=== PATIENT | male | born 1950 | race Caucasian/White ===

== ENCOUNTER 2017-10-30 11:05 | Outpatient (RCR) | payer MEDICARE ==
[~2017-10-30 11:05] MED LIST: ASPIRIN81 MG PO; DILTIAZEM 24HR180 M1 PO; DOXAZOSIN MESYLA2 MG PO; GLUCOSAMINE1000 MG PO; GLYBURIDE-METF1 EAC1 PO; LIPITOR20 MG PO; MULTI-VITAMIN1 EACH PO; NABUMETONE500 MG PO; RAMIPRIL5 MG PO; SLOW RELEASE I143 MG PO; TRIAMTERENE-HCTZ1 EA PO; VITAMIN D5000 UNIT PO
== END 2017-11-29 ==
LOC: WCC 11:05
PROVIDERS: ATTEND Internal Medicine Infectious Disease
DX: E11.65 Type 2 diabetes mellitus with hyperglycemia (principal); I87.332 Chronic venous hypertension (idiopathic) with ulcer and inflammation of left lower extremity; I87.331 Chronic venous hypertension (idiopathic) with ulcer and inflammation of right lower extremity; L97.822 Non-pressure chronic ulcer of other part of left lower leg with fat layer exposed; L97.812 Non-pressure chronic ulcer of other part of right lower leg with fat layer exposed; L97.811 Non-pressure chronic ulcer of other part of right lower leg limited to breakdown of skin; L03.115 Cellulitis of right lower limb; I83.11 Varicose veins of right lower extremity with inflammation; I89.0 Lymphedema, not elsewhere classified; I87.2 Venous insufficiency (chronic) (peripheral); R60.0 Localized edema; R60.9 Edema, unspecified; I73.89 Other specified peripheral vascular diseases; B95.62 Methicillin resistant Staphylococcus aureus infection as the cause of diseases classified elsewhere; B96.5 Pseudomonas (aeruginosa) (mallei) (pseudomallei) as the cause of diseases classified elsewhere; B96.89 Other specified bacterial agents as the cause of diseases classified elsewhere; I10 Essential (primary) hypertension; D50.9 Iron deficiency anemia, unspecified; E66.01 Morbid (severe) obesity due to excess calories; G47.33 Obstructive sleep apnea (adult) (pediatric); I25.10 Atherosclerotic heart disease of native coronary artery without angina pectoris; I50.9 Heart failure, unspecified

== ENCOUNTER 2018-03-21 13:39 | Inpatient (IN) | payer MEDICARE ==
[~2018-03-21] VITALS: Ht 190.5 cm; Wt 210.3 kg
[2018-03-21] VITALS (22 sets, daily range): BP systolic 97–152; BP diastolic 52–79
--- OUTSIDE RECORDS SUMMARY | 2018-03-21 13:41 | XMS REPORT ---
[facility] Address Unknown Phone Unavailable Care Team Providers Care Enamel Sprayer Name Role Phone CORINA CORDOVA Unavailable Unavailable Problems This patient has no known problems. Allergies, Adverse Reactions, Alerts This patient has no known allergies or adverse reactions. Medications This patient has no known medications. Results Test Description Test Time Test Comments Text Results Atomic Results Result Comments CHEST 2 VIEWS [place] [address] Patient Name: VICKI SANTANA MR #: [id number] : 1950 Age/Sex: 66/M Req # : [id number] Adm Physician: Ordered by: CORINA CORDOVA MD Report #: [id number] Location: OR Room/Bed: Procedure: [id number] DX/CHEST 2 VIEWS Exam Date: 08/21/17 Exam Time: 1320 REPORT STATUS: Signed PROCEDURE: Frontal and lateral views of the chest. COMPARISON: [facility], DX, CHEST XRAY LINE PLACEMENT, 03/29/2013, 18:04. INDICATIONS: PREOPERATIVE CHEST XRAY FOR SKIN GRAFT FINDINGS: Exam limited by soft tissue attenuation. Lines/tubes: None. Lungs: The lungs are mildly hypoinflated, but grossly clear. There is no evidence of pneumonia or pulmonary edema. Pleura: There is no pleural effusion or pneumothorax. Heart and mediastinum: Borderline enlarged cardiac silhouette. Pulmonary vasculature is normal. Bones: No acute bony abnormality. IMPRESSION: 1. No acute cardiopulmonary abnormalities. Mary Lay M.D. Dictated by: Mary Lay M.D. on 08/21/2017 at 13:52 Electronically approved by: Mary Lay M.D. on 08/21/2017 at 13:52 Dictated By: MARY LAY MD 1352 Transcribed By: CHARBEL on 08/21/17 1352 COPY TO: CORINA CORDOVA MD
[2018-03-21 14:25] LABS: BASOPHILS % 0.1 % (0.0-1.0); EOSINOPHILS # (AUTO) 0.1 (0.0-0.4); EOSINOPHILS % 0.7 % (0.0-6.0); HEMATOCRIT 35.3 % (38.2-49.6); HEMOGLOBIN 11.9 g/dL (14.0-18.0); LYMPHOCYTES # (AUTO) 0.6 (1.0-3.2); LYMPHOCYTES % 7.3 % (18.0-39.1); MEAN CORPUSCULAR HEMOGLOBIN 32.2 pg (28-32); MEAN CORPUSCULAR HGB CONC 33.7 g/dL (31-35); MEAN CORPUSCULAR VOLUME 95.4 fL (81-99); MONOCYTES # (AUTO) 0.7 (0.2-0.8); NEUTROPHILS # (AUTO) 6.7 (2.1-6.9); NEUTROPHILS % 82.4 % (38.7-80.0); PLATELET COUNT 169 x10e3/uL (140-360); RED CELL DISTRIBUTION WIDTH 13.8 % (11.7-14.4)
[2018-03-21 14:49] LABS: ALBUMIN 2.8 g/dL (3.5-5.0); ALBUMIN/GLOBULIN RATIO 0.8 (0.8-2.0); ANION GAP 13.7 mmol/L (8-16); CREATININE, SERUM 1.48 mg/dL (0.72-1.25); POTASSIUM 3.7 mmol/L (3.5-5.1)
[2018-03-21] MEDS ORDERED: DEXTROSE 50% SYRINGE 50 ML IV STA (14:56)
[2018-03-21 14:58] LABS: CREATINE KINASE MB 3.4 ng/mL (0-5.0)
--- NOTE | 2018-03-21 15:01 | Diagnostic Imaging Report ---
Portable chest x-ray INDICATION: Hypoglycemia, shortness of breath COMPARISON: None FINDINGS: Frontal view of the chest obtained at 1443 hours. Image is compromised due to patient's generous body habitus and underpenetration of the image. The cardiac silhouette is enlarged. The lungs demonstrate low lung volumes. No confluent infiltrates. Central pulmonary vasculature is prominent. No large effusions. There is no pneumothorax. The osseous structures are intact and normal in morphology. IMPRESSION: 1. Cardiomegaly and central vascular congestion. 2. No confluent infiltrates given the limitations of this image. Signed by: Dr. Aditya Brown MD on 03/21/2018 2:58 PM
[2018-03-21] MEDS ORDERED: CIPRO500 MG PO (15:10)
[2018-03-21] MEDS ORDERED: CLINDAMYCIN HC300 MG PO (15:10)
[2018-03-21 15:42] LABS: CLARITY,URINE SL CLOUDY (CLEAR); COLOR,URINE YELLOW (YELLOW); LEUKOCYTE ESTERASE ,URINE TRACE (NEGATIVE); NITRITE,URINE NEGATIVE (NEGATIVE); PROTEIN,URINE DIPSTICK TRACE (NEGATIVE)
[2018-03-21 15:43] LABS: BILIRUBIN,URINE NEGATIVE (NEGATIVE); KETONES,URINE NEGATIVE (NEGATIVE); URINE UROBILINOGEN 0.2 mg/dL (0.2 - 1)
[2018-03-21] MEDS ORDERED: ASPIRIN 81 MG CHEW TAB PO ONE (15:45)
[2018-03-21] MEDS ORDERED: DEXTROSE 50% SYRINGE 50 ML IV ONE ×3 (15:52→19:50)
[2018-03-21 15:54] LABS: BACTERIA,URINE FEW /HPF; EPITHELIAL CELLS,URINE RARE /LPF
[2018-03-21] MEDS: DEXTROSE 5% 1,000 ML IV SCH (16:34)
[2018-03-21] MEDS: CIPROFLOXACIN 500 MG TAB PO SCH (20:37)
[2018-03-21] MEDS: MORPHINE SULFATE 2 MG/ML SYR IV PRN (20:38)
[2018-03-21] MEDS: ATORVASTATIN 20 MG TAB PO SCH (20:40)
[2018-03-21] MEDS: CLINDAMYCIN HCL 150 MG CAP PO SCH (20:40)
[2018-03-21 21:48] LABS: CLARITY,URINE SL CLOUDY (CLEAR); COLOR,URINE YELLOW (YELLOW); LEUKOCYTE ESTERASE ,URINE NEGATIVE (NEGATIVE); NITRITE,URINE NEGATIVE (NEGATIVE)
[2018-03-21 21:49] LABS: BILIRUBIN,URINE NEGATIVE (NEGATIVE); KETONES,URINE NEGATIVE (NEGATIVE); PROTEIN,URINE DIPSTICK TRACE (NEGATIVE); URINE UROBILINOGEN 0.2 mg/dL (0.2 - 1)
[2018-03-21 21:50] LABS: BACTERIA,URINE RARE /HPF; EPITHELIAL CELLS,URINE RARE /LPF
[2018-03-21 22:05] LABS: CREATINE KINASE MB 4.2 ng/mL (0-5.0)
[2018-03-22] VITALS (17 sets, daily range): BP systolic 86–145; BP diastolic 52–91
[2018-03-22] MEDS: MORPHINE SULFATE 2 MG/ML SYR IV PRN ×2 (01:03→04:14)
[2018-03-22 02:50] LABS: CREATINE KINASE MB 3.1 ng/mL (0-5.0)
[2018-03-22 06:13] LABS: BASOPHILS % 0.4 % (0.0-1.0); EOSINOPHILS # (AUTO) 0.1 (0.0-0.4); EOSINOPHILS % 1.5 % (0.0-6.0); HEMATOCRIT 34.8 % (38.2-49.6); HEMOGLOBIN 11.5 g/dL (14.0-18.0); LYMPHOCYTES # (AUTO) 0.6 (1.0-3.2); LYMPHOCYTES % 8.1 % (18.0-39.1); MEAN CORPUSCULAR HEMOGLOBIN 31.3 pg (28-32); MEAN CORPUSCULAR VOLUME 94.8 fL (81-99); MONOCYTES % 12.1 % (4.4-11.3); NEUTROPHILS # (AUTO) 6.2 (2.1-6.9); NEUTROPHILS % 77.4 % (38.7-80.0); PLATELET COUNT 181 x10e3/uL (140-360); RED BLOOD COUNT 3.67 x10e6/uL (4.3-5.7); RED CELL DISTRIBUTION WIDTH 13.7 % (11.7-14.4)
[2018-03-22 06:56] LABS: ALANINE AMINOTRANSFERASE 58 IU/L (0-55); ALBUMIN 2.6 g/dL (3.5-5.0); ALBUMIN/GLOBULIN RATIO 0.7 (0.8-2.0); ALKALINE PHOSPHATASE 81 IU/L (40-150); BLOOD UREA NITROGEN 30 mg/dL (7-26); BUN/CREATININE RATIO 26 (6-25); CALCIUM 9.1 mg/dL (8.4-10.2); CARBON DIOXIDE 27 mmol/L (22-29); CHLORIDE 102 mmol/L (98-107); CHOL/HDL RATIO 3.4 (3.9-4.7); CHOLESTEROL 115 MD/DL (0-199); CREATININE, SERUM 1.14 mg/dL (0.72-1.25); EST GLOMERULAR FILTRATION RATE > 60 ML/MIN (60-); GLUCOSE 99 mg/dL (74-118); HDL CHOLESTEROL 34 MG/DL (40-60); LDL CHOLESTEROL 65 MG/DL (60-130); MAGNESIUM 1.7 MG/DL (1.3-2.1); SODIUM 137 mmol/L (136-145); TRIGLYCERIDES 82 MG/DL (0-149)
[2018-03-22 07:36] LABS: CREATINE KINASE MB 2.8 ng/mL (0-5.0)
[2018-03-22] MEDS ORDERED: GLYBURIDE 5 MG TAB PO SCH (08:00)
[2018-03-22] MEDS ORDERED: METFORMIN HCL 500 MG TAB PO SCH (08:00)
[2018-03-22] MEDS: NABUMETONE 750 MG PO SCH ×2 (09:00→17:00)
[2018-03-22] MEDS ORDERED: DILTIAZEM HCL 180 MG CAP CD PO SCH (09:00)
[2018-03-22] MEDS ORDERED: TRIAMTERENE/HCTZ 37.5-25 MG TAB PO SCH (09:00)
[2018-03-22] MEDS ORDERED: ASPIRIN 325 MG TAB EC PO SCH (09:00)
[2018-03-22] MEDS: GLUCOSAMINE SULFATE 500 MG PO SCH (09:00)
[2018-03-22] MEDS: RAMIPRIL 5 MG CAP PO SCH ×2 (10:00→17:09)
[2018-03-22] MEDS: ASPIRIN 81 MG CHEW TAB PO SCH (10:00)
[2018-03-22] MEDS: CIPROFLOXACIN 500 MG TAB PO SCH ×3 (10:07→21:43)
[2018-03-22] MEDS: CHOLECALCIFEROL 1,000 UNIT TAB PO SCH (10:07)
[2018-03-22] MEDS: CLINDAMYCIN HCL 150 MG CAP PO SCH ×3 (10:07→21:43)
[2018-03-22] MEDS: DOXAZOSIN MESYLATE 2 MG TAB PO SCH ×2 (10:07→17:10)
[2018-03-22] MEDS: MULTIVITAMINS/MINERALS TAB PO SCH (10:07)
[2018-03-22] MEDS ORDERED: DEXTROSE 50% SYRINGE 50 ML IV PRN (11:45)
--- NOTE | 2018-03-22 12:28 | History and Physical ---
Mr. Cerrato is a pleasant but unfortunate 67-year-old man with morbid obesity, sleep apnea and diabetes. He was brought to the emergency room by ambulance after being found to be hypoglycemic. HISTORY OF PRESENT ILLNESS: Patient and his family report that he has recurring problems with cellulitis of the legs and that when is having active cellulitis that he loses his appetite, becomes nauseated and stops eating. He reports he continued to take his oral hypoglycemics and developed very low blood sugars in the night of Thursday night, the 20 of March, and then during the day of March 21. He denies any other active problems. He has never had chest pain or palpitations. PAST MEDICAL HISTORY: Significant primarily for morbid obesity. He reports he is about 6 feet tall, weighing about 500 pounds. He has had sleep apnea for some time, using CPAP, and he has recurring cellulitis of the legs for which he visits the wound care center, he tells me on [address]. He reports that he had skin grafting to his lower legs by Dr. Yañez in October 2017 and previous skin grafts in the past. He had remote appendectomy in his 20s and cholecystectomy in his 50s. MEDICATIONS: His previous home medications include: 1. Aspirin 81 mg daily. 2. Atorvastatin 20 mg daily. 3. Vitamin D. 4. Ciprofloxacin 500 mg t.i.d. 5. Clindamycin 300 mg t.i.d. 6. Diltiazem ER 300 mg daily. 7. Doxazosin 2 mg, total 4 mg b.i.d. 8. Iron sulfate. 9. Glucosamine. 10. Glyburide/metformin 5 and 500 mg b.i.d. 11. Multivitamin. 12. Nabumetone 750 mg b.i.d. 13. Ramipril 5 mg daily. 14. Triamterene and hydrochlorothiazide 37.5 and 25 daily. PERSONAL AND SOCIAL HISTORY: Does not smoke or drink, and he lives at home with his . REVIEW OF SYSTEMS: Cardiac: He denies ever knowing of any cardiac problem. He never had any chest pain or palpitations. He cannot recall visiting with a operations coordinator in the past. PHYSICAL EXAMINATION GENERAL: Exam at this time shows a large, obese man who awakes and is alert and oriented. Weighing about 500 pounds and being about 6 feet tall. VITAL SIGNS: Blood pressure now 127/76. Pulse 80 and regular. HEENT: Otherwise unremarkable. NECK: Very thick. THORAX: Heart sounds S1, S2 are equal. No murmurs. LUNGS: Relatively clear. ABDOMEN: Markedly protuberant. Small purpura. Normal bowel sounds. Nontender. EXTREMITIES: No cyanosis, clubbing or edema, but both anterior tibial regions are reddish. LABS: Pertinent laboratory studies show white count 7.9, hemoglobin 11.5, platelets 181,000. Admitting chemistries showed glucose 49, sodium 137, potassium 3.7, BUN 36, creatinine 1.48. Initial troponin I 1.48, but CK-MB completely normal at 3.40. Albumin is low. Repeat glucoses are 66, 82 and 93. Repeat troponin also abnormal at 1.49, but repeat CK-MB is also completely normal at 4.2. His BNP is 44. Urinalysis showed 6-10 red cells, 11-20 white cells with a few bacteria and 2-5 hyaline casts. ASSESSMENT 1. Hypoglycemia secondary to oral hypoglycemics and stopping eating. 2. Morbid obesity. 3. Cellulitis of the legs, recurring issue. 4. Sleep apnea treated with CPAP. PLAN: Will stop his oral hypoglycemics and ask for endocrine consultation to help manage his diabetic status. Will ask for continuing care from the investigation specialist. Will transfer him to the floor. Job#: [id number] cc:DEUCE REED DO
--- NOTE | 2018-03-22 14:41 | Consultation ---
DATE OF CONSULTATION: March 22, 2018 ENDOCRINE CONSULTATION Thank you very much for referring this patient. HISTORY OF PRESENT ILLNESS: This is a 67-year-old white gentleman who is referred to me for evaluation of hypoglycemia and uncontrolled diabetes mellitus. According to the family, the patient is a known diabetic for almost 10 years and takes a combination of the glyburide and metformin. He had 2 episodes of low blood sugar in the ranges of 29 to 30. He was brought to the emergency room. He was given D50. Patient also has history of obstructive pulmonary disease, morbid obesity. He is on CPAP. He also has cellulitis of both lower extremities. During the hospital stay, patient was also found to have high troponin levels. Patient is on multiple medications at home including the medications for diabetes. No history of coronary artery disease in the past. He has history of hypertension. PHYSICAL EXAMINATION: GENERAL: Today the patient is alert, awake, a little bit apprehensive. He is morbidly obese. VITAL SIGNS: His heart rate is around 78. Blood pressure 140/80 mmHg. HEENT: Examination essentially unremarkable. Thyroid is palpable. Clinically he is near euthyroid. CHEST: Bilateral vesicular breathing. He has got bilateral bronchospasm. CARDIAC: Both 1st and 2nd heart sounds. There is no 3rd or 4th heart sound. Ejection sound grade 2/6. ABDOMEN: He has an obese abdomen. EXTREMITIES: He has cellulitis of both lower extremities. CLINICAL IMPRESSION: 1. Diabetes mellitus type 2, uncontrolled, with complications. 2. Recurrent hypoglycemic episode related to oral hypoglycemics. 3. Hypertension. 4. Obstructive pulmonary disease. 5. Morbid obesity. 6. Cellulitis of the lower extremities. 7. Rule out coronary artery disease. The plan at this time is to do a hemoglobin A1c, thyroid function test. Monitor his blood sugars closely. Hold oral hypoglycemics for now and give him the sliding-scale insulin only for now. Thanks again for referring this patient. I will be following this patient with you. Job#: [id number] EV MTDEvelyn
[2018-03-22 14:48] LABS: FREE T4 (FREE THYROXINE) 1.26 ng/dL (0.9-1.8); THYROID STIMULATING HORMONE 0.216 uIU/mL (0.350-4.940)
[2018-03-22] MEDS: DEXTROSE 5% 1,000 ML IV SCH (16:15)
[2018-03-22] MEDS ORDERED: INSULIN LISPRO 100 UNIT/1 ML 3ML VIAL SQ SCH (16:30)
[2018-03-22] MEDS: INSULIN LISPRO 100 UNIT/1 ML 3ML VIAL SQ SCH ×2 (17:18→21:00)
[2018-03-22] MEDS: ATORVASTATIN 20 MG TAB PO SCH (21:43)
[2018-03-23] VITALS (85 sets, daily range): BP systolic 63–140; BP diastolic 37–106
[2018-03-23] MEDS ORDERED: ACETAMINOPHEN 650 MG SUPP PR PRN (00:45)
[2018-03-23] MEDS: ACETAMINOPHEN 325 MG TAB PO PRN (01:15)
[2018-03-23 03:58] LABS: BASOPHILS # (AUTO) 0.1 (0.0-0.1); BASOPHILS % 0.7 % (0.0-1.0); EOSINOPHILS # (AUTO) 0.1 (0.0-0.4); EOSINOPHILS % 0.5 % (0.0-6.0); HEMATOCRIT 38.2 % (38.2-49.6); HEMOGLOBIN 12.4 g/dL (14.0-18.0); LYMPHOCYTES % 18.5 % (18.0-39.1); MEAN CORPUSCULAR HEMOGLOBIN 31.4 pg (28-32); MEAN CORPUSCULAR HGB CONC 32.5 g/dL (31-35); MEAN CORPUSCULAR VOLUME 96.7 fL (81-99); MONOCYTES % 12.2 % (4.4-11.3); NEUTROPHILS # (AUTO) 10.7 (2.1-6.9); NEUTROPHILS % 65.4 % (38.7-80.0); PLATELET COUNT 208 x10e3/uL (140-360); RED BLOOD COUNT 3.95 x10e6/uL (4.3-5.7); RED CELL DISTRIBUTION WIDTH 13.6 % (11.7-14.4)
[2018-03-23] MEDS ORDERED: PROPOFOL IV EMULSION 10MG/ML 100 ML ONE (04:02)
[2018-03-23 04:09] LABS: INR 1.32; PROTHROMBIN TIME 15.4 seconds (11.9-14.5)
[2018-03-23 04:17] LABS: ALBUMIN 2.6 g/dL (3.5-5.0); ALBUMIN/GLOBULIN RATIO 0.6 (0.8-2.0); ANION GAP 15.5 mmol/L (8-16); CALCIUM 9.4 mg/dL (8.4-10.2); CREATININE, SERUM 1.49 mg/dL (0.72-1.25); MAGNESIUM 1.7 MG/DL (1.3-2.1); POTASSIUM 4.5 mmol/L (3.5-5.1)
[2018-03-23 04:23] LABS: CREATINE KINASE MB 1.1 ng/mL (0-5.0)
--- NOTE | 2018-03-23 04:57 | Diagnostic Imaging Report ---
EXAMINATION: CHEST SINGLE (PORTABLE) INDICATION: Respiratory distress COMPARISON: 03/21/2018 FINDINGS: TUBES and LINES: Endotracheal tube is visualized with tip at the level of the mid trachea 6.7 cm above the osmar LUNGS: Lungs are not well inflated. Multifocal airspace opacities predominantly involving the left lung with air bronchogram. PLEURA: No pleural effusion or pneumothorax. HEART AND MEDIASTINUM: Cardiac size is moderately enlarged. There are atherosclerotic calcifications within the aorta. BONES AND SOFT TISSUES: No acute osseous lesion. Soft tissues are unremarkable. UPPER ABDOMEN: No free air under the diaphragm. IMPRESSION: Findings are compatible with pneumonia versus aspiration Signed by: Dr. Trace Panchal M.D. on 03/23/2018 4:53 AM
[2018-03-23] MEDS ORDERED: NOREPINEPHRINE 8 MG/D5W 250 ML 250 ML ONE (05:13)
[2018-03-23] MEDS: NOREPINEPHRINE INJ 4MG/4ML 8 MG in DEXTROSE 5% 250ML 250 ML IV PRN ×2 (06:16→20:16)
[2018-03-23] MEDS ORDERED: PROPOFOL IV EMULSION 10MG/ML 100 ML IV SCH (06:45)
[2018-03-23 06:47] LABS: LYMPHOCYTES % (MANUAL) 19 % (19-48); METAMYELOCYTES % (MANUAL) 1 % (0-0); MONOCYTES % (MANUAL) 11 % (3.4-9.0); MYELOCYTES % (MANUAL) 2 % (0-0); NEUTROPHILS % (MANUAL) 67 % (40-74)
[2018-03-23 07:18] LABS: ABG HCO3 27 mmol/L (23-28); ABG PCO2 62 mmHg (41-51); ABG PH 7.26 (7.31-7.41); ABG PO2 59 mmHg (80-105)
[2018-03-23 07:27] LABS: ANISOCYTOSIS SLIGHT; PLATELET ESTIMATE ADEQUATE; PLATELET MORPHOLOGY COMMENT NORMAL; RBC MORPHOLOGY COMMENT NORMAL
[2018-03-23] MEDS: INSULIN LISPRO 100 UNIT/1 ML 3ML VIAL SQ SCH ×4 (07:30→22:31)
[2018-03-23 08:05] LABS: BASOPHILS # (AUTO) 0.1 (0.0-0.1); BASOPHILS % 0.3 % (0.0-1.0); EOSINOPHILS % 0.1 % (0.0-6.0); HEMATOCRIT 37.8 % (38.2-49.6); HEMOGLOBIN 12.3 g/dL (14.0-18.0); LYMPHOCYTES # (AUTO) 1.1 (1.0-3.2); MEAN CORPUSCULAR HEMOGLOBIN 31.6 pg (28-32); MEAN CORPUSCULAR HGB CONC 32.5 g/dL (31-35); MEAN CORPUSCULAR VOLUME 97.2 fL (81-99); MONOCYTES # (AUTO) 2.3 (0.2-0.8); NEUTROPHILS # (AUTO) 13.9 (2.1-6.9); PLATELET COUNT 211 x10e3/uL (140-360); RED BLOOD COUNT 3.89 x10e6/uL (4.3-5.7)
[2018-03-23] MEDS ORDERED: PHENYLEPHRINE 10MG/ML VIAL 40 MG in DEXTROSE 5% 250ML 250 ML IV PRN (08:15)
[2018-03-23] MEDS: MIDAZOLAM HCL 25 MG in SODIUM CHLORIDE 0.9% 50ML 45 ML IV PRN ×4 (08:45→21:17)
[2018-03-23] MEDS: HEPARIN 25,000U/0.45% NS 250ML 1,500 UNIT in SODIUM CHLORIDE 0.9% 250ML 0 ML IV SCH (08:52)
--- NOTE | 2018-03-23 08:53 | Diagnostic Imaging Report ---
PROCEDURE: A single AP view of the chest. COMPARISON: None. INDICATIONS: ETT REPOSITIONED FINDINGS: Lines/tubes: Endotracheal tube with its tip above the osmar. Lungs: Diffuse pulmonary opacities compatible with edema. Pleura: Likely small left pleural effusion. Heart and mediastinum: The heart is enlarged. Bones: No acute bony abnormality. IMPRESSION: 1. Endotracheal tube in appropriate location. 2. Cardiomegaly with diffuse pulmonary edema. Amrit Matos D.O. Dictated by: Amrit Matos D.O. on 03/23/2018 at 8:54 Electronically approved by: Amrit Matos D.O. on 03/23/2018 at 8:54
[2018-03-23] MEDS ORDERED: HEPARIN SOD (PORCINE) 1000 UNIT/ML SDV IV ONE (09:00)
[2018-03-23] MEDS: GLUCOSAMINE SULFATE 500 MG PO SCH (09:00)
[2018-03-23] MEDS: CHOLECALCIFEROL 1,000 UNIT TAB PO SCH (09:00)
[2018-03-23] MEDS ORDERED: DILTIAZEM HCL 120 MG CAP CD PO SCH (09:00)
[2018-03-23] MEDS: NABUMETONE 750 MG PO SCH ×2 (09:00→17:00)
[2018-03-23] MEDS ORDERED: DILTIAZEM HCL 180 MG CAP CD PO SCH (09:00)
[2018-03-23] MEDS: MULTIVITAMINS/MINERALS TAB PO SCH (09:00)
[2018-03-23] MEDS: ASPIRIN 81 MG CHEW TAB PO SCH (09:00)
[2018-03-23 09:26] LABS: ABG HCO3 26 mmol/L (23-28); ABG PCO2 52 mmHg (41-51); ABG PH 7.31 (7.31-7.41); ABG PO2 76 mmHg (80-105)
--- NOTE | 2018-03-23 09:45 | Consultation ---
DATE OF CONSULTATION: PULMONARY CONSULTATION This is a patient of Dr. Hoskins and Dr. Clark. 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 Last night, he had a witnessed arrest at approximately 3:30 in the morning of PEA. He is currently intubated on mechanical ventilator support and pressors. PAST HISTORY: Diabetes, obstructive sleep apnea, cellulitis and hypertension. ALLERGIES: NO KNOWN ALLERGIES. MEDICATIONS: Include iron, aspirin, Lipitor, vitamin D, Cipro, Cleocin, diltiazem, doxazosin, glyburide, metformin, Relafen, Altace and Dyazide. SURGICAL HISTORY: Appendectomy in the past and skin grafts. PHYSICAL EXAMINATION VITALS: Temperature 101.1, pulse 109, blood pressure 80/31. HEENT: Head is normocephalic and atraumatic. NECK: Trachea is midline. LUNGS: Diminished breath sounds bilaterally. HEART: Regular rhythm. ABDOMEN: Obese. EXTREMITIES: Wrapped. IMPRESSION: Cardiac arrest, possible pulmonary embolus. Too large and too unstable for CT angiogram. If clot can be seen on echocardiogram or Doppler of lower extremities, would proceed with intravenous tPA. These are pending. Plan for central line and IV heparin pending those results. Pros and cons of transfer were discussed with the patient's family and with Dr. Clark. Patient remains critically ill. ET tube was a bit high and will be repositioned. Thank you for this kind referral. Job#: [id number]
--- NOTE | 2018-03-23 10:46 | Diagnostic Imaging Report ---
PROCEDURE: A single AP view of the chest. COMPARISON: None. INDICATIONS: PICC LINE PLACEMENT FINDINGS: Lines/tubes: Right-sided PICC has been placed. Tip of this cannot be localized due to the patient's body habitus. Lungs: Diffuse pulmonary opacities persist. Pleura: Left pleural effusion. Heart and mediastinum: The heart remains enlarged. Bones: No acute bony abnormality. IMPRESSION: 1. Diffuse pulmonary edema. 2. Right-sided PICC tip can not be optimally visualized. Amrit Matos D.O. Dictated by: Amrit Matos D.O. on 03/23/2018 at 10:47 Electronically approved by: Amrit Matos D.O. on 03/23/2018 at 10:47
[2018-03-23 12:03] LABS: INR 1.3; PROTHROMBIN TIME 15.2 seconds (11.9-14.5)
[2018-03-23 12:04] LABS: PARTIAL THROMBOPLASTIN TIME 41.8 seconds (23.8-35.5)
[2018-03-23 12:06] LABS: LYMPHOCYTES % (MANUAL) 4 % (19-48); MONOCYTES % (MANUAL) 17 % (3.4-9.0); NEUTROPHILS % (MANUAL) 79 % (40-74)
[2018-03-23 12:07] LABS: PLATELET ESTIMATE ADEQUATE; RBC MORPHOLOGY COMMENT NORMAL
--- NOTE | 2018-03-23 12:45 | Diagnostic Imaging Report ---
PROCEDURE: A single AP view of the chest. COMPARISON: None. INDICATIONS: PICC LINE PLACEMENT FINDINGS: Lines/tubes: Right-sided PICC appears to terminate overlying the SVC. Endotracheal tube above the osmar. Lungs: Diffuse pulmonary edema. Pleura: Left pleural effusion. Heart and mediastinum: The heart is enlarged. Bones: No acute bony abnormality. IMPRESSION: Right-sided PICC as described above. Amrit Matos D.O. Dictated by: Amrit Matos D.O. on 03/23/2018 at 12:46 Electronically approved by: Amrit Matos D.O. on 03/23/2018 at 12:46
[2018-03-23] MEDS: PIPER-TAZ 3.375 GM 100 ML IV SCH ×2 (13:00→18:57)
[2018-03-23] MEDS ORDERED: SODIUM CHLORIDE 0.9% 250ML 250 ML ONE (13:14)
[2018-03-23] MEDS: PANTOPRAZOLE 40 MG 10ML VIAL IV SCH (13:53)
[2018-03-23] MEDS ORDERED: HEPARIN SOD (PORCINE) 5,000 UNIT/ML VIAL ONE (14:00)
[2018-03-23 15:11] LABS: ABG HCO3 27 mmol/L (23-28); ABG PCO2 56 mmHg (41-51); ABG PH 7.29 (7.31-7.41); ABG PO2 79 mmHg (80-105)
[2018-03-23] MEDS: DEXTROSE 5% 1,000 ML IV SCH (16:15)
--- NOTE | 2018-03-23 16:18 | Diagnostic Imaging Report ---
PROCEDURE:ABDOMEN-1VIEW (KUB) INDICATION:NG tube placement COMPARISON:None. FINDINGS:NG tube extends below the diaphragm. Limited study due to the patient's body habitus. CONCLUSION:NG tube below the diaphragm. Amrit Matos D.O. Dictated by: Amrit Matos D.O. on 03/23/2018 at 16:19 Electronically approved by: Amrit Matos D.O. on 03/23/2018 at 16:19
[2018-03-23] MEDS: ALBUTEROL SULF 0.083% NEB SOLN 3 ML NEB NEB SCH (19:10)
[2018-03-23] MEDS ORDERED: SUCCINYLCHOLINE CHLORIDE 20 MG/ML 10ML VIAL ONE (19:32)
[2018-03-23] MEDS ORDERED: EPINEPHRINE HCL SYRINGE ONE (19:32)
[2018-03-23] MEDS ORDERED: ETOMIDATE 40 MG/ 20ML VIAL IV ONE (19:32)
[2018-03-23] MEDS ORDERED: WATER STERILE 10 ML VIAL ONE (19:32)
[2018-03-23] MEDS ORDERED: INSULIN DETEMIR 100 UNIT/ML PEN SQ SCH (21:00)
[2018-03-23] MEDS: SODIUM CHLORIDE 0.9% 1000ML 1,000 ML IV SCH ×2 (21:58→22:57)
[2018-03-23] MEDS: VASOPRESSIN 100 UNIT in DEXTROSE 5% 100ML 100 ML IV PRN (22:12)
[2018-03-23] MEDS: ATORVASTATIN 20 MG TAB PO SCH (22:30)
[2018-03-24] VITALS (94 sets, daily range): BP systolic 86–143; BP diastolic 61–97
[2018-03-24] MEDS: MORPHINE SULFATE 2 MG/ML SYR IV PRN ×3 (00:12→12:30)
[2018-03-24] MEDS: ALBUTEROL SULF 0.083% NEB SOLN 3 ML NEB NEB SCH ×4 (01:00→20:05)
[2018-03-24] MEDS: MIDAZOLAM HCL 25 MG in SODIUM CHLORIDE 0.9% 50ML 45 ML IV PRN ×4 (02:43→22:20)
[2018-03-24] MEDS: HEPARIN 25,000U/0.45% NS 250ML 1,500 UNIT in SODIUM CHLORIDE 0.9% 250ML 0 ML IV SCH (02:43)
[2018-03-24] MEDS: SODIUM CHLORIDE 0.9% 1000ML 1,000 ML IV SCH ×3 (05:15→17:15)
[2018-03-24] MEDS: ACETAMINOPHEN 325 MG TAB PO PRN (05:15)
[2018-03-24] MEDS: PIPER-TAZ 3.375 GM 100 ML IV SCH ×5 (06:09→23:03)
[2018-03-24 06:16] LABS: BASOPHILS # (AUTO) 0.1 (0.0-0.1); BASOPHILS % 0.4 % (0.0-1.0); EOSINOPHILS # (AUTO) 0.1 (0.0-0.4); EOSINOPHILS % 1.1 % (0.0-6.0); HEMATOCRIT 31.7 % (38.2-49.6); HEMOGLOBIN 10.6 g/dL (14.0-18.0); LYMPHOCYTES # (AUTO) 1.2 (1.0-3.2); MEAN CORPUSCULAR HEMOGLOBIN 31.5 pg (28-32); MEAN CORPUSCULAR HGB CONC 33.4 g/dL (31-35); MEAN CORPUSCULAR VOLUME 94.3 fL (81-99); MONOCYTES # (AUTO) 1.2 (0.2-0.8); MONOCYTES % 10.5 % (4.4-11.3); NEUTROPHILS # (AUTO) 8.9 (2.1-6.9); NEUTROPHILS % 76.6 % (38.7-80.0); PLATELET COUNT 198 x10e3/uL (140-360); RED BLOOD COUNT 3.36 x10e6/uL (4.3-5.7)
[2018-03-24 06:51] LABS: CALCIUM 8.5 mg/dL (8.4-10.2); CREATININE, SERUM 2.62 mg/dL (0.72-1.25)
[2018-03-24] MEDS: ASPIRIN 81 MG CHEW TAB PO SCH (08:27)
[2018-03-24] MEDS: PANTOPRAZOLE 40 MG 10ML VIAL IV SCH (08:27)
[2018-03-24] MEDS: GLUCOSAMINE SULFATE 500 MG PO SCH (08:27)
[2018-03-24] MEDS: MULTIVITAMINS/MINERALS TAB PO SCH (09:00)
[2018-03-24] MEDS: CHOLECALCIFEROL 1,000 UNIT TAB PO SCH (09:00)
[2018-03-24] MEDS: NABUMETONE 750 MG PO SCH ×2 (09:00→17:00)
--- NOTE | 2018-03-24 11:48 | Diagnostic Imaging Report ---
PROCEDURE:CHEST SINGLE (PORTABLE) TECHNIQUE:Portable AP chest INDICATION:Intubation COMPARISON:[facility], DX, CHEST XRAY LINE PLACEMENT, 03/23/2018, 11:52. FINDINGS: See conclusion. CONCLUSION: Study is significantly limited by body habitus, underpenetration and motion. Within the limitation, the endotracheal tube tip is approximately 3.5 cm from the osmar. Grossly stable bilateral (left greater than right) airspace opacities consistent with multifocal pneumonia. Grossly stable cardiomegaly. Questionable left pleural effusion. Dictated by: Amadeo Maciel M.D. on 03/24/2018 at 11:49 Electronically approved by: Amadeo Maciel M.D. on 03/24/2018 at 11:49
[2018-03-24] MEDS: INSULIN LISPRO 100 UNIT/1 ML 3ML VIAL SQ SCH ×3 (12:23→23:12)
[2018-03-24] MEDS ORDERED: FUROSEMIDE INJ 10 MG/ML 2 ML VIAL IV ONE (12:30)
--- NOTE | 2018-03-24 13:35 | Consultation ---
DATE OF CONSULTATION: March 24, 2018 NEPHROLOGY CONSULT REASON FOR THE CONSULT: Acute kidney injury. HISTORY OF PRESENT ILLNESS: This is a 67-year-old male who is known to have hypertension, diabetes, and obstructive sleep apnea. He was recently diagnosed with right lower extremity cellulitis for which he was started on clindamycin and ciprofloxacin 500 mg p.o. t.i.d. for a few days, and then he felt worse and he was getting some shortness of breath. He came for admission as his blood sugar was dropping at home and he was having hypoglycemia with alteration in his mental status. So, he came to the ER. He was given D50, and then his sugar has been improving. He was on the floor, and on the 22 of March he coded for almost 5 minutes with a PEA, and he was resuscitated, transferred to ICU. He was hypotensive on vasopressin and Levophed. It was noted that his creatinine is going up, and thus we are consulted. So far his urine output is between 30 to 40 mL an hour. He is intubated now. He is on sedation. However, he is able to follow simple commands. PAST MEDICAL HISTORY: As mentioned above. PAST SURGICAL HISTORY: Status post cholecystectomy and appendectomy. ALLERGIES: NEGATIVE PER RECORDS. FAMILY HISTORY: Positive for hypertension and diabetes. SOCIAL HISTORY: No smoking, alcohol or drug abuse. VITAL SIGNS: For today blood pressure 110/64 off pressors. Heart rate is 82. Temperature 98.8. PHYSICAL EXAMINATION GENERAL APPEARANCE: No acute distress. Sedated. Intubated. Follows simple commands. HEAD, EARS, EYES, NECK: No lymphadenopathy. HEART: Regular rate and rhythm. LUNGS: Bilateral rales. ABDOMEN: Soft, nontender. Morbidly obese. EXTREMITIES: +1 edema. His labs for today include sodium 137, potassium is 5, his CO2 is 25, BUN is 44, creatinine up from 1.48 to 2.62. His A1c was 6. LFTs are going up. Lactic acid is 18.2. Magnesium 1.7. BNP is 55.7. Albumin is 2.6. Chest x-ray reviewed with multifocal pneumonia. Venous Doppler negative for PE. ASSESSMENT AND PLAN 1. Acute kidney injury on top of chronic kidney disease stage 3. I am suspecting his GFR 47 mL per minute on admission, he might have underlying diabetic nephrosclerosis. Will try to get the records from his PCP to compare and get a baseline. In the meantime, suspect acute worsening in the setting of status post cardiac arrest with ATN, nonoliguric, secondary to arterial underfilling and renal hypoperfusion. I am going to check his ultrasound and urine studies. Also, the patient was started on ciprofloxacin as an outpatient on 500 mg t.i.d. There might be element of interstitial nephritis on admission to begin with. So, at this time avoid nephrotoxins. Holding ramipril and triamterene/hydrochlorothiazide, and the patient was bolused with IV fluids normal saline. Blood pressure is better supported. I hope his creatinine will go up and plateau and then start coming down. Avoid any further nephrotoxins and nonsteroidal anti-inflammatory drugs. 2. Electrolytes. Potassium is high. Change to be feeding to Nepro. 3. Volume status. He is edematous on physical exam and his urine output around 30 to 40 mL an hour. I am going to challenge with albumin and Lasix. 4. Status post cardiac arrest, pulseless electrical activity. Suspect could be a PE. The patient also on heparin drip. Cardiology is following. Echo was ordered. Venous Doppler is negative for DVT. 5. Aspiration pneumonia. He is on antibiotics. Pulmonary is following. 6. Respiratory failure. He is intubated, on low-dose sedation, and he follows simple commands. He has morbid obesity with obstructive sleep apnea; so, I guess extubation is going to be challenging. Dr. Brown is following. Will follow his recommendation. 7. Hypoglycemia on admission. Now his blood sugar is better. A1c is 6. 8. Hypotension. With low blood pressure, holding ALTAGRACIA inhibitors and triamterene/hydrochlorothiazide. In the meantime, I am going to give him serial albumin, and he is off Levophed and vasopressin. Monitor closely. Thank you for the consult. We will update the primary team for further recommendations. Job#: [id number] CHOCO
[2018-03-24] MEDS: ALBUMIN 5% 250 ML IV SCH ×2 (13:56→23:03)
[2018-03-24 14:26] LABS: ABG HCO3 26 mmol/L (23-28); ABG PCO2 48 mmHg (41-51); ABG PH 7.34 (7.31-7.41); ABG PO2 77 mmHg (80-105)
--- NOTE | 2018-03-24 15:50 | Diagnostic Imaging Report ---
PROCEDURE:US RETROPERITONEAL ( KIDNEY ). COMPARISON:None. INDICATIONS:ASIM TECHNIQUE: Pelayo-scale and color sonographic images of the bilateral kidneys and bladder where obtained in transverse and longitudinal planes. Examination limited due to increased body habitus. FINDINGS: RIGHT KIDNEY: 14.8 cm, cortex 2.3 cm Cysts: Right renal simple cysts. Solid masses: None. Stones: None. Hydronephrosis: None. Echogenicity: Normal. LEFT KIDNEY: 15.8 cm, cortex 2.7 cm Cysts: None. Solid masses: None. Stones: None. Hydronephrosis: None. Echogenicity: Normal. Bladder: Mo catheter is present in the decompressed urinary bladder. Prostate: Not visualized. CONCLUSION: No acute sonographic abnormality. Right renal simple cysts. Dictated by: Dev Rashid M.D. on 03/24/2018 at 15:51 Electronically approved by: Dev Rashid M.D. on 03/24/2018 at 15:51
--- NOTE | 2018-03-24 17:52 | Consultation ---
DATE OF CONSULTATION: March 24, 2018 CARDIOLOGY CONSULTATION REQUESTING PHYSICIAN: Dr. Brown REASON FOR CONSULTATION: Cardiac arrest. HISTORY OF PRESENT ILLNESS: This is a 67-year-old man with history of hypertension, diabetes mellitus, obstructive sleep apnea, and morbid obesity who was brought into the emergency room due to altered mental status secondary to hypoglycemia. The patient has had recurrent episodes of lower extremity cellulitis. He developed cellulitis Thursday and was seen by wound care. He was started on clindamycin and ciprofloxacin. However, the family noted he developed hypoglycemia with blood sugar as low as 29 on Thursday night. EMS was called, and his hypoglycemia was treated. However, the patient refused to present to the hospital. The following day, the family noted he had altered mental status again. EMS was called, and they found the patient disoriented and brought the patient to the [facility] ER. In the ER, he was noted to have troponin elevation of 0.485 with glucose of 49 and acute kidney injury. He was admitted to the ICU for close monitoring. He was subsequently transferred to the floor. That morning, while he was receiving a bath, he became unresponsive and lost a pulse. Sarah parrish was called. Initial rhythm was PEA, and he received 1 round of epinephrine prior to return of spontaneous circulation. He was subsequently intubated and transferred to the ICU on pressor support. Per family request, we are consulted to take over his cardiac care. Prior to this event, the patient denied any chest pain, shortness of breath, or palpitations. All history is obtained via family at bedside, as the patient is currently intubated and sedated. REVIEW OF SYSTEMS: Unable to obtain secondary to intubation and sedation. PAST MEDICAL HISTORY: Hypertension, diabetes mellitus, obstructive sleep apnea, morbid obesity. PAST SURGICAL HISTORY: Cholecystectomy, appendectomy, skin graft. ALLERGIES: NO KNOWN DRUG ALLERGIES. MEDICATIONS: Please see medication list. SOCIAL HISTORY: No tobacco or drugs. Occasional alcohol. FAMILY HISTORY: Noncontributory. PHYSICAL EXAMINATION VITALS: Temperature 98.5, pulse 83, respiratory rate 24, blood pressure 101/68, oxygen saturation 95% on mechanical ventilation. GENERAL: Morbidly obese man, intubated and sedated. HEENT: Normocephalic and atraumatic. NECK: Supple. No thyromegaly or cervical lymphadenopathy. No carotid bruit. LUNGS: Clear to auscultation on the right with decreased breath sounds on the left. CARDIOVASCULAR: Normal rate, regular rhythm. No murmur. Normal S1 and S2. ABDOMEN: Soft. Obese. Nontender. EXTREMITIES: There is 1+ pitting edema with compression wrappings noted bilaterally. NEURO: Unable to assess secondary to intubation and sedation. LABS: WBC 11.64, hemoglobin 10.6, hematocrit 31.7, platelets 198. Sodium 137, potassium 5, chloride 102, CO2 25, BUN 44, creatinine 2.62. EKG: Normal sinus rhythm with right bundle-branch block. CHEST X-RAY: Limited by body habitus but bilateral left greater than right air space opacities consistent with multifocal pneumonia. Grossly stable cardiomegaly. Questionable left pleural effusion. IMPRESSION: 1. Status post PEA arrest 2. Suspected pulmonary embolus, unable to confirm secondary to inability to CT patient 3. Acute kidney injury 4. Multifocal pneumonia 5. Hypotension 6. Acute respiratory failure requiring ventilatory support 7. Diabetes mellitus 8. Right lower extremity cellulitis RECOMMENDATIONS: Patient's cardiac arrest suspected to be secondary to pulmonary embolism. However, as patient exceeds weight limit for CT scan, this can not be confirmed. Empiric treatment with heparin drip. SAIM likely secondary to cardiac arrest. Monitor creatinine. Antibiotics per medicine. Ventilator management per pulmonary. Keep on telemetry. Continue supportive care. Job#: [id number] AMY REYNOLDS
[2018-03-24] MEDS ORDERED: ALBUMIN 5% 250ML IV SCH (18:00)
[2018-03-24 18:38] LABS: CALCIUM 8.9 mg/dL (8.4-10.2); CREATININE, SERUM 2.43 mg/dL (0.72-1.25)
[2018-03-24] MEDS: ATORVASTATIN 20 MG TAB PO SCH (20:22)
[2018-03-24] MEDS: INSULIN DETEMIR 100 UNIT/ML PEN SQ SCH (20:38)
[2018-03-25] VITALS (29 sets, daily range): BP systolic 107–165; BP diastolic 65–133
[2018-03-25] MEDS: MIDAZOLAM HCL 25 MG in SODIUM CHLORIDE 0.9% 50ML 45 ML IV PRN ×3 (00:30→21:25)
[2018-03-25] MEDS: ALBUTEROL SULF 0.083% NEB SOLN 3 ML NEB NEB SCH ×4 (02:40→20:25)
[2018-03-25] MEDS: ALBUMIN 5% 250 ML IV SCH ×2 (05:19→12:00)
[2018-03-25] MEDS: PIPER-TAZ 3.375 GM 100 ML IV SCH ×4 (05:19→23:15)
[2018-03-25] MEDS: INSULIN LISPRO 100 UNIT/1 ML 3ML VIAL SQ SCH ×4 (05:20→23:15)
[2018-03-25 06:11] LABS: BASOPHILS # (AUTO) 0.1 (0.0-0.1); BASOPHILS % 0.7 % (0.0-1.0); EOSINOPHILS # (AUTO) 0.3 (0.0-0.4); EOSINOPHILS % 2.3 % (0.0-6.0); HEMATOCRIT 33.1 % (38.2-49.6); HEMOGLOBIN 10.9 g/dL (14.0-18.0); LYMPHOCYTES % 8.1 % (18.0-39.1); MEAN CORPUSCULAR HEMOGLOBIN 31.5 pg (28-32); MEAN CORPUSCULAR HGB CONC 32.9 g/dL (31-35); MEAN CORPUSCULAR VOLUME 95.7 fL (81-99); MONOCYTES # (AUTO) 1.3 (0.2-0.8); MONOCYTES % 10.5 % (4.4-11.3); NEUTROPHILS % 75.7 % (38.7-80.0); PLATELET COUNT 224 x10e3/uL (140-360); RED BLOOD COUNT 3.46 x10e6/uL (4.3-5.7); RED CELL DISTRIBUTION WIDTH 14.1 % (11.7-14.4)
[2018-03-25 06:21] LABS: ANION GAP 15.9 mmol/L (8-16); CALCIUM 8.9 mg/dL (8.4-10.2); CREATININE, SERUM 2.05 mg/dL (0.72-1.25); MAGNESIUM 1.9 MG/DL (1.3-2.1); PHOSPHORUS 4.5 MG/DL (2.3-4.7); POTASSIUM 4.9 mmol/L (3.5-5.1)
--- NOTE | 2018-03-25 07:13 | Diagnostic Imaging Report ---
EXAMINATION: CHEST SINGLE (PORTABLE) INDICATION: ARDS. COMPARISON: 03/24/2018 FINDINGS: TUBES and LINES: Endotracheal tube is visualized with tip at the level of the mid trachea 3.7 cm above the osmar LUNGS: Lungs are not well inflated. Multifocal airspace opacities predominantly involving the left lung There is perihilar interstitial opacities. PLEURA: No pleural effusion or pneumothorax. HEART AND MEDIASTINUM: Cardiac size is moderately enlarged. There are atherosclerotic calcifications within the aorta. BONES AND SOFT TISSUES: No acute osseous lesion. Soft tissues are unremarkable. UPPER ABDOMEN: No free air under the diaphragm. IMPRESSION: 1. Limited evaluation due to patient's body habitus 2. Findings are compatible with pneumonia versus aspiration 3. Superimposed edema cannot be excluded. Signed by: Dr. Trace Panchal M.D. on 03/25/2018 7:10 AM
[2018-03-25] MEDS: ASPIRIN 81 MG CHEW TAB PO SCH (07:46)
[2018-03-25 08:37] LABS: ANISOCYTOSIS SLIGHT; HYPOCHROMASIA SLIGHT; LYMPHOCYTES % (MANUAL) 11 % (19-48); MONOCYTES % (MANUAL) 8 % (3.4-9.0); NEUTROPHILS % (MANUAL) 81 % (40-74); RBC MORPHOLOGY COMMENT NORMAL
[2018-03-25 08:38] LABS: PLATELET ESTIMATE ADEQUATE; PLATELET MORPHOLOGY COMMENT NORMAL
[2018-03-25] MEDS: GLUCOSAMINE SULFATE 500 MG PO SCH (09:00)
[2018-03-25] MEDS: NABUMETONE 750 MG PO SCH ×2 (09:00→16:04)
[2018-03-25] MEDS ORDERED: HYDROMORPHONE 1MG/1ML INJ ONE (09:38)
[2018-03-25] MEDS: PANTOPRAZOLE 40 MG 10ML VIAL IV SCH (09:40)
[2018-03-25] MEDS: HEPARIN 25,000U/0.45% NS 250ML 1,500 UNIT in SODIUM CHLORIDE 0.9% 250ML 0 ML IV SCH ×2 (09:42→23:08)
[2018-03-25] MEDS: CHOLECALCIFEROL 1,000 UNIT TAB PO SCH (09:43)
[2018-03-25] MEDS: HYDROMORPHONE 1MG/1ML INJ IV PRN (09:43)
[2018-03-25] MEDS: MULTIVITAMINS/MINERALS TAB PO SCH (09:43)
[2018-03-25] MEDS ORDERED: METRONIDAZOLE 500MG/NS 100ML 100 ML IV ONE (09:57)
[2018-03-25] MEDS: METRONIDAZOLE 500MG/NS 100ML 100 ML IV SCH ×3 (10:12→21:01)
[2018-03-25 11:59] LABS: ABG HCO3 27 mmol/L (23-28); ABG PCO2 52 mmHg (41-51); ABG PH 7.33 (7.31-7.41); ABG PO2 64 mmHg (80-105)
--- NOTE | 2018-03-25 12:08 | Progress Note ---
DATE: March 25, 2018 CARDIOLOGY PROGRESS NOTE SUBJECTIVE: The patient remains intubated and sedated. He was weaned off pressors yesterday however he continues to have significant ventilatory requirements and was unable to tolerate tube feeding. OBJECTIVE VITAL SIGNS: Temperature 100 degrees, pulse 97, respiratory rate 24, blood pressure 144/117, oxygen saturation 99% on mechanical ventilation. GENERAL: Morbidly obese man, intubated and sedated. LUNGS: Clear to auscultation on the right with decreased breath sounds on the left. CARDIOVASCULAR: Normal rate, regular rhythm. No murmur. Normal S1, S2. ABDOMEN: Soft, nontender. EXTREMITIES: 1+ pitting edema is present with compression wrappings noted bilaterally. CARDIAC MEDICATIONS: Atorvastatin 20 mg p.o. nightly, aspirin 81 mg p.o. daily. LABS: WBC 11.91, hemoglobin 10.9, hematocrit 33.1, platelets 224, sodium 139, potassium 4.9, chloride 103, CO2 25, BUN 48, creatinine 2.05. TELEMETRY: Sinus tachycardia. IMPRESSION 1. Status post cardiac arrest, pulseless electrical activity. 2. Suspected pulmonary embolus. Unable to be confirmed secondary to inability to CT patient. 3. Acute kidney injury, improving. 4. Multifocal pneumonia. 5. Msbbe-co-upiansp diastolic heart failure. 6. Acute respiratory failure requiring ventilatory support. 7. Suspect aspiration pneumonia. 8. Hypertension. 9. Diabetes mellitus. 10. Right lower extremity cellulitis. RECOMMENDATIONS: Patient's cardiac arrest was suspected to be secondary to pulmonary embolism however patient exceeds the weight limit for the CT scanner. Will clarify but he likely exceeds the weight limit for VQ scan as well. Empiric treatment with heparin drip, we will continue. ASIM was likely secondary to patient's cardiac arrest. Creatinine is improving. Agree with diuresis. Antibiotics per Medicine given patient's suspected aspiration pneumonia. Ventilator measurement per Pulmonary. Cultures, no growth thus far. Job#: [id number] MARTINA
[2018-03-25] MEDS: METOCLOPRAMIDE HCL 10 MG/2ML VIAL IV SCH ×2 (16:04→20:30)
[2018-03-25] MEDS: FUROSEMIDE INJ 10 MG/ML 4 ML VIAL IV SCH (20:30)
[2018-03-25] MEDS: ATORVASTATIN 20 MG TAB PO SCH (20:30)
[2018-03-25] MEDS: INSULIN DETEMIR 100 UNIT/ML PEN SQ SCH (21:00)
[2018-03-26] MEDS: MIDAZOLAM HCL 25 MG in SODIUM CHLORIDE 0.9% 50ML 45 ML IV PRN ×9 (00:02→23:10)
[2018-03-26] MEDS: ALBUTEROL SULF 0.083% NEB SOLN 3 ML NEB NEB SCH ×4 (01:15→18:52)
[2018-03-26] MEDS: ACETYLCYSTEINE 20% INHAL SOLN 30 ML VIAL INH SCH ×4 (01:15→18:52)
[2018-03-26 02:42] LABS: ABG HCO3 30 mmol/L (23-28); ABG PCO2 53 mmHg (41-51); ABG PH 7.35 (7.31-7.41); ABG PO2 54 mmHg (80-105)
[2018-03-26] MEDS: HYDROMORPHONE 1MG/1ML INJ IV PRN (02:45)
[2018-03-26] MEDS ORDERED: FENTANYL CITRATE INJ 2,000 MCG in SODIUM CHLORIDE 0.9% 250ML 210 ML IV PRN (03:15)
[2018-03-26] MEDS: PIPER-TAZ 3.375 GM 100 ML IV SCH ×4 (05:19→23:10)
[2018-03-26] MEDS: INSULIN LISPRO 100 UNIT/1 ML 3ML VIAL SQ SCH ×4 (05:20→23:15)
[2018-03-26] MEDS: METRONIDAZOLE 500MG/NS 100ML 100 ML IV SCH ×3 (06:00→21:18)
[2018-03-26 06:21] LABS: BASOPHILS # (AUTO) 0.1 (0.0-0.1); BASOPHILS % 0.9 % (0.0-1.0); EOSINOPHILS # (AUTO) 0.3 (0.0-0.4); EOSINOPHILS % 2.8 % (0.0-6.0); HEMATOCRIT 34.8 % (38.2-49.6); HEMOGLOBIN 11.3 g/dL (14.0-18.0); LYMPHOCYTES # (AUTO) 1.2 (1.0-3.2); LYMPHOCYTES % 10.2 % (18.0-39.1); MEAN CORPUSCULAR HEMOGLOBIN 31.3 pg (28-32); MEAN CORPUSCULAR HGB CONC 32.5 g/dL (31-35); MEAN CORPUSCULAR VOLUME 96.4 fL (81-99); MONOCYTES # (AUTO) 1.5 (0.2-0.8); MONOCYTES % 13.3 % (4.4-11.3); NEUTROPHILS # (AUTO) 7.6 (2.1-6.9); NEUTROPHILS % 65.5 % (38.7-80.0); PLATELET COUNT 229 x10e3/uL (140-360); RED BLOOD COUNT 3.61 x10e6/uL (4.3-5.7)
[2018-03-26 06:45] LABS: ANION GAP 14.9 mmol/L (8-16); CALCIUM 9.6 mg/dL (8.4-10.2); CREATININE, SERUM 1.71 mg/dL (0.72-1.25); POTASSIUM 4.9 mmol/L (3.5-5.1)
[2018-03-26 07:08] LABS: MAGNESIUM 1.8 MG/DL (1.3-2.1); PHOSPHORUS 4.4 MG/DL (2.3-4.7)
[2018-03-26 07:52] VITALS: BP 158/77
--- NOTE | 2018-03-26 08:03 | Diagnostic Imaging Report ---
PROCEDURE: A single AP view of the chest. COMPARISON: Patients [facility], , CHEST SINGLE (PORTABLE), 03/25/2018, 6:31. INDICATIONS: INTUBATED FINDINGS: Lines/tubes: ET tube appropriate position. There is an NG tube extending below the diaphragm. Right-sided PICC difficult to localize the tip. Lungs: Unchanged diffuse pulmonary edema. Pleura: There is no pleural effusion or pneumothorax. Heart and mediastinum: The heart remains enlarged.. Bones: No acute bony abnormality. IMPRESSION: No significant interval change. Amrit Matos D.O. Dictated by: Amrit Matos D.O. on 03/26/2018 at 8:04 Electronically approved by: Amrit Matos D.O. on 03/26/2018 at 8:04
[2018-03-26] MEDS: GLUCOSAMINE SULFATE 500 MG PO SCH (08:06)
[2018-03-26] MEDS: NABUMETONE 750 MG PO SCH ×2 (08:06→17:00)
[2018-03-26] MEDS: FUROSEMIDE INJ 10 MG/ML 4 ML VIAL IV SCH ×2 (08:39→20:10)
[2018-03-26] MEDS: ACETAMINOPHEN 325 MG TAB PO PRN (08:39)
[2018-03-26] MEDS: CHOLECALCIFEROL 1,000 UNIT TAB PO SCH (08:39)
[2018-03-26] MEDS: MULTIVITAMINS/MINERALS TAB PO SCH (08:39)
[2018-03-26] MEDS: METOCLOPRAMIDE HCL 10 MG/2ML VIAL IV SCH ×3 (08:39→20:10)
[2018-03-26] MEDS: PANTOPRAZOLE 40 MG 10ML VIAL IV SCH (08:39)
[2018-03-26] MEDS: ASPIRIN 81 MG CHEW TAB PO SCH (08:39)
[2018-03-26 08:45] LABS: EOSINOPHILS % (MANUAL) 1 % (0-7); HYPOCHROMASIA SLIGHT; LYMPHOCYTES % (MANUAL) 8 % (19-48); MONOCYTES % (MANUAL) 15 % (3.4-9.0); MYELOCYTES % (MANUAL) 1 % (0-0); NEUTROPHILS % (MANUAL) 74 % (40-74)
[2018-03-26 08:46] LABS: ANISOCYTOSIS SLIGHT; PLATELET ESTIMATE ADEQUATE; PLATELET MORPHOLOGY COMMENT NORMAL; RBC MORPHOLOGY COMMENT NORMAL
[2018-03-26] MEDS ORDERED: HYDROMORPHONE 20MG/ NS 100ML IV PRN (09:00)
[2018-03-26] MEDS: VANCOMYCIN 750MG/NS 150ML IVPB 150 ML IV SCH ×2 (09:45→20:10)
[2018-03-26] MEDS: HYDROMORPHONE 100 ML IV PRN (09:45)
[2018-03-26 12:07] VITALS: BP 108/65
[2018-03-26 12:42] LABS: ABG HCO3 31 mmol/L (23-28); ABG PCO2 56 mmHg (41-51); ABG PH 7.36 (7.31-7.41); ABG PO2 68 mmHg (80-105)
[2018-03-26] MEDS: HEPARIN 25,000U/0.45% NS 250ML 1,500 UNIT in SODIUM CHLORIDE 0.9% 250ML 0 ML IV SCH (13:45)
[2018-03-26 16:20] VITALS: BP 122/69
--- NOTE | 2018-03-26 18:20 | Progress Note ---
DATE: March 26, 2018 SUBJECTIVE: The patient remains intubated and sedated. He has significant ventilator requirements still, and is spiking fever. OBJECTIVE VITAL SIGNS: Temperature 101.1 degrees, pulse 100, respiratory rate 19, blood pressure 108/65, oxygen saturation 91% on mechanical ventilation. GENERAL: Morbidly obese man, intubated and sedated. In no acute distress. LUNGS: Clear to auscultation on the right with decreased breath sounds on the left. CARDIOVASCULAR: Normal rate, regular rhythm. No murmur. Normal S1, S2. ABDOMEN: Soft, nontender. EXTREMITIES: 1+ pitting edema is present with compression wrappings noted bilaterally. CARDIAC MEDICATIONS: 1. Heparin drip. 2. Lasix 40 mg IV q.12 h. 3. Aspirin 81 mg p.o. daily. 4. Atorvastatin 20 mg p.o. nightly. LABS: WBC 11.62, hemoglobin 11.3, hematocrit 34.8, platelets 229,000, sodium 141, potassium 4.9, chloride 103, CO2 of 28, BUN 44, creatinine 1.71. Chest x-ray no significant interval change. TELEMETRY: Sinus tachycardia. IMPRESSION 1. Status post cardiac arrest, pulseless electrical activity. 2. Suspected pulmonary embolus, unable to be confirmed secondary to inability to CT patient. 3. Acute kidney injury, improving. 4. Multifocal pneumonia. 5. Yvnwq-jh-ffdknwv diastolic heart failure. 6. Acute respiratory failure requiring ventilatory support. 7. Suspect aspiration pneumonia. 8. Hypertension. 9. Diabetes mellitus. 10. Right lower extremity cellulitis. 11. Fever. RECOMMENDATIONS: The patient's cardiac arrest was suspected to be secondary to pulmonary embolism. However, the patient exceeds the weight limit for the CT scanner. Empiric treatment with heparin drip. The patient has not been able to achieve a therapeutic PTT. We will consult hematology. Acute kidney injury was likely secondary to the patient's cardiac arrest. Creatinine is improving. Agree with diuretics. The patient has had good urine output. Antibiotics per medicine given suspected aspiration pneumonia. Ventilator management per pulmonary. Cultures are without growth thus far. Job#: [id number]
[2018-03-26] MEDS: ACETAMINOPHEN 1000 MG/100 ML IV PRN (19:31)
[2018-03-26] MEDS: INSULIN DETEMIR 100 UNIT/ML PEN SQ SCH (20:14)
[2018-03-26] MEDS: ATORVASTATIN 20 MG TAB PO SCH (20:15)
[2018-03-27] MEDS: ACETYLCYSTEINE 20% INHAL SOLN 30 ML VIAL INH SCH ×5 (01:20→23:24)
[2018-03-27] MEDS: ALBUTEROL SULF 0.083% NEB SOLN 3 ML NEB NEB SCH ×5 (01:20→23:24)
[2018-03-27] MEDS: HEPARIN 25,000U/0.45% NS 250ML 1,500 UNIT in SODIUM CHLORIDE 0.9% 250ML 0 ML IV SCH (01:35)
[2018-03-27] MEDS: METRONIDAZOLE 500MG/NS 100ML 100 ML IV SCH ×4 (02:30→21:44)
[2018-03-27] MEDS: MIDAZOLAM HCL 25 MG in SODIUM CHLORIDE 0.9% 50ML 45 ML IV PRN ×7 (02:30→17:00)
[2018-03-27] MEDS: INSULIN LISPRO 100 UNIT/1 ML 3ML VIAL SQ SCH ×3 (05:02→18:00)
[2018-03-27] MEDS: PIPER-TAZ 3.375 GM 100 ML IV SCH ×2 (05:02→12:00)
[2018-03-27 06:35] LABS: BASOPHILS # (AUTO) 0.1 (0.0-0.1); BASOPHILS % 0.9 % (0.0-1.0); EOSINOPHILS # (AUTO) 0.4 (0.0-0.4); EOSINOPHILS % 3.4 % (0.0-6.0); HEMOGLOBIN 11.1 g/dL (14.0-18.0); LYMPHOCYTES # (AUTO) 1.2 (1.0-3.2); LYMPHOCYTES % 9.5 % (18.0-39.1); MEAN CORPUSCULAR HEMOGLOBIN 31.4 pg (28-32); MEAN CORPUSCULAR HGB CONC 31.7 g/dL (31-35); MEAN CORPUSCULAR VOLUME 99.2 fL (81-99); MONOCYTES # (AUTO) 1.3 (0.2-0.8); NEUTROPHILS # (AUTO) 8.7 (2.1-6.9); NEUTROPHILS % 66.7 % (38.7-80.0); PLATELET COUNT 238 x10e3/uL (140-360); RED BLOOD COUNT 3.53 x10e6/uL (4.3-5.7); RED CELL DISTRIBUTION WIDTH 14.3 % (11.7-14.4)
[2018-03-27 06:52] LABS: ANION GAP 16.9 mmol/L (8-16); CALCIUM 9.6 mg/dL (8.4-10.2); CREATININE, SERUM 2.03 mg/dL (0.72-1.25); POTASSIUM 4.9 mmol/L (3.5-5.1)
[2018-03-27 06:59] LABS: MAGNESIUM 1.8 MG/DL (1.3-2.1); PHOSPHORUS 5.9 MG/DL (2.3-4.7)
--- NOTE | 2018-03-27 07:32 | Diagnostic Imaging Report ---
EXAMINATION: Chest, CHEST SINGLE (PORTABLE) INDICATION: Chest pain COMPARISON: Portable chest 03/26/2018. FINDINGS: LINES: None * Endotracheal catheter with tip projecting over the expected region of the trachea, positioned 4 cm from the osmar. * Right peripherally inserted central venous catheter with tip projecting over the expected region of the right brachiocephalic vein. * Enteric feeding catheter with tip projecting over the expected region of the gastric fundus. Heart: Normal cardiac silhouette. Vascular: The pulmonary vasculature is within normal limits. Atherosclerotic calcifications of the aortic arch. Mediastinum: No mediastinal, hilar, or axillary mass or lymphadenopathy. Lungs: No parenchymal mass. Complete opacification of the left hemithorax. Pleura: Large left pleural effusion. No pneumothorax. Bones: No acute osseous abnormality. Degenerative changes of the thoracic spine. Soft tissues: Normal. Impression: Complete opacification of the left hemithorax. Signed by: Dr. Dev Rashid M.D. on 03/27/2018 7:28 AM
[2018-03-27] MEDS: NABUMETONE 750 MG PO SCH ×2 (09:00→17:00)
[2018-03-27] MEDS: GLUCOSAMINE SULFATE 500 MG PO SCH (09:00)
[2018-03-27] MEDS: PANTOPRAZOLE 40 MG 10ML VIAL IV SCH (09:30)
[2018-03-27] MEDS: CHOLECALCIFEROL 1,000 UNIT TAB PO SCH (09:30)
[2018-03-27] MEDS: METOCLOPRAMIDE HCL 10 MG/2ML VIAL IV SCH ×3 (09:30→21:00)
[2018-03-27] MEDS: FUROSEMIDE INJ 10 MG/ML 4 ML VIAL IV SCH ×2 (09:30→21:00)
[2018-03-27] MEDS: ASPIRIN 81 MG CHEW TAB PO SCH (09:30)
[2018-03-27] MEDS: MULTIVITAMINS/MINERALS TAB PO SCH (09:30)
[2018-03-27] MEDS: VANCOMYCIN 750MG/NS 150ML IVPB 150 ML IV SCH (10:30)
[2018-03-27 13:38] LABS: ABG HCO3 30 mmol/L (23-28); ABG PCO2 62 mmHg (41-51); ABG PO2 58 mmHg (80-105)
[2018-03-27] MEDS ORDERED: SODIUM CHLORIDE 0.9% 250ML 250 ML ONE (13:52)
[2018-03-27 13:57] LABS: CREATININE,URINE RANDOM 90.74 mg/dL (63-166); SODIUM,URINE 27 mmol/L; TOTAL PROTEIN, URINE 28.7 mg/dL (1-14)
--- NOTE | 2018-03-27 14:18 | Consultation ---
DATE OF CONSULTATION: March 27, 2018 REASON FOR CONSULTATION: Pneumonia and leukocytosis. Recommendations for antibiotics. HISTORY OF PRESENT ILLNESS: This patient is a 67-year-old white male who has history of being a morbidly obese patient with sleep apnea, diabetes mellitus and hypertension comes into the emergency room on March 21, 2018 here at [facility] for the patient not doing well. He was hypoglycemic. Apparently, the patient has history also of lymphedema and recurrent cellulitis. The patient has bilateral lower extremity edema, lymphedema and recurrent cellulitis. He has Unna boot. The patient comes in with nausea and not doing well. He apparently he stopped eating, but he continued his medications. He came to the emergency room. He was found to be hypoglycemic. Patient was admitted. This patient is a morbidly obese patient. His weight is more than 500 pounds. He is on CPAP. The patient comes in. He was intubated. He was diagnosed with pneumonia and started on IV antibiotics. His white count is elevated. So I was consulted today. When the patient first came here, his home medications were aspirin 81 mg daily. Atorvastatin 20 mg daily. Vitamin D. Ciprofloxacin 500 mg p.o. t.i.d. Clindamycin 300 mg p.o. t.i.d. Diltiazem 300 mg daily. Doxycin 2 mg p.o. b.i.d. Iron sulfate. Glucosamine. Glyburide/metformin 5 and 500 mg p.o. b.i.d. Multivitamin. . He was also on triamterene/hydrochlorothiazide 37.25 mg p.o. daily. PAST MEDICAL HISTORY: As above. Also obesity, sleep apnea on BiPAP. He had skin graft by Dr. Shah in 2017. Cholecystectomy. Appendectomy before. PAST SURGICAL HISTORY: As above. ALLERGIES: NKA. SOCIAL HISTORY: There is no smoking, drug abuse or alcohol abuse. The patient was admitted with hypoglycemic episode, , sleep apnea. The patient was seen by pulmonary critical care, Dr. Brown. The patient apparently had witnessed arrest with PEA. He was intubated. He had cardiac arrest, possible pulmonary embolism. The patient was admitted to ICU on March 23. He was seen by renal. He was seen by cardiology. I was asked to see him today. I have reviewed all of his records. PHYSICAL EXAMINATION: GENERAL: The patient currently is intubated, sedated. VITAL SIGNS: Stable. He is running fever. T max was 101, heart rate 100, respirations 19. HEENT: Normocephalic. NECK: Very hard to assess because of his obesity. He has oral intubation. CHEST: Distant breath sounds. COR: Distant S1, S2. ABDOMEN: Morbidly obese. IMPRESSION: 1. Status post cardiac arrest with pulseless electrical activity. 2. Possible pulmonary embolism, unable to confirm because he cannot fit the CAT scan. 3. Acute tubular necrosis over chronic kidney disease, probably. 4. Possibility of aspiration pneumonia. 5. Ymyqm-sf-ixwqqof diastolic congestive heart failure. 6. Respiratory failure. 7. Hypertension. 8. Diabetes mellitus. 9. Bilateral lower extremity venous stasis, dermatitis. 10. Bilateral lower extremity lymphedema. 11. Bilateral lower extremity recurrent cellulitis. 12. Obesity. 13. Sleep apnea. RECOMMENDATIONS: The patient is currently on vancomycin, Reglan, Lasix, Protonix, vitamin D, albuterol, metronidazole and Zosyn. Blood cultures are negative so far. Chest x-ray complete opacification in the left hemothorax, impression of pneumonia. Concerned about mucus plug. I would recommend to change antibiotic to cefepime and Flagyl and with the vancomycin to adjust for his kidney function. He may need a bronchoscopy. Will discuss with Dr. Brown. Will also follow vancomycin trough. Will follow with you. Job#: [id number]
[2018-03-27 14:24] LABS: BAND NEUTROPHILS % (MANUAL) 5 %; EOSINOPHILS % (MANUAL) 4 % (0-7); LYMPHOCYTES % (MANUAL) 11 % (19-48); MONOCYTES % (MANUAL) 10 % (3.4-9.0)
[2018-03-27 14:25] LABS: NEUTROPHILS % (MANUAL) 70 % (40-74); PLATELET ESTIMATE ADEQUATE; PLATELET MORPHOLOGY COMMENT NORMAL; RBC MORPHOLOGY COMMENT NORMAL
--- NOTE | 2018-03-27 15:09 | Progress Note ---
DATE: March 27, 2018 CARDIOLOGY PROGRESS NOTE SUBJECTIVE: Patient remains intubated and sedated. He continues to have significant ventilatory requirements with an FIO2 of 80% and a PEEP of 15 on mechanical ventilation. He became tachycardic this morning, but telemetry reveals sinus tachycardia with rates in the 120s. OBJECTIVE VITAL SIGNS: Temperature 97.2 degrees, pulse 121, respiratory rate 24, blood pressure 122/69, oxygen saturation 95% on mechanical ventilation. GENERAL: A morbidly obese man, intubated and sedated, in no acute distress. LUNGS: Clear to auscultation on the right with decreased breath sounds on the left. CARDIOVASCULAR: Tachycardic but regular. No murmur. Normal S1 and S2. ABDOMEN: Soft, nontender. EXTREMITIES: 1+ pitting edema present with compression wrappings noted bilaterally. CARDIAC MEDICATIONS 1. Furosemide 40 mg IV q.12 h. 2. Aspirin 81 mg p.o. daily. 3. Atorvastatin 20 mg p.o. nightly. 4. Heparin drip. LABS: WBC 13.05, hemoglobin 11.1, hematocrit 35, platelets 238. Sodium 144, potassium 4.9, chloride 103, CO2 29, BUN 56, creatinine 2.06. Chest x-ray: Complete opacification of the left hemithorax. Telemetry: Sinus tachycardia. IMPRESSION 1. Status post cardiac arrest pulseless electrical activity. 2. Suspected pulmonary embolus. Unable to be confirmed secondary to inability to CT patient. 3. Acute kidney injury. 4. Multifocal pneumonia. 5. Lkatn-ay-dcvmkmo diastolic heart failure. 6. Acute respiratory failure requiring ventilatory support. 7. Suspected aspiration pneumonia. 8. Sinus tachycardia. 9. Hypertension. 10. Diabetes mellitus. 11. Right lower extremity cellulitis. RECOMMENDATIONS: The patient's cardiac arrest was suspected to be secondary to pulmonary embolism. However, the patient exceeds the weight limit for the CT scanner. Empiric treatment with heparin drip. Obtain EKG. However, patient's sinus tachycardia is likely a physiologic response to his current illness. Would not start beta blockade unless heart rate increases further. Acute kidney injury was likely secondary to the patient's cardiac arrest. His creatinine is slightly worse today. Defer to Nephrology. Antibiotics per Infectious Disease. Ventilator management per Pulmonary. Thank you for this consult. We will continue to follow. Job#: [id number] EV
[2018-03-27 15:21] LABS: EOSINOPHIL SMEAR,URINE NONE SEEN (NONE SEEN)
[2018-03-27] MEDS: CEFEPIME HCL 1 GM VIAL IV SCH (16:00)
[2018-03-27] MEDS: ACETAMINOPHEN 1000 MG/100 ML IV PRN (17:29)
[2018-03-27 20:00] VITALS: BP 89/56
[2018-03-27] MEDS: ATORVASTATIN 20 MG TAB PO SCH (21:00)
[2018-03-27] MEDS: INSULIN DETEMIR 100 UNIT/ML PEN SQ SCH (21:30)
[2018-03-28] VITALS (25 sets, daily range): BP systolic 90–121; BP diastolic 46–67
[2018-03-28] MEDS: INSULIN LISPRO 100 UNIT/1 ML 3ML VIAL SQ SCH ×4 (01:22→18:00)
[2018-03-28] MEDS: METRONIDAZOLE 500MG/NS 100ML 100 ML IV SCH ×3 (06:00→21:43)
[2018-03-28 06:35] LABS: BASOPHILS # (AUTO) 0.1 (0.0-0.1); BASOPHILS % 0.8 % (0.0-1.0); EOSINOPHILS # (AUTO) 0.5 (0.0-0.4); EOSINOPHILS % 3.3 % (0.0-6.0); HEMATOCRIT 34.5 % (38.2-49.6); HEMOGLOBIN 10.6 g/dL (14.0-18.0); LYMPHOCYTES # (AUTO) 1.2 (1.0-3.2); LYMPHOCYTES % 7.5 % (18.0-39.1); MEAN CORPUSCULAR HGB CONC 30.7 g/dL (31-35); MEAN CORPUSCULAR VOLUME 100.9 fL (81-99); MONOCYTES # (AUTO) 1.5 (0.2-0.8); MONOCYTES % 8.8 % (4.4-11.3); NEUTROPHILS # (AUTO) 11.6 (2.1-6.9); NEUTROPHILS % 70.3 % (38.7-80.0); PLATELET COUNT 253 x10e3/uL (140-360); RED BLOOD COUNT 3.42 x10e6/uL (4.3-5.7); RED CELL DISTRIBUTION WIDTH 14.4 % (11.7-14.4)
[2018-03-28 06:52] LABS: ANION GAP 15.7 mmol/L (8-16); CALCIUM 9.6 mg/dL (8.4-10.2); CREATININE, SERUM 2.47 mg/dL (0.72-1.25); MAGNESIUM 1.9 MG/DL (1.3-2.1); POTASSIUM 4.7 mmol/L (3.5-5.1)
[2018-03-28] MEDS: ACETYLCYSTEINE 20% INHAL SOLN 30 ML VIAL INH SCH ×3 (08:01→19:20)
[2018-03-28] MEDS: ALBUTEROL SULF 0.083% NEB SOLN 3 ML NEB NEB SCH ×3 (08:02→19:20)
[2018-03-28] MEDS: MIDAZOLAM HCL 25 MG in SODIUM CHLORIDE 0.9% 50ML 45 ML IV PRN ×6 (09:00→22:29)
[2018-03-28] MEDS: GLUCOSAMINE SULFATE 500 MG PO SCH (09:00)
[2018-03-28] MEDS: NABUMETONE 750 MG PO SCH ×2 (09:00→17:00)
[2018-03-28] MEDS: FUROSEMIDE INJ 10 MG/ML 4 ML VIAL IV SCH (09:03)
[2018-03-28] MEDS: PANTOPRAZOLE 40 MG 10ML VIAL IV SCH (09:33)
[2018-03-28] MEDS: VANCOMYCIN 1GM/NS 250 ML 250 ML IV SCH (09:33)
[2018-03-28] MEDS: ASPIRIN 81 MG CHEW TAB PO SCH (09:33)
[2018-03-28] MEDS: FUROSEMIDE INJ 100 MG in SODIUM CHLORIDE 0.9% 100 ML 90 ML IV SCH ×2 (09:33→19:30)
[2018-03-28] MEDS: METOCLOPRAMIDE HCL 10 MG/2ML VIAL IV SCH ×3 (09:33→21:43)
[2018-03-28] MEDS: HEPARIN 25,000U/0.45% NS 250ML 1,500 UNIT in SODIUM CHLORIDE 0.9% 250ML 0 ML IV SCH (09:33)
[2018-03-28] MEDS: CEFEPIME HCL 1 GM VIAL IV SCH (09:33)
[2018-03-28] MEDS: CHOLECALCIFEROL 1,000 UNIT TAB PO SCH (09:34)
[2018-03-28] MEDS: MULTIVITAMINS/MINERALS TAB PO SCH (09:34)
--- NOTE | 2018-03-28 11:02 | Diagnostic Imaging Report ---
EXAMINATION: Chest, CHEST SINGLE (PORTABLE) INDICATION: Chest pain COMPARISON: Chest portable 03/27/2018 FINDINGS: Severely limited examination due to technique. LINES: Endotracheal catheter is present with the tip projecting over the expected region of the trachea, positioned 5 cm from the osmar. Enteric feeding catheter with the tip extending below the inferior margin of the examination, likely within the gastric body. Heart: Normal cardiac silhouette. Vascular: The pulmonary vasculature is within normal limits. Atherosclerotic calcifications of the aortic arch. Mediastinum: No mediastinal, hilar, or axillary mass or lymphadenopathy. Lungs: Diffuse bilateral airspace opacities. Pleura: No pleural effusion. No pneumothorax. Bones: No acute osseous abnormality. Degenerative changes of the thoracic spine. Soft tissues: Normal. Impression: Diffuse bilateral airspace opacities may represent edema, pneumonia, or hemorrhage. Severely limited evaluation. Signed by: Dr. Dev Rashid M.D. on 03/28/2018 10:58 AM
[2018-03-28] MEDS: HYDROMORPHONE 100 ML IV PRN ×2 (11:14→21:20)
[2018-03-28 12:05] LABS: BAND NEUTROPHILS % (MANUAL) 7 %; EOSINOPHILS % (MANUAL) 4 % (0-7); LYMPHOCYTES % (MANUAL) 6 % (19-48); MONOCYTES % (MANUAL) 9 % (3.4-9.0); NEUTROPHILS % (MANUAL) 74 % (40-74); PLATELET ESTIMATE ADEQUATE; PLATELET MORPHOLOGY COMMENT NORMAL; RBC MORPHOLOGY COMMENT NORMAL
--- NOTE | 2018-03-28 16:11 | Progress Note ---
DATE: March 28, 2018 CARDIOLOGY PROGRESS NOTE SUBJECTIVE: The patient remains intubated and sedated. He is still requiring significant ventilatory support with an FIO2 of 95% and a PEEP of 15. OBJECTIVE VITAL SIGNS: Temperature 99.3 degrees, pulse 106, respiratory rate 24, oxygen saturation 98% on mechanical ventilation. GENERAL: A morbidly obese man, intubated and sedated, in no acute distress. LUNGS: Clear to auscultation on the right with decreased breath sounds on the left. CARDIOVASCULAR: Tachycardic but regular. No murmur. Normal S1 and S2. ABDOMEN: Soft, nontender. EXTREMITIES: 1+ pitting edema present. Erythematous rash is present. CARDIAC MEDICATIONS 1. Furosemide 40 mg an hour. 2. Aspirin 81 mg p.o. daily. 3. Atorvastatin 20 mg p.o. nightly. LABS: WBC 16.49, hemoglobin 10.6, hematocrit 34.5, platelets 253,000, sodium 144, potassium 4.7, chloride 105, CO2 of 28, BUN 55, creatinine 2.47. TELEMETRY: Sinus tachycardia. Chest x-ray: Diffuse bilateral air space opacity may represent edema, pneumonia , or hemorrhage. IMPRESSION 1. Status post cardiac arrest, pulseless electrical activity. 2. Suspected pulmonary embolus. Unable to be confirmed secondary to inability to CT patient. 3. Acute kidney injury. 4. Multifocal pneumonia. 5. Aastq-be-dlrtmdr diastolic heart failure. 6. Acute respiratory failure requiring ventilatory support. 7. Suspected aspiration pneumonia. 8. Sinus tachycardia. 9. Hypertension. 10. Diabetes mellitus. 11. Right lower extremity cellulitis. RECOMMENDATIONS: The patient's cardiac arrest was suspected to be secondary to pulmonary embolism. However, the patient exceeds weight limit for CT scan. Empiric treatment with heparin drip. The patient's tachycardia is likely a physiologic response to his current illness. Continue monitoring on telemetry. Volume management per nephrology given acute kidney injury. Antibiotics per infectious disease. Ventilator management per pulmonary. Thank you for this consult. We will continue to follow. Job#: [id number] GH MTDEvelyn
--- NOTE | 2018-03-28 18:34 | Consultation ---
DATE OF CONSULTATION: NO DICTATION. 0 seconds. Job#: [id number] GH
[2018-03-28] MEDS ORDERED: HEPARIN 25,000U/0.45% NS 250ML 250 ML ONE (18:46)
[2018-03-28] MEDS: INSULIN DETEMIR 100 UNIT/ML PEN SQ SCH (21:43)
[2018-03-28] MEDS: ATORVASTATIN 20 MG TAB PO SCH (21:43)
[2018-03-29] VITALS (84 sets, daily range): BP systolic 74–109; BP diastolic 42–64
[2018-03-29] MEDS: ACETYLCYSTEINE 20% INHAL SOLN 30 ML VIAL INH SCH ×4 (01:10→19:25)
[2018-03-29] MEDS: ALBUTEROL SULF 0.083% NEB SOLN 3 ML NEB NEB SCH ×4 (01:10→19:25)
[2018-03-29] MEDS: MIDAZOLAM HCL 25 MG in SODIUM CHLORIDE 0.9% 50ML 45 ML IV PRN ×3 (02:33→21:30)
[2018-03-29] MEDS: HYDROMORPHONE 100 ML IV PRN ×2 (04:00→22:11)
[2018-03-29] MEDS: HEPARIN 25,000U/0.45% NS 250ML 1,500 UNIT in SODIUM CHLORIDE 0.9% 250ML 0 ML IV SCH (04:00)
[2018-03-29] MEDS: FUROSEMIDE INJ 100 MG in SODIUM CHLORIDE 0.9% 100 ML 90 ML IV SCH ×2 (05:25→18:00)
[2018-03-29] MEDS: METRONIDAZOLE 500MG/NS 100ML 100 ML IV SCH ×3 (05:25→21:00)
[2018-03-29] MEDS: INSULIN LISPRO 100 UNIT/1 ML 3ML VIAL SQ SCH ×4 (05:47→18:00)
--- NOTE | 2018-03-29 06:33 | Diagnostic Imaging Report ---
EXAMINATION: CHEST SINGLE (PORTABLE) INDICATION: Pneumonia. COMPARISON: 03/28/2018 FINDINGS: TUBES and LINES: Endotracheal and nasogastric tubes are in good position. LUNGS: Interval improvement in bilateral opacities with persistent left lower lobe opacity. There are bibasilar atelectasis. There is mild prominence of the central pulmonary vasculature, consistent with pulmonary venous congestion. Persistent interlobular septi thickening. PLEURA: Left pleural effusion is suspected. HEART AND MEDIASTINUM: Cardiac size is moderately enlarged. There are atherosclerotic calcifications within the aorta. BONES AND SOFT TISSUES: No acute osseous lesion. Soft tissues are unremarkable. UPPER ABDOMEN: No free air under the diaphragm. IMPRESSION: 1. Interval improvement in pulmonary edema and bilateral atelectasis. 2. Tubes and lines are in good position. 3. Left lower lobe airspace opacity compatible with atelectasis versus pneumonia Signed by: Dr. Trace Panchal M.D. on 03/29/2018 6:30 AM
[2018-03-29 06:38] LABS: BASOPHILS # (AUTO) 0.1 (0.0-0.1); BASOPHILS % 0.6 % (0.0-1.0); EOSINOPHILS # (AUTO) 0.4 (0.0-0.4); EOSINOPHILS % 2.9 % (0.0-6.0); HEMATOCRIT 32.9 % (38.2-49.6); HEMOGLOBIN 10.3 g/dL (14.0-18.0); LYMPHOCYTES # (AUTO) 1.2 (1.0-3.2); LYMPHOCYTES % 7.8 % (18.0-39.1); MEAN CORPUSCULAR HEMOGLOBIN 31.6 pg (28-32); MEAN CORPUSCULAR HGB CONC 31.3 g/dL (31-35); MEAN CORPUSCULAR VOLUME 100.9 fL (81-99); MONOCYTES # (AUTO) 1.2 (0.2-0.8); MONOCYTES % 7.8 % (4.4-11.3); NEUTROPHILS % 72.5 % (38.7-80.0); PLATELET COUNT 220 x10e3/uL (140-360); RED BLOOD COUNT 3.26 x10e6/uL (4.3-5.7); RED CELL DISTRIBUTION WIDTH 14.2 % (11.7-14.4)
[2018-03-29 07:06] LABS: ANION GAP 13.8 mmol/L (8-16); CALCIUM 9.2 mg/dL (8.4-10.2); CREATININE, SERUM 2.68 mg/dL (0.72-1.25); MAGNESIUM 1.8 MG/DL (1.3-2.1); POTASSIUM 4.8 mmol/L (3.5-5.1)
--- NOTE | 2018-03-29 08:43 | Consultation ---
DATE OF CONSULTATION: March 29, 2018 HOSPITAL CONSULTATION HISTORY OF PRESENT ILLNESS: I was kindly asked to see this 67-year-old man for evaluation of possible tracheostomy tube placement. The patient presented with hyperglycemia and subsequently experienced a cardiac event, which clinically was related to pulmonary embolus and was intubated on March 23, 2018. Since intubation, he has required ventilator support. He is currently at 100% oxygen and a PEEP of 12. His blood pressure requires intermittent Levophed drip for maintaining adequate blood pressure. He has been empirically started on anticoagulants. His history of present illness, past medical history and past surgical history were reviewed in detail in the chart. PHYSICAL EXAMINATION GENERAL: The patient is morbidly obese, sedated and on the ventilator. NECK: There is no abnormal neck anatomy noted. ASSESSMENT 1. Respiratory failure. 2. Currently requiring high levels of oxygen and intermittent blood pressure support, as well as anticoagulants. PLAN: Will continue to follow with you and consider tracheostomy based on clinical course. Job#: [id number] MD
[2018-03-29] MEDS: VANCOMYCIN 1GM/NS 250 ML 250 ML IV SCH (09:00)
[2018-03-29] MEDS: MULTIVITAMINS/MINERALS TAB PO SCH (09:00)
[2018-03-29] MEDS: ASPIRIN 81 MG CHEW TAB PO SCH (09:00)
[2018-03-29] MEDS: GLUCOSAMINE SULFATE 500 MG PO SCH (09:00)
[2018-03-29] MEDS: CHOLECALCIFEROL 1,000 UNIT TAB PO SCH (09:00)
[2018-03-29] MEDS: NABUMETONE 750 MG PO SCH ×2 (09:00→16:13)
[2018-03-29] MEDS: METOCLOPRAMIDE HCL 10 MG/2ML VIAL IV SCH ×3 (09:00→20:57)
[2018-03-29] MEDS: CEFEPIME HCL 1 GM VIAL IV SCH (09:00)
[2018-03-29] MEDS: PANTOPRAZOLE 40 MG 10ML VIAL IV SCH (09:00)
[2018-03-29 10:48] LABS: ANISOCYTOSIS SLIGHT; BAND NEUTROPHILS % (MANUAL) 7 %; EOSINOPHILS % (MANUAL) 4 % (0-7); HYPOCHROMASIA SLIGHT; LYMPHOCYTES % (MANUAL) 6 % (19-48); METAMYELOCYTES % (MANUAL) 2 % (0-0); MONOCYTES % (MANUAL) 8 % (3.4-9.0); NEUTROPHILS % (MANUAL) 73 % (40-74); PLATELET ESTIMATE ADEQUATE; POIKILOCYTOSIS SLIGHT
[2018-03-29 10:49] LABS: PLATELET MORPHOLOGY COMMENT FEW LARGE; RBC MORPHOLOGY COMMENT NORMAL
[2018-03-29] MEDS ORDERED: FUROSEMIDE INJ 100 MG in SODIUM CHLORIDE 0.9% 100 ML 90 ML IV SCH (11:00)
--- NOTE | 2018-03-29 11:03 | Progress Note ---
DATE: March 29, 2018 CARDIOLOGY PROGRESS NOTE SUBJECTIVE: The patient remains intubated and sedated. He is on Levophed 1 mcg per minute for blood pressure support. OBJECTIVE VITALS: Temperature 98.8 degrees, pulse 85, respiratory rate 22, blood pressure 100/57, oxygen saturation 92% on mechanical ventilation. GENERAL: Morbidly obese gentleman in no acute distress. Remains intubated and sedated. LUNGS: Clear to auscultation on the right with decreased breath sounds on the left. CARDIOVASCULAR: Normal rate. Regular rhythm. No murmur. Normal S1 and S2. ABDOMEN: Soft and nontender. EXTREMITIES: One plus pitting edema. CARDIAC MEDICATIONS 1. Atorvastatin 20 mg p.o. at bedtime. 2. Aspirin 81 mg p.o. daily. LABS: WBC 15.16, hemoglobin 10.3, hematocrit 32.9, and platelets 220,000. Sodium 140, potassium 4.8, chloride 104, CO2 27, BUN 90, creatinine 2.68. Telemetry is normal sinus rhythm with PVCs. Chest x-ray with interval improvement in pulmonary edema and bilateral atelectasis. Left lower lobe airspace opacity compatible with atelectasis versus pneumonia. IMPRESSION 1. Status post pulseless electrical activity arrest. 2. Suspected pulmonary embolus: Unable to be confirmed secondary to inability to computerized tomography the patient. 3. Acute kidney injury. 4. Multifocal pneumonia. 5. Cmjtx-nu-pekgtye diastolic heart failure. 6. Acute respiratory failure requiring ventilatory support. 7. Suspected aspiration pneumonia. 8. Sinus tachycardia, resolved. 9. Hypertension, currently hypotensive. 10. Diabetes mellitus. 11. Right lower extremity cellulitis. RECOMMENDATIONS: The patient's cardiac arrest was suspected to be secondary to pulmonary embolism. However, the patient exceeds weight limit for CT scan, and this cannot be confirmed. The patient was started on heparin drip empirically. Due to inability to reach target PTT, Hematology has switched the patient to Arixtra. Continue monitoring the patient on telemetry. Volume management per nephrology given acute kidney injury. May possibly need initiation of dialysis. Antibiotics per infectious disease. Ventilator management per pulmonary. He continues to require significant ventilatory support. ENT has been consulted for tracheostomy. Thank you for this consult. We will continue to follow. Job#: [id number] TATUM REYNOLDS
[2018-03-29] MEDS ORDERED: ALBUMIN 5% 250ML IV SCH (12:00)
[2018-03-29] MEDS ORDERED: METOLAZONE 5 MG TAB PO ONE (12:30)
[2018-03-29] MEDS: ALBUMIN 5% 250 ML IV SCH ×2 (13:35→18:00)
[2018-03-29] MEDS ORDERED: HEPARIN SOD (PORCINE) 5,000 UNIT/ML VIAL SC SCH (14:00)
[2018-03-29] MEDS ORDERED: HEPARIN 25,000 UNIT/D5W 250ML 250 ML IV SCH (18:45)
[2018-03-29] MEDS ORDERED: ROCURONIUM BROMIDE 1 ML ONE (18:53)
[2018-03-29] MEDS ORDERED: ROCURONIUM BROMIDE 10 MG/ML 5ML VIAL IV ONE (19:00)
[2018-03-29 19:05] LABS: ABG HCO3 27 mmol/L (23-28); ABG PCO2 57 mmHg (41-51); ABG PH 7.28 (7.31-7.41); ABG PO2 59 mmHg (80-105)
[2018-03-29] MEDS ORDERED: BISACODYL 10 MG SUPP PR ONE (19:30)
[2018-03-29] MEDS ORDERED: CISATRACURIUM BESYLATE 100 MG in SODIUM CHLORIDE 0.9% 100 ML 100 ML IV PRN (20:15)
[2018-03-29] MEDS: FONDAPARINUX SODIUM 10 MG/0.8 ML SYR SQ SCH (20:56)
[2018-03-29] MEDS: ATORVASTATIN 20 MG TAB PO SCH (20:58)
[2018-03-29] MEDS: INSULIN DETEMIR 100 UNIT/ML PEN SQ SCH (20:58)
[2018-03-30] VITALS (87 sets, daily range): BP systolic 49–150; BP diastolic 44–273
[2018-03-30] MEDS ORDERED: ACETAMINOPHEN 1000 MG/100 ML IV PRN (01:00)
[2018-03-30] MEDS: FUROSEMIDE INJ 100 MG in SODIUM CHLORIDE 0.9% 100 ML 90 ML IV SCH ×3 (01:01→12:00)
[2018-03-30] MEDS: ALBUMIN 5% 250 ML IV SCH ×4 (01:02→18:15)
[2018-03-30] MEDS: ACETYLCYSTEINE 20% INHAL SOLN 30 ML VIAL INH SCH ×4 (01:10→18:46)
[2018-03-30] MEDS: ALBUTEROL SULF 0.083% NEB SOLN 3 ML NEB NEB SCH ×4 (01:10→18:46)
[2018-03-30] MEDS ORDERED: NOREPINEPHRINE 8 MG/D5W 250 ML 250 ML ONE (04:15)
[2018-03-30] MEDS ORDERED: VASOPRESSIN INJ 20 UNIT/ML VIAL ONE (05:27)
--- NOTE | 2018-03-30 05:49 | Diagnostic Imaging Report ---
EXAM: CHEST SINGLE (PORTABLE), AP 1 view INDICATION: Intubated COMPARISON: AP view of the chest March 27, 2018 FINDINGS: LINES/TUBES: Endotracheal tube terminates 6 cm above the osmar. Nasal/orogastric tube tip is not well-visualized on this exam. Stable right approach PICC. LUNGS: Stable interstitial and alveolar opacities bilaterally and left retrocardiac opacification. PLEURA: No effusions or pneumothorax. HEART AND MEDIASTINUM: Stable enlargement. BONES AND SOFT TISSUES: No acute findings. IMPRESSION: No significant interval change. Signed by: Dr. Akosua Blunt M.D. on 03/30/2018 5:46 AM
[2018-03-30] MEDS: METRONIDAZOLE 500MG/NS 100ML 100 ML IV SCH ×3 (05:58→22:02)
[2018-03-30] MEDS: NOREPINEPHRINE INJ 4MG/4ML 8 MG in DEXTROSE 5% 250ML 250 ML IV PRN ×2 (06:00→22:57)
[2018-03-30] MEDS: VASOPRESSIN 100 UNIT in DEXTROSE 5% 100ML 100 ML IV PRN (06:20)
[2018-03-30] MEDS ORDERED: SODIUM BICARBONATE 8.4% INJ 50 ML SYR IV STA (06:31)
[2018-03-30] MEDS ORDERED: SODIUM BICARBONATE 8.4% SYRING 100 ML ONE (06:36)
[2018-03-30 06:47] LABS: ABG HCO3 21 mmol/L (23-28); ABG PCO2 68 mmHg (41-51); ABG PH 7.09 (7.31-7.41); ABG PO2 79 mmHg (80-105)
[2018-03-30] MEDS: INSULIN LISPRO 100 UNIT/1 ML 3ML VIAL SQ SCH ×4 (07:22→18:00)
[2018-03-30 07:54] LABS: BASOPHILS # (AUTO) 0.2 (0.0-0.1); BASOPHILS % 1.1 % (0.0-1.0); EOSINOPHILS # (AUTO) 0.1 (0.0-0.4); EOSINOPHILS % 0.4 % (0.0-6.0); HEMATOCRIT 36.5 % (38.2-49.6); LYMPHOCYTES # (AUTO) 1.1 (1.0-3.2); LYMPHOCYTES % 5.1 % (18.0-39.1); MEAN CORPUSCULAR HEMOGLOBIN 31.8 pg (28-32); MEAN CORPUSCULAR HGB CONC 31.2 g/dL (31-35); MONOCYTES # (AUTO) 1.8 (0.2-0.8); MONOCYTES % 8.5 % (4.4-11.3); NEUTROPHILS # (AUTO) 15.4 (2.1-6.9); NEUTROPHILS % 74.7 % (38.7-80.0); PLATELET COUNT 268 x10e3/uL (140-360); RED BLOOD COUNT 3.58 x10e6/uL (4.3-5.7); RED CELL DISTRIBUTION WIDTH 14.6 % (11.7-14.4)
[2018-03-30 07:56] LABS: HEMOGLOBIN 11.4 g/dL (14.0-18.0)
[2018-03-30 08:09] LABS: INR 1.48; PROTHROMBIN TIME 16.8 seconds (11.9-14.5)
[2018-03-30 08:16] LABS: ANION GAP 19.6 mmol/L (8-16); CALCIUM 9.2 mg/dL (8.4-10.2); CREATININE, SERUM 3.89 mg/dL (0.72-1.25); MAGNESIUM 2.2 MG/DL (1.3-2.1); PHOSPHORUS 9.1 MG/DL (2.3-4.7); POTASSIUM 5.6 mmol/L (3.5-5.1)
[2018-03-30] MEDS: METOCLOPRAMIDE HCL 10 MG/2ML VIAL IV SCH ×3 (09:00→22:10)
[2018-03-30] MEDS: ASPIRIN 81 MG CHEW TAB PO SCH (09:00)
[2018-03-30] MEDS: GLUCOSAMINE SULFATE 500 MG PO SCH (09:00)
[2018-03-30] MEDS: PANTOPRAZOLE 40 MG 10ML VIAL IV SCH (09:00)
[2018-03-30] MEDS: MULTIVITAMINS/MINERALS TAB PO SCH (09:00)
[2018-03-30] MEDS: NABUMETONE 750 MG PO SCH ×2 (09:00→17:00)
[2018-03-30] MEDS: CHOLECALCIFEROL 1,000 UNIT TAB PO SCH (09:00)
[2018-03-30] MEDS: CEFEPIME HCL 1 GM VIAL IV SCH (09:00)
[2018-03-30] MEDS: VANCOMYCIN 1GM/NS 250 ML 250 ML IV SCH (09:00)
[2018-03-30] MEDS ORDERED: SODIUM CHLORIDE 0.9% IV PRN (09:30)
[2018-03-30] MEDS ORDERED: CISATRACURIUM BESYLATE IV PRN (09:30)
[2018-03-30] MEDS ORDERED: SODIUM CHLORIDE 0.9% 1000ML 2,000 ML ONE (09:46)
[2018-03-30 09:58] LABS: EOSINOPHILS % (MANUAL) 1 % (0-7); LYMPHOCYTES % (MANUAL) 7 % (19-48); METAMYELOCYTES % (MANUAL) 3 % (0-0); MONOCYTES % (MANUAL) 2 % (3.4-9.0); MYELOCYTES % (MANUAL) 1 % (0-0); NEUTROPHILS % (MANUAL) 81 % (40-74); PLATELET ESTIMATE ADEQUATE; PLATELET MORPHOLOGY COMMENT NORMAL; POIKILOCYTOSIS SLIGHT; RBC MORPHOLOGY COMMENT NORMAL
[2018-03-30 09:59] LABS: ANISOCYTOSIS SLIG
[2018-03-30] MEDS: MICAFUNGIN SODIUM 100 ML IV SCH (10:00)
--- NOTE | 2018-03-30 10:29 | Diagnostic Imaging Report ---
PROCEDURE:CHEST SINGLE (PORTABLE) TECHNIQUE:Portable AP chest INDICATION:Endotracheal tube reposition COMPARISON:Patients [facility], , CHEST SINGLE (PORTABLE), 03/30/2018, 5:06. FINDINGS: See conclusion. CONCLUSION: 1. Endotracheal tube tip about 8 cm from the osmar. 2. Enteric tube tip crossing the diaphragm. 3. Cardiomegaly with pulmonary edema, unchanged from 5:06 AM. Dictated by: Amadeo Maciel M.D. on 03/30/2018 at 10:31 Electronically approved by: Amadeo Maciel M.D. on 03/30/2018 at 10:31
[2018-03-30 11:28] LABS: ABG HCO3 23 mmol/L (23-28); ABG PCO2 68 mmHg (41-51); ABG PH 7.14 (7.31-7.41); ABG PO2 69 mmHg (80-105)
--- NOTE | 2018-03-30 11:38 | Progress Note ---
DATE: March 30, 2018 CARDIOLOGY PROGRESS NOTE SUBJECTIVE: The patient spiked a fever to 102.1 degrees overnight. In addition, the patient had rapid response called for episode of hypoxia, hypotension and bradycardia. Cultures were drawn. The patient is now on Levophed 30 mcg per minute as well as vasopressin 0.01 units per minute. He had exchange of his endotracheal tube this morning due to air leaks in the circuit. He is currently intubated, sedated and paralyzed. OBJECTIVE VITALS: Temperature 99.6 degrees, pulse 112, respiratory rate 22, blood pressure 84/71, oxygen saturation 99% on mechanical ventilation. GENERAL: Morbidly obese man in no acute distress. Intubated, sedated and paralyzed. LUNGS: Clear to auscultation bilaterally. CARDIOVASCULAR: Normal rate. Regular rhythm. No murmur. Normal S1 and S2. ABDOMEN: Soft and nontender. EXTREMITIES: There is 1+ pitting edema. CARDIAC MEDICATIONS 1. Levophed 30 mcg per minute. 2. Lasix 10 mg an hour. 3. Vasopressin 0.01 units per minute. 4. Atorvastatin 20 mg p.o. at bedtime. 5. Fondaparinux 10 mg subcutaneous q.24 h. LABS: WBC 20.64, hemoglobin 11.4, hematocrit 36.5, platelets 268. Sodium 141, potassium 5.6, chloride 105, CO2 22, BUN 112, creatinine 3.89. ABGs: pH 7.09, pCO2 68, pO2 79, oxygen saturation 89%. INR 1.48. Lactate 16.1. CHEST X-RAY: Endotracheal tube about 8 cm from the osmar. Entire tube tip across the diaphragm. Cardiomegaly with pulmonary edema unchanged from 5:06 a.m. TELEMETRY: Normal sinus rhythm. IMPRESSION 1. Status post pulseless electrical activity arrest. 2. Septic shock requiring vasopressor support, suspected to be infectious etiology. 3. Suspected pulmonary embolus, unable to be confirmed secondary to inability to CT the patient. 4. Acute kidney injury. 5. Multifocal pneumonia. 6. Suspected aspiration pneumonia. 7. Sdehm-lr-awkhomi diastolic heart failure. 8. Acute respiratory failure requiring ventilatory support. 9. Sinus tachycardia, resolved. 10. Hypertension, currently hypotensive. 11. Diabetes mellitus. 12. Right lower extremity cellulitis. RECOMMENDATIONS: Anticoagulation per hematology. Antibiotics per infectious disease. Monitor the patient on telemetry closely. Volume management per nephrology given acute kidney injury. The patient may need initiation of dialysis. In the meantime, fluid and pressor support given his presumed septic shock. He continues to have significant oxygen requirement. Ventilator management per pulmonary. His prognosis is guarded. Thank you for this consult. We will continue to follow. Job#: [id number]
[2018-03-30] MEDS ORDERED: SOD POLYSTYRENE SULFONATE SUSP 15 GM/60 ML BTL PO NR (12:00)
[2018-03-30] MEDS: VANCOMYCIN 250MG/5ML ORAL SOLN PO SCH ×2 (12:00→17:36)
--- NOTE | 2018-03-30 14:14 | Diagnostic Imaging Report ---
PROCEDURE:CHEST XRAY LINE PLACEMENT TECHNIQUE:Portable AP chest INDICATION:Line placement COMPARISON:Patients [facility], DX, CHEST SINGLE (PORTABLE), 03/30/2018, 9:56. FINDINGS: See conclusion. CONCLUSION: Right internal jugular central venous catheter with tip in the SVC. Right internal jugular non-tunneled dialysis catheter with tip in the SVC. Endotracheal tube tip about 8 cm from the osmar. Unchanged enteric tube. Progressive pulmonary edema and cardiomegaly relative to 9:56 AM. Dictated by: Amadeo Maciel M.D. on 03/30/2018 at 14:15 Electronically approved by: Amadeo Maciel M.D. on 03/30/2018 at 14:15
--- NOTE | 2018-03-30 14:24 | Diagnostic Imaging Report ---
Non-tunneled Dialysis Catheter Placement and central venous catheter placement 03/30/2018 Pre-Procedure Diagnosis: Acute renal insufficiency; multiorgan failure Post-procedure Diagnosis:Acute renal insufficiency; multiorgan failure Soubrette: Timur aMciel Chief Telephone Operator: None Sedation: None. Heart rate and oxygen saturation were monitored in real-time. Blood pressure was measured in 5 minute increments. 1% lidocaine was used for local anesthesia. Estimate blood loss: <5 mL Blood administered: None Complications: None Implants/Grafts: 13 Irish 15 cm 3 lumen temporary dialysis catheter (Trialysis); 16 cm 7-Irish 3 lumen CVC Specimen: None Procedure: Informed consent was obtained and the patient positioned supine in the ICU. A timeout was performed, followed by preliminary ultrasound of the right internal jugular vein (see findings below). The right neck and chest were prepped and draped in standard fashion. Using real-time ultrasound guidance a 18 gauge vascular needle was used to access the right internal jugular vein. An image was stored in the electronic medical record. A wire was advanced and the needle exchanged for a non-tunneled dialysis catheter using standard Salinger technique. Attention was turned to the central venous catheter. Using real-time ultrasound guidance a 18 gauge vascular needle was used to access the right internal jugular vein. An image was stored in the electronic medical record. A wire was advanced while monitoring the patient's cardiac rhythm and the needle exchanged for a non-tunneled central venous catheter using standard Salinger technique. At the end of the procedure the catheters were flushed, secured to the skin and a sterile dressing applied. The patient tolerated the procedure well and without immediate complication. Findings: Patent right internal jugular vein as demonstrated by normal ultrasound compressibility. Impression: 1. Successful placement of a non-tunneled right internal jugular vein dialysis catheter using ultrasound guidance. 2. Successful placement of a non-tunneled right internal jugular central venous catheter using ultrasound guidance. This report was generated with voice-recognition technology. Errors in gravure printing machinist can occur. Please interpret accordingly and contact a radiologist if there are any questions regarding the report. Signed by: Dr. Amadeo Maciel M.D. on 03/30/2018 2:20 PM
--- NOTE | 2018-03-30 14:24 | Diagnostic Imaging Report ---
Non-tunneled Dialysis Catheter Placement and central venous catheter placement 03/30/2018 Pre-Procedure Diagnosis: Acute renal insufficiency; multiorgan failure Post-procedure Diagnosis:Acute renal insufficiency; multiorgan failure Criminalist: Timur Maciel Field Talent Qualification Specialist: None Sedation: None. Heart rate and oxygen saturation were monitored in real-time. Blood pressure was measured in 5 minute increments. 1% lidocaine was used for local anesthesia. Estimate blood loss: <5 mL Blood administered: None Complications: None Implants/Grafts: 13 Slovak 15 cm 3 lumen temporary dialysis catheter (Trialysis); 16 cm 7-Slovak 3 lumen CVC Specimen: None Procedure: Informed consent was obtained and the patient positioned supine in the ICU. A timeout was performed, followed by preliminary ultrasound of the right internal jugular vein (see findings below). The right neck and chest were prepped and draped in standard fashion. Using real-time ultrasound guidance a 18 gauge vascular needle was used to access the right internal jugular vein. An image was stored in the electronic medical record. A wire was advanced and the needle exchanged for a non-tunneled dialysis catheter using standard Salinger technique. Attention was turned to the central venous catheter. Using real-time ultrasound guidance a 18 gauge vascular needle was used to access the right internal jugular vein. An image was stored in the electronic medical record. A wire was advanced while monitoring the patient's cardiac rhythm and the needle exchanged for a non-tunneled central venous catheter using standard Salinger technique. At the end of the procedure the catheters were flushed, secured to the skin and a sterile dressing applied. The patient tolerated the procedure well and without immediate complication. Findings: Patent right internal jugular vein as demonstrated by normal ultrasound compressibility. Impression: 1. Successful placement of a non-tunneled right internal jugular vein dialysis catheter using ultrasound guidance. 2. Successful placement of a non-tunneled right internal jugular central venous catheter using ultrasound guidance. This report was generated with voice-recognition technology. Errors in visual effects artist can occur. Please interpret accordingly and contact a radiologist if there are any questions regarding the report. Signed by: Dr. Amadeo Maciel M.D. on 03/30/2018 2:20 PM
--- NOTE | 2018-03-30 14:24 | Diagnostic Imaging Report ---
Non-tunneled Dialysis Catheter Placement and central venous catheter placement 03/30/2018 Pre-Procedure Diagnosis: Acute renal insufficiency; multiorgan failure Post-procedure Diagnosis:Acute renal insufficiency; multiorgan failure Correctional Treatment Specialist: Timur Maciel Advanced Quality Engineer: None Sedation: None. Heart rate and oxygen saturation were monitored in real-time. Blood pressure was measured in 5 minute increments. 1% lidocaine was used for local anesthesia. Estimate blood loss: <5 mL Blood administered: None Complications: None Implants/Grafts: 13 Sami 15 cm 3 lumen temporary dialysis catheter (Trialysis); 16 cm 7-Sami 3 lumen CVC Specimen: None Procedure: Informed consent was obtained and the patient positioned supine in the ICU. A timeout was performed, followed by preliminary ultrasound of the right internal jugular vein (see findings below). The right neck and chest were prepped and draped in standard fashion. Using real-time ultrasound guidance a 18 gauge vascular needle was used to access the right internal jugular vein. An image was stored in the electronic medical record. A wire was advanced and the needle exchanged for a non-tunneled dialysis catheter using standard Salinger technique. Attention was turned to the central venous catheter. Using real-time ultrasound guidance a 18 gauge vascular needle was used to access the right internal jugular vein. An image was stored in the electronic medical record. A wire was advanced while monitoring the patient's cardiac rhythm and the needle exchanged for a non-tunneled central venous catheter using standard Salinger technique. At the end of the procedure the catheters were flushed, secured to the skin and a sterile dressing applied. The patient tolerated the procedure well and without immediate complication. Findings: Patent right internal jugular vein as demonstrated by normal ultrasound compressibility. Impression: 1. Successful placement of a non-tunneled right internal jugular vein dialysis catheter using ultrasound guidance. 2. Successful placement of a non-tunneled right internal jugular central venous catheter using ultrasound guidance. This report was generated with voice-recognition technology. Errors in duct maker can occur. Please interpret accordingly and contact a radiologist if there are any questions regarding the report. Signed by: Dr. Amadeo Maciel M.D. on 03/30/2018 2:20 PM
--- NOTE | 2018-03-30 14:24 | Diagnostic Imaging Report ---
Non-tunneled Dialysis Catheter Placement and central venous catheter placement 03/30/2018 Pre-Procedure Diagnosis: Acute renal insufficiency; multiorgan failure Post-procedure Diagnosis:Acute renal insufficiency; multiorgan failure Automatic Riveting Machine Operator: Timur Maciel Young Adult Librarian: None Sedation: None. Heart rate and oxygen saturation were monitored in real-time. Blood pressure was measured in 5 minute increments. 1% lidocaine was used for local anesthesia. Estimate blood loss: <5 mL Blood administered: None Complications: None Implants/Grafts: 13 Chinese 15 cm 3 lumen temporary dialysis catheter (Trialysis); 16 cm 7-Chinese 3 lumen CVC Specimen: None Procedure: Informed consent was obtained and the patient positioned supine in the ICU. A timeout was performed, followed by preliminary ultrasound of the right internal jugular vein (see findings below). The right neck and chest were prepped and draped in standard fashion. Using real-time ultrasound guidance a 18 gauge vascular needle was used to access the right internal jugular vein. An image was stored in the electronic medical record. A wire was advanced and the needle exchanged for a non-tunneled dialysis catheter using standard Salinger technique. Attention was turned to the central venous catheter. Using real-time ultrasound guidance a 18 gauge vascular needle was used to access the right internal jugular vein. An image was stored in the electronic medical record. A wire was advanced while monitoring the patient's cardiac rhythm and the needle exchanged for a non-tunneled central venous catheter using standard Salinger technique. At the end of the procedure the catheters were flushed, secured to the skin and a sterile dressing applied. The patient tolerated the procedure well and without immediate complication. Findings: Patent right internal jugular vein as demonstrated by normal ultrasound compressibility. Impression: 1. Successful placement of a non-tunneled right internal jugular vein dialysis catheter using ultrasound guidance. 2. Successful placement of a non-tunneled right internal jugular central venous catheter using ultrasound guidance. This report was generated with voice-recognition technology. Errors in sports broadcasting internship can occur. Please interpret accordingly and contact a radiologist if there are any questions regarding the report. Signed by: Dr. Amadeo Maciel M.D. on 03/30/2018 2:20 PM
--- NOTE | 2018-03-30 14:24 | Diagnostic Imaging Report ---
Non-tunneled Dialysis Catheter Placement and central venous catheter placement 03/30/2018 Pre-Procedure Diagnosis: Acute renal insufficiency; multiorgan failure Post-procedure Diagnosis:Acute renal insufficiency; multiorgan failure Line Analyst: Timur Maciel Pumping Station Supervisor: None Sedation: None. Heart rate and oxygen saturation were monitored in real-time. Blood pressure was measured in 5 minute increments. 1% lidocaine was used for local anesthesia. Estimate blood loss: <5 mL Blood administered: None Complications: None Implants/Grafts: 13 Divehi 15 cm 3 lumen temporary dialysis catheter (Trialysis); 16 cm 7-Divehi 3 lumen CVC Specimen: None Procedure: Informed consent was obtained and the patient positioned supine in the ICU. A timeout was performed, followed by preliminary ultrasound of the right internal jugular vein (see findings below). The right neck and chest were prepped and draped in standard fashion. Using real-time ultrasound guidance a 18 gauge vascular needle was used to access the right internal jugular vein. An image was stored in the electronic medical record. A wire was advanced and the needle exchanged for a non-tunneled dialysis catheter using standard Salinger technique. Attention was turned to the central venous catheter. Using real-time ultrasound guidance a 18 gauge vascular needle was used to access the right internal jugular vein. An image was stored in the electronic medical record. A wire was advanced while monitoring the patient's cardiac rhythm and the needle exchanged for a non-tunneled central venous catheter using standard Salinger technique. At the end of the procedure the catheters were flushed, secured to the skin and a sterile dressing applied. The patient tolerated the procedure well and without immediate complication. Findings: Patent right internal jugular vein as demonstrated by normal ultrasound compressibility. Impression: 1. Successful placement of a non-tunneled right internal jugular vein dialysis catheter using ultrasound guidance. 2. Successful placement of a non-tunneled right internal jugular central venous catheter using ultrasound guidance. This report was generated with voice-recognition technology. Errors in oracle hrms developer can occur. Please interpret accordingly and contact a radiologist if there are any questions regarding the report. Signed by: Dr. Amadeo Maciel M.D. on 03/30/2018 2:20 PM
--- NOTE | 2018-03-30 14:24 | Diagnostic Imaging Report ---
Non-tunneled Dialysis Catheter Placement and central venous catheter placement 03/30/2018 Pre-Procedure Diagnosis: Acute renal insufficiency; multiorgan failure Post-procedure Diagnosis:Acute renal insufficiency; multiorgan failure Mold Closer: Timur Maciel Management Liaison: None Sedation: None. Heart rate and oxygen saturation were monitored in real-time. Blood pressure was measured in 5 minute increments. 1% lidocaine was used for local anesthesia. Estimate blood loss: <5 mL Blood administered: None Complications: None Implants/Grafts: 13 Yoruba 15 cm 3 lumen temporary dialysis catheter (Trialysis); 16 cm 7-Yoruba 3 lumen CVC Specimen: None Procedure: Informed consent was obtained and the patient positioned supine in the ICU. A timeout was performed, followed by preliminary ultrasound of the right internal jugular vein (see findings below). The right neck and chest were prepped and draped in standard fashion. Using real-time ultrasound guidance a 18 gauge vascular needle was used to access the right internal jugular vein. An image was stored in the electronic medical record. A wire was advanced and the needle exchanged for a non-tunneled dialysis catheter using standard Salinger technique. Attention was turned to the central venous catheter. Using real-time ultrasound guidance a 18 gauge vascular needle was used to access the right internal jugular vein. An image was stored in the electronic medical record. A wire was advanced while monitoring the patient's cardiac rhythm and the needle exchanged for a non-tunneled central venous catheter using standard Salinger technique. At the end of the procedure the catheters were flushed, secured to the skin and a sterile dressing applied. The patient tolerated the procedure well and without immediate complication. Findings: Patent right internal jugular vein as demonstrated by normal ultrasound compressibility. Impression: 1. Successful placement of a non-tunneled right internal jugular vein dialysis catheter using ultrasound guidance. 2. Successful placement of a non-tunneled right internal jugular central venous catheter using ultrasound guidance. This report was generated with voice-recognition technology. Errors in chip silo tender can occur. Please interpret accordingly and contact a radiologist if there are any questions regarding the report. Signed by: Dr. Amadeo Maciel M.D. on 03/30/2018 2:20 PM
[2018-03-30] MEDS ORDERED: SODIUM CHLORIDE 0.9% 500ML 500 ML ONE (16:01)
[2018-03-30] MEDS ORDERED: MANNITOL 25% 12.5GM/50ML 100 ML ONE (17:28)
[2018-03-30] MEDS ORDERED: SODIUM CHLORIDE 0.9% 1000ML 1,000 ML IV PRN (17:45)
[2018-03-30] MEDS ORDERED: MANNITOL 25% 12.5GM/50 ML VIAL IV PRN (17:45)
[2018-03-30] MEDS ORDERED: HEPARIN SOD (PORCINE) 1000 UNIT/ML SDV IV PRN (17:45)
[2018-03-30] MEDS ORDERED: ALBUMIN 5% 250ML IV SCH (18:00)
--- NOTE | 2018-03-30 18:59 | Consultation ---
DATE OF CONSULTATION: March 29, 2018 HEMATOLOGY CONSULT Ivan Cerrato is a 67-year-old white male who has been intubated. The patient has a D-dimer of more than 1200. A pulmonary embolus is suspected. Subsequently referred to me for anticoagulation. The patient is on weight-based heparin protocol. However, the PTT has not been able to be controlled. SOCIAL HISTORY: Noncontributory. FAMILY HISTORY: Could not be obtained. ALLERGIES: REPORTED NONE. MEDICATIONS: At this time 1. Albuterol. 2. Norepinephrine. 3. Phenylephrine. 4. Vasopressin. 5. Metronidazole. 6. Lasix. 7. Aspirin. 8. Cholecalciferol. 9. Insulin. 10. Reglan. 11. Acetylcysteine. 12. Cefepime. REVIEW OF SYSTEMS: HEENT: Normal. RESPIRATORY: Intubated. GI: Normal. : Renal failure. MUSCULOSKELETAL: Morbid obesity. PHYSICAL EXAMINATION: GENERAL: A morbidly obese male. Intubated. No adenopathy. HEART: Tachycardic. LUNGS: Coarse crepitations. ABDOMEN: Obese. Mo catheter seen. CENTRAL NERVOUS SYSTEM: Could not be done. LABORATORY DATA: Shows an ER BUN of 90, creatinine of 2.6. Sodium 140, potassium 4.8, chloride is 104, CO2 27, glucose 157. Hemoglobin of 10.3, hematocrit 32.9, white count of 15,100, platelets of 222,000. INR 1.3. Bilirubin 0.9, SGOT 46, SGPT 60, alkaline phosphatase 93. D-dimer 2180. CHEST X-RAY: Pulmonary edema. IMPRESSION: 1. Respiratory failure. 2. Status post intubation. 3. Hypotension, now on vasopressors. 4. Anemia. Hemoglobin of 10.3. 5. Chronic renal failure. 6. Leukocytosis of 15.1. 7. Hyperglycemia. 8. Hypoalbuminemia of 2.6. 9. Hyperglobulinemia of 4.2. 10. Pulmonary edema. 11. High D-dimer, highly suggestive of pulmonary embolus. PLAN, COMMENTS AND SUGGESTIONS: I will confine myself to hematology. As the patient is on ventilatory support with a PEEP of 15, Arixtra could be used as anticoagulant if the weight-based protocol cannot get the PTT up. I have discussed this with Dr. Henning. Job#: [id number] EV cc:MD DANAE PANIAGUA MD
[2018-03-30] MEDS: FONDAPARINUX SODIUM 10 MG/0.8 ML SYR SQ SCH (19:08)
[2018-03-30] MEDS ORDERED: INSULIN DETEMIR 100 UNIT/ML PEN SQ SCH (21:00)
[2018-03-30] MEDS: ATORVASTATIN 20 MG TAB PO SCH (22:02)
[2018-03-30] MEDS: HYDROMORPHONE 100 ML IV PRN (22:06)
[2018-03-30] MEDS: CISATRACURIUM BESYLATE IV PRN (22:10)
[2018-03-30] MEDS: SODIUM CHLORIDE 0.9% IV PRN (22:10)
[2018-03-31] VITALS (69 sets, daily range): BP systolic 65–157; BP diastolic 40–106
[2018-03-31] MEDS: ALBUMIN 5% 250 ML IV SCH ×2 (00:13→06:00)
[2018-03-31] MEDS: VANCOMYCIN 250MG/5ML ORAL SOLN PO SCH ×4 (00:13→19:07)
[2018-03-31] MEDS: INSULIN LISPRO 100 UNIT/1 ML 3ML VIAL SQ SCH ×4 (00:14→18:00)
[2018-03-31] MEDS: ALBUTEROL SULF 0.083% NEB SOLN 3 ML NEB NEB SCH ×4 (01:15→19:20)
[2018-03-31] MEDS: MIDAZOLAM HCL 25 MG in SODIUM CHLORIDE 0.9% 50ML 45 ML IV PRN ×4 (01:18→20:54)
[2018-03-31] MEDS: ACETYLCYSTEINE 20% INHAL SOLN 30 ML VIAL INH SCH ×4 (01:28→19:20)
[2018-03-31] MEDS: CISATRACURIUM BESYLATE IV PRN ×2 (03:00→21:45)
[2018-03-31] MEDS: SODIUM CHLORIDE 0.9% IV PRN ×2 (03:00→21:45)
[2018-03-31] MEDS: NOREPINEPHRINE INJ 4MG/4ML 8 MG in DEXTROSE 5% 250ML 250 ML IV PRN (03:20)
[2018-03-31] MEDS: METRONIDAZOLE 500MG/NS 100ML 100 ML IV SCH ×3 (06:00→22:26)
[2018-03-31 06:23] LABS: BASOPHILS # (AUTO) 0.2 (0.0-0.1); BASOPHILS % 0.6 % (0.0-1.0); EOSINOPHILS # (AUTO) 0.1 (0.0-0.4); EOSINOPHILS % 0.4 % (0.0-6.0); HEMATOCRIT 33.1 % (38.2-49.6); LYMPHOCYTES # (AUTO) 1.2 (1.0-3.2); LYMPHOCYTES % 4.6 % (18.0-39.1); MEAN CORPUSCULAR HEMOGLOBIN 31.1 pg (28-32); MEAN CORPUSCULAR HGB CONC 30.2 g/dL (31-35); MEAN CORPUSCULAR VOLUME 102.8 fL (81-99); MONOCYTES # (AUTO) 1.7 (0.2-0.8); MONOCYTES % 6.7 % (4.4-11.3); NEUTROPHILS # (AUTO) 21.1 (2.1-6.9); NEUTROPHILS % 82.9 % (38.7-80.0); PLATELET COUNT 274 x10e3/uL (140-360); RED BLOOD COUNT 3.22 x10e6/uL (4.3-5.7); RED CELL DISTRIBUTION WIDTH 14.7 % (11.7-14.4)
--- NOTE | 2018-03-31 06:28 | Operative Report ---
DATE OF PROCEDURE: March 30, 2018 INDICATIONS: Shock with multiorgan failure. PROCEDURES PERFORMED: Insertion of the radial stent arterial line. Consent was obtained from the patient's family. The right radial location was prepped in sterile conditions. Using ultrasound guidance, a 4-Irish radial artery catheter was placed, flushed and secured in place with excellent arterial wave forms and blood pressure recordings. Job#: [id number] RI
[2018-03-31 06:54] LABS: CALCIUM 8.8 mg/dL (8.4-10.2); CREATININE, SERUM 3.72 mg/dL (0.72-1.25)
[2018-03-31] MEDS ORDERED: NOREPINEPHRINE 8 MG/D5W 250 ML 250 ML ONE (07:22)
[2018-03-31] MEDS: VASOPRESSIN 100 UNIT in DEXTROSE 5% 100ML 100 ML IV PRN (07:25)
[2018-03-31 08:39] LABS: ANISOCYTOSIS SLIGHT; BAND NEUTROPHILS % (MANUAL) 1 %; HYPOCHROMASIA SLIGHT; LYMPHOCYTES % (MANUAL) 9 % (19-48); METAMYELOCYTES % (MANUAL) 2 % (0-0); MONOCYTES % (MANUAL) 5 % (3.4-9.0); MYELOCYTES % (MANUAL) 1 % (0-0); NEUTROPHILS % (MANUAL) 82 % (40-74); PLATELET ESTIMATE ADEQUATE; PLATELET MORPHOLOGY COMMENT NORMAL; RBC MORPHOLOGY COMMENT NORMAL
[2018-03-31] MEDS: NABUMETONE 750 MG PO SCH ×2 (09:00→17:00)
[2018-03-31] MEDS: ASPIRIN 81 MG CHEW TAB PO SCH (09:00)
[2018-03-31] MEDS: CHOLECALCIFEROL 1,000 UNIT TAB PO SCH (09:00)
[2018-03-31] MEDS: VANCOMYCIN 1GM/NS 250 ML 250 ML IV SCH (09:00)
[2018-03-31] MEDS: GLUCOSAMINE SULFATE 500 MG PO SCH (09:00)
[2018-03-31] MEDS: MULTIVITAMINS/MINERALS TAB PO SCH (09:00)
[2018-03-31] MEDS ORDERED: MICAFUNGIN SODIUM 50 MG/50 ML BAG IV SCH (09:00)
[2018-03-31 09:20] LABS: ABG HCO3 23 mmol/L (23-28); ABG PCO2 54 mmHg (41-51); ABG PH 7.23 (7.31-7.41); ABG PO2 89 mmHg (80-105)
--- NOTE | 2018-03-31 10:13 | Progress Note ---
DATE: March 31, 2018 CARDIOLOGY PROGRESS NOTE SUBJECTIVE: The patient remains intubated, sedated and paralyzed. He continues to require significant ventilatory support with an FiO2 of 80% and PEEP of 22. He has continued pressor requirements with Levophed 20 mcg per minute and vasopressin 0.03 units per minute. The patient was initiated on hemodialysis yesterday after placement of a right internal jugular dialysis catheter. He also had placement of a right internal jugular central line as well as a right radial arterial line. OBJECTIVE VITALS: Temperature 98.5 degrees, pulse 80, respiratory rate 24, blood pressure 122/61, oxygen saturation 97% on mechanical ventilation. GENERAL: Morbidly obese man, remains intubated, sedated and paralyzed. LUNGS: Clear to auscultation bilaterally. No wheezes or crackles. CARDIOVASCULAR: Normal rate. Regular rhythm. No murmur. Normal S1 and S2. ABDOMEN: Soft. EXTREMITIES: There is 1+ pitting edema with compression wrappings on bilateral lower extremities. CARDIAC MEDICATIONS 1. Levophed 20 mcg per minute. 2. Vasopressin 0.03 units per minute. 3. Atorvastatin 20 mg p.o. at bedtime. 4. Fondaparinux 10 mg subcutaneous q.24 h. 5. Aspirin 81 mg p.o. daily. LABS: WBC 25.39, hemoglobin 10, hematocrit 33.1, platelets 274. Sodium 140, potassium 5, chloride 103, CO2 22, BUN 97, creatinine 3.72. PH 7.23, pCO2 54, pO2 89, oxygen saturation 95%. TELEMETRY: Normal sinus rhythm. IMPRESSION 1. Status post pulseless electrical activity arrest. 2. Septic shock requiring vasopressor support. 3. Suspected pulmonary embolus, unable to be confirmed secondary to inability to CT the patient. 4. Acute kidney injury, initiated on hemodialysis. 5. Multifocal pneumonia. 6. Suspected aspiration pneumonia. 7. Rtzzo-zy-cwnwife diastolic heart failure. 8. Acute respiratory failure requiring ventilatory support. 9. Sinus tachycardia, resolved. 10. Hypertension, currently hypotensive as above. 11. Diabetes mellitus. 12. Right lower extremity cellulitis. RECOMMENDATIONS: Anticoagulation per hematology. Patient was unable to achieve a therapeutic PTT on heparin drip. Antibiotics per infectious disease. Continue monitoring the patient on telemetry. Volume management per nephrology given acute kidney injury. Fluid and pressor support for the patient's presumed septic shock. He continues to have significant oxygen requirement. Ventilator management per pulmonary. His prognosis is guarded. Thank you for this consult. We will continue to follow. Job#: [id number]
--- NOTE | 2018-03-31 10:23 | Diagnostic Imaging Report ---
PROCEDURE: A single AP view of the chest. COMPARISON: Portable chest 03/30/2018. INDICATIONS: ETT PLACEMENT FINDINGS: Lines/tubes: Right internal jugular tunneled central venous catheter with tip projecting over the expected region of the superior vena cava. Endotracheal catheter is present with the tip projecting over the expected region of the trachea, positioned 6 cm from the osmar. Enteric feeding catheter is present with the tip extending below the inferior margin of the examination, likely within the gastric body. Lungs: Bilateral multifocal airspace opacities. No parenchymal mass. Pleura: Moderate right pleural effusion. No pneumothorax. Heart and mediastinum: The heart and the mediastinum are unremarkable. Bones: No acute bony abnormality. Degenerative changes of the thoracic spine. IMPRESSION: Moderate right pleural effusion. Dictated by: Dve Rashid M.D. on 03/31/2018 at 10:25 Electronically approved by: Dev Rashid M.D. on 03/31/2018 at 10:25
[2018-03-31] MEDS: METOCLOPRAMIDE HCL 10 MG/2ML VIAL IV SCH ×3 (11:06→21:19)
[2018-03-31] MEDS: PANTOPRAZOLE 40 MG 10ML VIAL IV SCH (11:06)
[2018-03-31] MEDS: MICAFUNGIN SODIUM 100 ML IV SCH (11:06)
[2018-03-31] MEDS: CEFEPIME HCL 1 GM VIAL IV SCH (11:06)
[2018-03-31] MEDS: HYDROMORPHONE 100 ML IV PRN (12:00)
[2018-03-31] MEDS: FONDAPARINUX SODIUM 10 MG/0.8 ML SYR SQ SCH (19:00)
[2018-03-31] MEDS ORDERED: INSULIN DETEMIR 100 UNIT/ML PEN SQ SCH (21:00)
[2018-03-31] MEDS: ATORVASTATIN 20 MG TAB PO SCH (21:19)
[2018-03-31] MEDS ORDERED: SODIUM CHLORIDE 0.9% 250ML 250 ML ONE (22:19)
[2018-04-01] VITALS (144 sets, daily range): BP systolic 87–169; BP diastolic 49–75
[2018-04-01] MEDS: VANCOMYCIN 250MG/5ML ORAL SOLN PO SCH ×4 (00:08→18:00)
[2018-04-01] MEDS: NOREPINEPHRINE INJ 4MG/4ML 8 MG in DEXTROSE 5% 250ML 250 ML IV PRN (00:23)
[2018-04-01] MEDS: MIDAZOLAM HCL 25 MG in SODIUM CHLORIDE 0.9% 50ML 45 ML IV PRN ×8 (00:23→22:45)
[2018-04-01] MEDS: INSULIN LISPRO 100 UNIT/1 ML 3ML VIAL SQ SCH ×4 (00:24→18:00)
[2018-04-01] MEDS: CISATRACURIUM BESYLATE IV PRN ×2 (01:36→06:26)
[2018-04-01] MEDS: SODIUM CHLORIDE 0.9% IV PRN ×2 (01:36→06:26)
[2018-04-01] MEDS: ALBUTEROL SULF 0.083% NEB SOLN 3 ML NEB NEB SCH ×4 (02:45→18:56)
[2018-04-01] MEDS: ACETYLCYSTEINE 20% INHAL SOLN 30 ML VIAL INH SCH ×4 (02:45→18:56)
[2018-04-01] MEDS: HYDROMORPHONE 100 ML IV PRN ×2 (05:22→18:53)
[2018-04-01] MEDS: METRONIDAZOLE 500MG/NS 100ML 100 ML IV SCH (06:03)
[2018-04-01 06:15] LABS: BASOPHILS # (AUTO) 0.2 (0.0-0.1); BASOPHILS % 0.8 % (0.0-1.0); EOSINOPHILS # (AUTO) 0.2 (0.0-0.4); EOSINOPHILS % 1.1 % (0.0-6.0); HEMOGLOBIN 10.3 g/dL (14.0-18.0); LYMPHOCYTES # (AUTO) 1.2 (1.0-3.2); LYMPHOCYTES % 6.1 % (18.0-39.1); MEAN CORPUSCULAR HEMOGLOBIN 31.4 pg (28-32); MEAN CORPUSCULAR HGB CONC 31.2 g/dL (31-35); MEAN CORPUSCULAR VOLUME 100.6 fL (81-99); MONOCYTES # (AUTO) 1.5 (0.2-0.8); MONOCYTES % 7.5 % (4.4-11.3); NEUTROPHILS # (AUTO) 15.5 (2.1-6.9); NEUTROPHILS % 78.6 % (38.7-80.0); PLATELET COUNT 327 x10e3/uL (140-360); RED BLOOD COUNT 3.28 x10e6/uL (4.3-5.7); RED CELL DISTRIBUTION WIDTH 14.7 % (11.7-14.4)
[2018-04-01 06:41] LABS: ANION GAP 19.5 mmol/L (8-16); CREATININE, SERUM 3.56 mg/dL (0.72-1.25); MAGNESIUM 2.3 MG/DL (1.3-2.1); PHOSPHORUS 5.6 MG/DL (2.3-4.7); POTASSIUM 4.5 mmol/L (3.5-5.1)
[2018-04-01 08:39] LABS: BAND NEUTROPHILS % (MANUAL) 1 %; LYMPHOCYTES % (MANUAL) 8 % (19-48); MONOCYTES % (MANUAL) 3 % (3.4-9.0); NEUTROPHILS % (MANUAL) 88 % (40-74)
[2018-04-01 08:40] LABS: ANISOCYTOSIS SLIGHT; HYPOCHROMASIA SLIGHT; PLATELET ESTIMATE ADEQUATE; PLATELET MORPHOLOGY COMMENT NORMAL; RBC MORPHOLOGY COMMENT NORMAL
[2018-04-01] MEDS: ASPIRIN 81 MG CHEW TAB PO SCH (09:00)
[2018-04-01] MEDS: NABUMETONE 750 MG PO SCH ×2 (09:00→16:10)
[2018-04-01] MEDS: GLUCOSAMINE SULFATE 500 MG PO SCH (09:00)
[2018-04-01] MEDS: METOCLOPRAMIDE HCL 10 MG/2ML VIAL IV SCH ×3 (09:00→20:27)
[2018-04-01] MEDS: CHOLECALCIFEROL 1,000 UNIT TAB PO SCH (09:00)
[2018-04-01] MEDS: MULTIVITAMINS/MINERALS TAB PO SCH (09:00)
--- NOTE | 2018-04-01 11:15 | Progress Note ---
DATE: April 01, 2018 CARDIOLOGY PROGRESS NOTE SUBJECTIVE: The patient remains intubated and sedated. He is requiring less ventilatory support. Still requiring Levophed but less now at 10 mcg per minute and vasopressin at 0.05 units per minute. Currently receiving hemodialysis. He is no longer paralyzed. OBJECTIVE VITALS: Temperature 98.1 degrees, pulse 77, respiratory rate 24, blood pressure 103/49, oxygen saturation 92% on mechanical ventilation. GENERAL: Morbidly obese man, remains intubated and sedated. LUNGS: Clear to auscultation bilaterally. No wheezes or crackles. CARDIOVASCULAR: Normal rate. Regular rhythm. No murmur. Normal S1 and S2. ABDOMEN: Soft. EXTREMITIES: There is 1+ pitting edema with compression wrappings on bilateral lower extremities. CARDIAC MEDICATIONS 1. Levophed 10 mcg per minute. 2. Vasopressin 0.05 units per minute. 3. Atorvastatin 20 mg p.o. at bedtime. 4. Fondaparinux 10 mg subcutaneous q.24 h. 5. Aspirin 81 mg p.o. daily. LABS: WBC 19.65, hemoglobin 10.3, hematocrit 33, platelets 327. Sodium 139, potassium 4.5, chloride 102, CO2 22, BUN 80, creatinine 3.56. CHEST X-RAY: Moderate right pleural effusion. TELEMETRY: Normal sinus rhythm. IMPRESSION 1. Status post pulseless electrical activity arrest. 2. Septic shock requiring vasopressor support. 3. Suspected pulmonary embolus, unable to be confirmed secondary to inability to CT the patient. 4. Acute kidney injury, initiated on hemodialysis. 5. Multifocal pneumonia. 6. Suspected aspiration pneumonia. 7. Zjzrh-pz-iupxxqh diastolic heart failure. 8. Acute respiratory failure requiring ventilatory support. 9. Sinus tachycardia, resolved. 10. Hypertension, currently hypotensive as above. 11. Diabetes mellitus. 12. Right lower extremity cellulitis. RECOMMENDATIONS: Anticoagulation per hematology. Patient was unable to achieve a therapeutic PTT on heparin drip and is now on Arixtra. Antibiotics per infectious disease. Leukocytosis is improving. Continue monitoring the patient on telemetry. Volume management per nephrology given acute kidney injury. Ultrafiltration as tolerated. Fluid and pressor support as necessary for the patient's presumed septic shock. Requirements are decreasing. Ventilator management per pulmonary. Ventilatory requirements are decreasing as well. The patient's prognosis remains guarded, however. Thank you for this consult. We will continue to follow. Job#: [id number] MH
[2018-04-01] MEDS: VANCOMYCIN 1GM/NS 250 ML 250 ML IV SCH (11:27)
[2018-04-01 11:44] LABS: ABG PCO2 52 mmHg (41-51); ABG PH 7.32 (7.31-7.41)
[2018-04-01 11:45] LABS: ABG HCO3 26 mmol/L (23-28); ABG PO2 61 mmHg (80-105)
[2018-04-01] MEDS: MICAFUNGIN SODIUM 100 ML IV SCH (14:00)
[2018-04-01] MEDS: PANTOPRAZOLE 40 MG 10ML VIAL IV SCH (14:00)
[2018-04-01] MEDS: CEFEPIME HCL 1 GM VIAL IV SCH (14:00)
[2018-04-01] MEDS: FONDAPARINUX SODIUM 10 MG/0.8 ML SYR SQ SCH (19:00)
[2018-04-01] MEDS: ATORVASTATIN 20 MG TAB PO SCH (20:27)
[2018-04-01] MEDS: INSULIN DETEMIR 100 UNIT/ML PEN SQ SCH (20:35)
[2018-04-02] VITALS (107 sets, daily range): BP systolic 44–199; BP diastolic 24–109
[2018-04-02] MEDS: INSULIN LISPRO 100 UNIT/1 ML 3ML VIAL SQ SCH ×3 (00:17→12:00)
[2018-04-02] MEDS: VANCOMYCIN 250MG/5ML ORAL SOLN PO SCH ×5 (00:17→23:46)
[2018-04-02] MEDS: ACETYLCYSTEINE 20% INHAL SOLN 30 ML VIAL INH SCH ×4 (01:00→19:00)
[2018-04-02] MEDS: ALBUTEROL SULF 0.083% NEB SOLN 3 ML NEB NEB SCH ×4 (01:00→18:50)
[2018-04-02] MEDS: MIDAZOLAM HCL 25 MG in SODIUM CHLORIDE 0.9% 50ML 45 ML IV PRN ×5 (01:32→23:03)
[2018-04-02] MEDS: NOREPINEPHRINE INJ 4MG/4ML 8 MG in DEXTROSE 5% 250ML 250 ML IV PRN (03:53)
[2018-04-02 05:44] LABS: BASOPHILS # (AUTO) 0.1 (0.0-0.1); BASOPHILS % 0.7 % (0.0-1.0); EOSINOPHILS # (AUTO) 0.3 (0.0-0.4); EOSINOPHILS % 2.1 % (0.0-6.0); HEMATOCRIT 31.3 % (38.2-49.6); HEMOGLOBIN 9.7 g/dL (14.0-18.0); LYMPHOCYTES # (AUTO) 1.1 (1.0-3.2); LYMPHOCYTES % 7.5 % (18.0-39.1); MEAN CORPUSCULAR HEMOGLOBIN 31.6 pg (28-32); MONOCYTES # (AUTO) 1.2 (0.2-0.8); MONOCYTES % 7.9 % (4.4-11.3); NEUTROPHILS # (AUTO) 11.4 (2.1-6.9); NEUTROPHILS % 75.2 % (38.7-80.0); PLATELET COUNT 252 x10e3/uL (140-360); RED BLOOD COUNT 3.07 x10e6/uL (4.3-5.7); RED CELL DISTRIBUTION WIDTH 14.9 % (11.7-14.4)
[2018-04-02 06:00] LABS: ANION GAP 14.9 mmol/L (8-16); CREATININE, SERUM 3.36 mg/dL (0.72-1.25); POTASSIUM 3.9 mmol/L (3.5-5.1)
[2018-04-02] MEDS: CEFEPIME HCL 1 GM VIAL IV SCH (09:00)
[2018-04-02] MEDS: GLUCOSAMINE SULFATE 500 MG PO SCH (09:00)
[2018-04-02] MEDS: MULTIVITAMINS/MINERALS TAB PO SCH (09:00)
[2018-04-02] MEDS: CHOLECALCIFEROL 1,000 UNIT TAB PO SCH (09:00)
[2018-04-02] MEDS: ASPIRIN 81 MG CHEW TAB PO SCH (09:00)
[2018-04-02] MEDS: NABUMETONE 750 MG PO SCH ×2 (09:00→16:43)
[2018-04-02] MEDS: PANTOPRAZOLE 40 MG 10ML VIAL IV SCH (09:00)
[2018-04-02] MEDS: METOCLOPRAMIDE HCL 10 MG/2ML VIAL IV SCH ×3 (09:00→20:47)
--- NOTE | 2018-04-02 09:35 | Progress Note ---
DATE: April 02, 2018 CARDIOLOGY PROGRESS NOTE SUBJECTIVE: The patient remains intubated and sedated. He is requiring FiO2 at 65% with PEEP of 18. He remains on vasopressin at 0.05 units per minute and Levophed 6 mcg per minute. Plan for further ultrafiltration by nephrology today. OBJECTIVE VITALS: Temperature 99.3 degrees, pulse 77, respiratory rate 24, blood pressure 102/51, oxygen saturation 95% on mechanical ventilation. GENERAL: Morbidly obese gentleman in no acute distress. Remains intubated and sedated. LUNGS: Clear to auscultation bilaterally. No wheezes or crackles. CARDIOVASCULAR: Normal rate. Regular rhythm. No murmur. Normal S1 and S2. ABDOMEN: Soft. EXTREMITIES: There is 1+ pitting edema with compression wrappings on bilateral lower extremities. CARDIAC MEDICATIONS 1. Levophed 6 mcg per minute. 2. Vasopressin 0.05 units per minute. 3. Atorvastatin 20 mg p.o. at bedtime. 4. Fondaparinux 10 mg subcutaneous q.24 h. 5. Aspirin 81 mg p.o. daily. LABS: WBC 15.12, hemoglobin 9.7, hematocrit 31.3, platelets 252. Sodium 141, potassium 3.9, chloride 104, CO2 26, BUN 55, creatinine 3.36. TELEMETRY: Normal sinus rhythm. IMPRESSION 1. Status post pulseless electrical activity arrest. 2. Septic shock requiring vasopressor support. 3. Suspected pulmonary embolus, unable to be confirmed secondary to inability to CT the patient. 4. Acute kidney injury, initiated on hemodialysis. 5. Multifocal pneumonia. 6. Suspected aspiration pneumonia. 7. Ccead-fd-sberyag diastolic heart failure. 8. Acute respiratory failure requiring ventilatory support. 9. Sinus tachycardia, resolved. 10. Hypertension, currently hypotensive as above. 11. Diabetes mellitus. 12. Right lower extremity cellulitis. RECOMMENDATIONS: Anticoagulation per hematology. Patient is on Arixtra. Antibiotics per infectious disease. Leukocytosis continues to improve. Monitor the patient on telemetry. Volume management per nephrology given acute kidney injury. Ultrafiltration as tolerated. Wean pressors with MAP above 65. Ventilator management per pulmonary. The patient is gradually improving; however, his prognosis remains guarded. Thank you for this consult. We will continue to follow. Job#: [id number]
[2018-04-02] MEDS: MICAFUNGIN SODIUM 100 ML IV SCH (10:00)
[2018-04-02 10:39] LABS: ABG HCO3 25 mmol/L (23-28); ABG PCO2 51 mmHg (41-51); ABG PO2 58 mmHg (80-105)
[2018-04-02] MEDS ORDERED: MANNITOL 25% 12.5GM/50ML 100 ML ONE (12:28)
--- NOTE | 2018-04-02 16:13 | Diagnostic Imaging Report ---
PROCEDURE: A single AP view of the chest. COMPARISON: Chest radiograph 03/31/2018 INDICATIONS: INTUNBATION, DUE TO BODY HABITUS BEST IMAGES SENT FINDINGS: Severely limited exam secondary to body habitus. The costophrenic sulci are outside the field of view. Lines/tubes: * ET tube projects approximately 9 cm above the osmar. * Right internal jugular central venous catheter tip projects over the expected region of the superior vena cava. * Enteric tube extends below the diaphragm, out of the field of view. Lungs: Diffuse opacification of the right lung on one of the images, likely secondary to layering effusion with atelectasis. Interstitial edema. Pleura: Increased large right pleural effusion. No pneumothorax. Heart and mediastinum: The right heart border is obscured by effusion. The heart extends outside the field of view. Bones: Unchanged. IMPRESSION: Severely limited exam. Lines and tubes as above. Increased large right pleural effusion. Interstitial edema. Dictated by: Erick Madsen M.D. on 04/02/2018 at 16:14 Electronically approved by: Erick Madsen M.D. on 04/02/2018 at 16:14
[2018-04-02] MEDS: VANCOMYCIN 1GM/NS 250 ML 250 ML IV SCH (16:39)
[2018-04-02] MEDS ORDERED: ALBUMIN 5% 250ML IV ONE ×2 (16:45→17:00)
[2018-04-02] MEDS ORDERED: AMIODARONE HCL 150 MG/100 ML BAG IV ONE (18:15)
[2018-04-02] MEDS ORDERED: AMIODARONE HCL 900 MG in DEXTROSE 5% 500ML 500 ML IV SCH (18:30)
[2018-04-02] MEDS: AMIODARONE HCL 900 MG in DEXTROSE 5 % 500ML BOTTLE 500 ML IV SCH (18:45)
[2018-04-02] MEDS: INSULIN DETEMIR 100 UNIT/ML PEN SQ SCH (20:47)
[2018-04-02] MEDS: FONDAPARINUX SODIUM 10 MG/0.8 ML SYR SQ SCH (20:47)
[2018-04-02] MEDS: ATORVASTATIN 20 MG TAB PO SCH (20:47)
[2018-04-03] VITALS (102 sets, daily range): BP systolic 91–144; BP diastolic 42–74
[2018-04-03] MEDS: HYDROMORPHONE 100 ML IV PRN ×2 (00:21→12:21)
[2018-04-03] MEDS: ACETYLCYSTEINE 20% INHAL SOLN 30 ML VIAL INH SCH ×4 (01:00→19:45)
[2018-04-03] MEDS: VASOPRESSIN 100 UNIT in DEXTROSE 5% 100ML 100 ML IV PRN (02:03)
[2018-04-03] MEDS: ALBUTEROL SULF 0.083% NEB SOLN 3 ML NEB NEB SCH ×4 (02:30→19:45)
[2018-04-03] MEDS: MIDAZOLAM HCL 25 MG in SODIUM CHLORIDE 0.9% 50ML 45 ML IV PRN ×4 (02:51→13:02)
[2018-04-03] MEDS: VANCOMYCIN 250MG/5ML ORAL SOLN PO SCH ×3 (05:55→17:52)
[2018-04-03] MEDS: INSULIN LISPRO 100 UNIT/1 ML 3ML VIAL SQ SCH ×4 (06:00→18:11)
[2018-04-03 06:01] LABS: ANION GAP 17.3 mmol/L (8-16); CALCIUM 9.3 mg/dL (8.4-10.2); CREATININE, SERUM 4.25 mg/dL (0.72-1.25); POTASSIUM 4.3 mmol/L (3.5-5.1)
[2018-04-03] MEDS: ALBUMIN 5% 250ML IV SCH ×3 (08:29→22:11)
[2018-04-03] MEDS: PANTOPRAZOLE 40 MG 10ML VIAL IV SCH (08:37)
[2018-04-03] MEDS: CEFEPIME HCL 1 GM VIAL IV SCH (08:37)
[2018-04-03] MEDS: MIDODRINE 2.5 MG TAB PO SCH ×3 (08:37→17:52)
[2018-04-03] MEDS: ASPIRIN 81 MG CHEW TAB PO SCH (08:37)
[2018-04-03] MEDS: METOCLOPRAMIDE HCL 10 MG/2ML VIAL IV SCH ×3 (08:37→22:10)
[2018-04-03] MEDS: CHOLECALCIFEROL 1,000 UNIT TAB PO SCH (09:00)
[2018-04-03] MEDS: MULTIVITAMINS/MINERALS TAB PO SCH (09:00)
[2018-04-03] MEDS: NABUMETONE 750 MG PO SCH ×2 (09:00→16:23)
[2018-04-03] MEDS: GLUCOSAMINE SULFATE 500 MG PO SCH (09:00)
[2018-04-03] MEDS: MICAFUNGIN SODIUM 100 ML IV SCH (10:45)
[2018-04-03] MEDS: NOREPINEPHRINE INJ 4MG/4ML 8 MG in DEXTROSE 5% 250ML 250 ML IV PRN (11:24)
--- NOTE | 2018-04-03 11:41 | Progress Note ---
DATE: April 03, 2018 CARDIOLOGY PROGRESS NOTE SUBJECTIVE: Patient is unable to report. He is intubated, sedated and on vasopressors. OBJECTIVE VITAL SIGNS: Temperature 98.5, pulse 65, respiratory rate 24. Blood pressure 95/56. Oxygen saturation 94% on mechanical ventilator. CARDIOVASCULAR MEDICATIONS 1. Midodrine 10 mg p.o. t.i.d. 2. Aspirin 81 p.o. daily. 3. Propofol IV titrate. 4. Vasopressin IV titrate. 5. Arixtra 10 mg subcutaneous q.24 h. 6. Atorvastatin 20 mg p.o. nightly. 7. Amiodarone IV drip. LABS: Sodium 138, potassium 4.3, BUN 72, creatinine 4.25, glucose 237, calcium 9.3. TELEMETRY: Sinus rhythm now, reported to be in AFib with RVR yesterday status post dialysis. IMPRESSION 1. Status post pulseless electrical activity arrest. 2. Septic shock requiring vasopressors. 3. Suspected pulmonary embolism, unable to confirm secondary to inability to CT the patient. 4. Acute kidney injury, currently on hemodialysis. 5. Multifocal pneumonia. 6. Suspect aspiration pneumonia also. 7. Nzriq-as-qweqyyh diastolic heart failure. 8. Acute respiratory failure requiring ventilator support. 9. Atrial fibrillation with rapid ventricular response, paroxysmal, now resolved, in sinus rhythm. 10. Hypertension. However, hypotensive now. 11. Diabetes mellitus. 12. Right lower extremity cellulitis. 13. Morbid obesity. RECOMMENDATIONS: Anticoagulation per hematology. Patient is on Arixtra. Continue the above-listed cardiac medications. Antimicrobial therapy per infectious disease. Maintain on telemetry. Amiodarone IV drip has been initiated for rate control, currently in sinus rhythm. Ventilator management per pulmonary. His prognosis remains to be quite guarded. Will continue to follow. Dictated by Sherrie Kumari NP. Job#: [id number]
[2018-04-03] MEDS: AMIODARONE HCL 900 MG in DEXTROSE 5 % 500ML BOTTLE 500 ML IV SCH (11:45)
[2018-04-03] MEDS ORDERED: ALBUMIN 5% 250ML IV SCH (14:00)
[2018-04-03 14:04] LABS: ABG HCO3 25 mmol/L (23-28); ABG PCO2 57 mmHg (41-51); ABG PH 7.24 (7.31-7.41); ABG PO2 88 mmHg (80-105)
[2018-04-03] MEDS ORDERED: ALBUMIN 25% 12.5GM 100 ML IV ONE (15:40)
[2018-04-03] MEDS: VANCOMYCIN 1GM/NS 250 ML 250 ML IV SCH (20:45)
[2018-04-03] MEDS: FONDAPARINUX SODIUM 10 MG/0.8 ML SYR SQ SCH (22:10)
[2018-04-03] MEDS: ATORVASTATIN 20 MG TAB PO SCH (22:11)
[2018-04-03] MEDS: INSULIN DETEMIR 100 UNIT/ML PEN SQ SCH (22:11)
[2018-04-04] VITALS (83 sets, daily range): BP systolic 75–153; BP diastolic -8–86
[2018-04-04] MEDS: VANCOMYCIN 250MG/5ML ORAL SOLN PO SCH ×4 (00:27→16:59)
[2018-04-04] MEDS: INSULIN LISPRO 100 UNIT/1 ML 3ML VIAL SQ SCH ×4 (00:30→18:10)
[2018-04-04] MEDS: NOREPINEPHRINE INJ 4MG/4ML 8 MG in DEXTROSE 5% 250ML 250 ML IV PRN (02:02)
[2018-04-04] MEDS: AMIODARONE HCL 900 MG in DEXTROSE 5 % 500ML BOTTLE 500 ML IV SCH ×2 (02:09→14:40)
[2018-04-04] MEDS: ALBUTEROL SULF 0.083% NEB SOLN 3 ML NEB NEB SCH ×4 (02:40→20:00)
[2018-04-04] MEDS: ACETYLCYSTEINE 20% INHAL SOLN 30 ML VIAL INH SCH ×4 (02:40→20:00)
[2018-04-04 05:15] LABS: BASOPHILS # (AUTO) 0.2 (0.0-0.1); EOSINOPHILS # (AUTO) 0.2 (0.0-0.4); HEMATOCRIT 31.9 % (38.2-49.6); HEMOGLOBIN 9.9 g/dL (14.0-18.0); LYMPHOCYTES % 5.3 % (18.0-39.1); MEAN CORPUSCULAR HEMOGLOBIN 31.2 pg (28-32); MEAN CORPUSCULAR VOLUME 100.6 fL (81-99); MONOCYTES # (AUTO) 1.4 (0.2-0.8); MONOCYTES % 7.6 % (4.4-11.3); NEUTROPHILS # (AUTO) 14.6 (2.1-6.9); NEUTROPHILS % 77.9 % (38.7-80.0); PLATELET COUNT 257 x10e3/uL (140-360); RED BLOOD COUNT 3.17 x10e6/uL (4.3-5.7); RED CELL DISTRIBUTION WIDTH 14.9 % (11.7-14.4)
[2018-04-04 05:36] LABS: ANION GAP 18.3 mmol/L (8-16); CALCIUM 9.4 mg/dL (8.4-10.2); CREATININE, SERUM 4.06 mg/dL (0.72-1.25); POTASSIUM 4.3 mmol/L (3.5-5.1)
[2018-04-04] MEDS: HYDROMORPHONE 100 ML IV PRN (07:15)
[2018-04-04] MEDS ORDERED: ALBUMIN 25% 12.5GM 0.25 GM/ML BTL IV ONE (08:00)
[2018-04-04] MEDS ORDERED: BUMETANIDE INJ 0.25MG/ML 4ML VIAL IV ONE (08:00)
[2018-04-04] MEDS: PANTOPRAZOLE 40 MG 10ML VIAL IV SCH (08:21)
[2018-04-04] MEDS: METOCLOPRAMIDE HCL 10 MG/2ML VIAL IV SCH ×3 (08:21→22:40)
[2018-04-04] MEDS: MIDODRINE 2.5 MG TAB PO SCH ×3 (08:21→16:59)
[2018-04-04] MEDS: ASPIRIN 81 MG CHEW TAB PO SCH (08:22)
[2018-04-04] MEDS: VANCOMYCIN 1GM/NS 250 ML 250 ML IV SCH (08:22)
[2018-04-04] MEDS: NABUMETONE 750 MG PO SCH ×2 (08:37→14:39)
[2018-04-04] MEDS: CHOLECALCIFEROL 1,000 UNIT TAB PO SCH (08:37)
[2018-04-04] MEDS: GLUCOSAMINE SULFATE 500 MG PO SCH (08:37)
[2018-04-04] MEDS: MULTIVITAMINS/MINERALS TAB PO SCH (08:37)
[2018-04-04] MEDS: CEFEPIME HCL 1 GM VIAL IV SCH (09:23)
[2018-04-04] MEDS: MICAFUNGIN SODIUM 100 ML IV SCH (11:19)
[2018-04-04] MEDS ORDERED: SODIUM CHLORIDE 0.9% 500ML 500 ML ONE (12:33)
--- NOTE | 2018-04-04 14:19 | Progress Note ---
DATE: CARDIOLOGY PROGRESS NOTE SUBJECTIVE: Patient is unable to report, intubated. OBJECTIVE/PHYSICAL EXAMINATION: VITAL SIGNS: Temperature 98.5, pulse 99, respiratory rate 24, blood pressure 106/69, oxygen saturation 96% on mechanical ventilator. GENERAL: Intubated, resting comfortably in bed, does not appear to be in any acute distress. NECK: Supple. LUNGS: Diminished anterior lower lobes, otherwise clear to auscultation. CARDIOVASCULAR: Irregular rate and rhythm. Normal S1 and S2. LOWER EXTREMITIES: 3+ pitting edema. CARDIOVASCULAR MEDICATIONS: Aspirin 81 mg p.o. daily, midodrine 10 mg p.o. t.i.d., norepinephrine IV titrate, Arixtra 10 mg subcutaneous daily, atorvastatin 20 p.o. nightly, vasopressin IV titrate, amiodarone IV titrate. LABS: WBC 18.72, hemoglobin 9.9, hematocrit 31.9, platelets 257,000. Sodium 136, potassium 4.3, BUN 56, creatinine 4.04, glucose 199, calcium 9.4. TELEMETRY: Atrial fibrillation. IMPRESSION: 1. Status post pulseless electrical activity arrest. 2. Septic shock, requiring vasopressors. 3. Suspected pulmonary emboli, unable to confirm due to inability to CT the patient. 4. Acute kidney injury, currently on hemodialysis. 5. Multifocal pneumonia with respiratory failure, on ventilator support. 6. Suspected aspiration anemia also . 7. Atrial fibrillation with rapid ventricular response, paroxysmal, atrial fibrillation, currently in atrial fibrillation. 8. Hypotension. 9. Diabetes mellitus. 10. Right lower extremity cellulitis. 11. Morbid obesity. RECOMMENDATION: Continue anticoagulation with Arixtra per hematology. Continue the above list of cardiac medications. Antimicrobial therapy per infectious disease. Maintain on telemetry. Ventilator management per pulmonary. Patient's prognosis is quite guarded. We will continue to follow and monitor very closely. Dictated by Sherrie Kumari NP Job#: [id number]
[2018-04-04] MEDS ORDERED: NOREPINEPHRINE 8 MG/D5W 250 ML 250 ML ONE (18:23)
[2018-04-04] MEDS: FONDAPARINUX SODIUM 10 MG/0.8 ML SYR SQ SCH (22:40)
[2018-04-04] MEDS: ATORVASTATIN 20 MG TAB PO SCH (22:40)
[2018-04-04] MEDS: INSULIN DETEMIR 100 UNIT/ML PEN SQ SCH (22:41)
[2018-04-05] VITALS (84 sets, daily range): BP systolic 75–144; BP diastolic 39–68
[2018-04-05] MEDS: INSULIN LISPRO 100 UNIT/1 ML 3ML VIAL SQ SCH ×5 (00:35→23:59)
[2018-04-05] MEDS: VANCOMYCIN 250MG/5ML ORAL SOLN PO SCH ×4 (00:35→18:37)
[2018-04-05] MEDS: ALBUTEROL SULF 0.083% NEB SOLN 3 ML NEB NEB SCH ×4 (01:00→19:15)
[2018-04-05] MEDS: ACETYLCYSTEINE 20% INHAL SOLN 30 ML VIAL INH SCH ×4 (01:00→19:15)
[2018-04-05] MEDS: NOREPINEPHRINE INJ 4MG/4ML 8 MG in DEXTROSE 5% 250ML 250 ML IV PRN (04:25)
[2018-04-05 05:30] LABS: BASOPHILS # (AUTO) 0.1 (0.0-0.1); BASOPHILS % 0.7 % (0.0-1.0); EOSINOPHILS # (AUTO) 0.1 (0.0-0.4); EOSINOPHILS % 0.4 % (0.0-6.0); HEMOGLOBIN 9.8 g/dL (14.0-18.0); LYMPHOCYTES % 6.4 % (18.0-39.1); MEAN CORPUSCULAR HEMOGLOBIN 31.7 pg (28-32); MEAN CORPUSCULAR HGB CONC 31.6 g/dL (31-35); MEAN CORPUSCULAR VOLUME 100.3 fL (81-99); MONOCYTES # (AUTO) 1.1 (0.2-0.8); MONOCYTES % 7.2 % (4.4-11.3); NEUTROPHILS # (AUTO) 11.9 (2.1-6.9); NEUTROPHILS % 77.6 % (38.7-80.0); PLATELET COUNT 272 x10e3/uL (140-360); RED BLOOD COUNT 3.09 x10e6/uL (4.3-5.7)
[2018-04-05 05:50] LABS: ANION GAP 20.2 mmol/L (8-16); CALCIUM 9.5 mg/dL (8.4-10.2); CREATININE, SERUM 4.81 mg/dL (0.72-1.25); POTASSIUM 4.2 mmol/L (3.5-5.1)
--- NOTE | 2018-04-05 06:07 | Diagnostic Imaging Report ---
EXAM: CHEST SINGLE (PORTABLE), AP 1 view INDICATION: Intubated COMPARISON: AP view of the chest April 02, 2018 FINDINGS: See impression IMPRESSION: Very limited exam Tip of hemodialysis catheter and central line in the expected location of the distal superior vena cava. Nasal/orogastric tube in expected location of the proximal stomach. Endotracheal tube out of field of view. Incomplete evaluation of the heart and lungs, grossly stable. Signed by: Dr. Akosua Blunt M.D. on 04/05/2018 6:04 AM
[2018-04-05 07:42] LABS: BAND NEUTROPHILS % (MANUAL) 1 %; LYMPHOCYTES % (MANUAL) 6 % (19-48); METAMYELOCYTES % (MANUAL) 1 % (0-0); MONOCYTES % (MANUAL) 10 % (3.4-9.0); MYELOCYTES % (MANUAL) 1 % (0-0); NEUTROPHILS % (MANUAL) 81 % (40-74)
[2018-04-05 07:43] LABS: HYPOCHROMASIA SLIGHT; POIKILOCYTOSIS SLIGHT
[2018-04-05 07:44] LABS: ANISOCYTOSIS SLIGHT; PLATELET ESTIMATE ADEQUATE; RBC MORPHOLOGY COMMENT NORMAL
[2018-04-05 07:45] LABS: PLATELET MORPHOLOGY COMMENT FEW LARGE
[2018-04-05] MEDS: NABUMETONE 750 MG PO SCH ×2 (08:09→17:00)
[2018-04-05] MEDS: GLUCOSAMINE SULFATE 500 MG PO SCH (08:09)
[2018-04-05] MEDS: CHOLECALCIFEROL 1,000 UNIT TAB PO SCH (08:09)
[2018-04-05] MEDS: MULTIVITAMINS/MINERALS TAB PO SCH (08:09)
[2018-04-05] MEDS: VANCOMYCIN 1GM/NS 250 ML 250 ML IV SCH (09:00)
[2018-04-05] MEDS: AMIODARONE HCL 900 MG in DEXTROSE 5 % 500ML BOTTLE 500 ML IV SCH (09:33)
[2018-04-05] MEDS: CEFEPIME HCL 1 GM VIAL IV SCH (09:40)
[2018-04-05] MEDS: MIDODRINE 2.5 MG TAB PO SCH ×3 (09:40→17:27)
[2018-04-05] MEDS: PANTOPRAZOLE 40 MG 10ML VIAL IV SCH (09:40)
[2018-04-05] MEDS: METOCLOPRAMIDE HCL 10 MG/2ML VIAL IV SCH ×3 (09:40→20:55)
[2018-04-05] MEDS: ASPIRIN 81 MG CHEW TAB PO SCH (09:41)
[2018-04-05] MEDS: MICAFUNGIN SODIUM 100 ML IV SCH (10:30)
[2018-04-05] MEDS ORDERED: MANNITOL 25% 12.5GM/50 ML VIAL IV PRN (11:30)
[2018-04-05] MEDS ORDERED: SODIUM CHLORIDE 0.9% 250ML 500 ML IV PRN (11:30)
[2018-04-05] MEDS ORDERED: ALBUMIN 25% 12.5GM 0.25 GM/ML BTL IV PRN (11:30)
[2018-04-05] MEDS ORDERED: SODIUM CHLORIDE 0.9% 1000ML 2,000 ML IV PRN (11:30)
[2018-04-05] MEDS ORDERED: HEPARIN SOD (PORCINE) 1000 UNIT/ML SDV IV PRN (11:30)
--- NOTE | 2018-04-05 18:34 | Progress Note ---
DATE: April 05, 2018 CARDIOLOGY PROGRESS NOTE SUBJECTIVE: Patient remains intubated. He is unresponsive off sedation. He continues to require Levophed 6 mcg per minute and vasopressin 0.07 units per minute for blood pressure support. Amiodarone 1 mg per minute is running, and patient continues to require significant ventilatory support with an FIO2 of 70% and PEEP of 18. OBJECTIVE VITAL SIGNS: Temperature 99.3 degrees, pulse 72, respiratory rate 23, blood pressure 122/64, oxygen saturation 95% on mechanical ventilation. GENERAL: A morbidly obese gentleman in no acute distress, intubated, not responsive. LUNGS: Clear to auscultation bilaterally. No wheezes or crackles. CARDIOVASCULAR: Normal rate, regular rhythm. No murmur. Normal S1 and S2. ABDOMEN: Soft. EXTREMITIES: 2+ pitting edema is present. CARDIAC MEDICATIONS 1. Midodrine 10 mg p.o. t.i.d. 2. Aspirin 81 mg p.o. daily. 3. Levophed 6 mcg per minute . 4. Fondaparinux 10 mg subcutaneous q.24 h. 5. Atorvastatin 20 mg p.o. nightly. 6. Vasopressin 0.07 units per minute. 7. Amiodarone 1 mg per minute. LABS: WBC 15.35, hemoglobin 9.8, hematocrit 31, platelets 272. Sodium 136, potassium 4.2, chloride 99, CO2 21, BUN 69, creatinine 4.81. TELEMETRY: Normal sinus rhythm. IMPRESSION 1. Status post pulseless electrical activity arrest. 2. Septic shock requiring vasopressor support. 3. Suspected pulmonary embolus. Unable to confirm due to inability to CT patient. 4. Acute kidney injury, currently on hemodialysis. 5. Multifocal pneumonia. 6. Acute respiratory failure on ventilator support. 7. Suspect aspiration pneumonia. 8. Paroxysmal atrial fibrillation, currently sinus rhythm. 9. Diabetes mellitus. 10. Hdotz-po-qqzkmmg diastolic heart failure. 11. Hypertension, currently hypotensive as above. RECOMMENDATIONS: Anticoagulation per Hematology. Patient is on Arixtra. Antibiotics per Infectious Disease. Monitor patient on telemetry. Continue amiodarone. Volume management per Nephrology given acute kidney injury. Ultrafiltration as tolerated. Attempt to wean pressors with MAP above 65. Ventilatory management per Pulmonary. The patient's prognosis remains guarded. Patient has been off sedation since Thursday. We will monitor patient's mental status. Thank you for this consult. We will continue to follow. Job#: [id number] EV
[2018-04-05] MEDS: ATORVASTATIN 20 MG TAB PO SCH (20:55)
[2018-04-05] MEDS: INSULIN DETEMIR 100 UNIT/ML PEN SQ SCH (20:58)
[2018-04-06] VITALS (96 sets, daily range): BP systolic 81–151; BP diastolic 49–83
[2018-04-06] MEDS: VANCOMYCIN 250MG/5ML ORAL SOLN PO SCH ×2 (00:03→05:49)
[2018-04-06] MEDS: AMIODARONE HCL 900 MG in DEXTROSE 5 % 500ML BOTTLE 500 ML IV SCH (01:15)
[2018-04-06] MEDS: ALBUTEROL SULF 0.083% NEB SOLN 3 ML NEB NEB SCH ×4 (01:17→19:05)
[2018-04-06] MEDS: ACETYLCYSTEINE 20% INHAL SOLN 30 ML VIAL INH SCH ×3 (01:17→19:05)
[2018-04-06] MEDS: INSULIN LISPRO 100 UNIT/1 ML 3ML VIAL SQ SCH ×3 (05:51→18:48)
[2018-04-06 05:54] LABS: BASOPHILS # (AUTO) 0.1 (0.0-0.1); BASOPHILS % 0.9 % (0.0-1.0); EOSINOPHILS # (AUTO) 0.1 (0.0-0.4); EOSINOPHILS % 1.2 % (0.0-6.0); HEMATOCRIT 28.3 % (38.2-49.6); HEMOGLOBIN 8.9 g/dL (14.0-18.0); LYMPHOCYTES # (AUTO) 0.9 (1.0-3.2); LYMPHOCYTES % 7.9 % (18.0-39.1); MEAN CORPUSCULAR HEMOGLOBIN 31.7 pg (28-32); MEAN CORPUSCULAR HGB CONC 31.4 g/dL (31-35); MEAN CORPUSCULAR VOLUME 100.7 fL (81-99); MONOCYTES # (AUTO) 0.9 (0.2-0.8); MONOCYTES % 8.1 % (4.4-11.3); NEUTROPHILS # (AUTO) 8.3 (2.1-6.9); NEUTROPHILS % 74.9 % (38.7-80.0); PLATELET COUNT 250 x10e3/uL (140-360); RED BLOOD COUNT 2.81 x10e6/uL (4.3-5.7)
[2018-04-06 06:16] LABS: CALCIUM 9.5 mg/dL (8.4-10.2); CREATININE, SERUM 4.02 mg/dL (0.72-1.25)
[2018-04-06] MEDS: MIDODRINE 2.5 MG TAB PO SCH ×3 (08:45→15:57)
[2018-04-06] MEDS: MULTIVITAMINS/MINERALS TAB PO SCH (09:00)
[2018-04-06] MEDS: NABUMETONE 750 MG PO SCH ×2 (09:00→15:59)
[2018-04-06] MEDS: CHOLECALCIFEROL 1,000 UNIT TAB PO SCH (09:00)
[2018-04-06] MEDS: GLUCOSAMINE SULFATE 500 MG PO SCH (09:00)
[2018-04-06] MEDS: ASPIRIN 81 MG CHEW TAB PO SCH (09:00)
[2018-04-06] MEDS: PANTOPRAZOLE 40 MG 10ML VIAL IV SCH (09:58)
[2018-04-06] MEDS: CEFEPIME HCL 1 GM VIAL IV SCH (09:58)
[2018-04-06] MEDS: METOCLOPRAMIDE HCL 10 MG/2ML VIAL IV SCH ×3 (09:58→20:35)
[2018-04-06 13:23] LABS: ABG HCO3 25 mmol/L (23-28); ABG PCO2 51 mmHg (41-51); ABG PH 7.29 (7.31-7.41); ABG PO2 79 mmHg (80-105)
--- NOTE | 2018-04-06 15:26 | Progress Note ---
DATE: April 06, 2018 CARDIOLOGY PROGRESS NOTE SUBJECTIVE: Patient remains intubated. He is unresponsive off sedation. He has decreased pressor requirements, now only on vasopressin 0.05 units per minute. Levophed has been weaned off. He continues on amiodarone drip at 0.5 mg per minute. His ventilatory requirements are improving, now only on a PEEP of 16 and FiO2 of 60%. OBJECTIVE VITAL SIGNS: Temperature 99.5 degrees, pulse 102, respiratory rate 26, blood pressure 115/71, oxygen saturation 92% on mechanical ventilation. GENERAL: A morbidly obese gentleman in no acute distress, intubated, not responsive. LUNGS: Clear to auscultation bilaterally. No wheezes or crackles. CARDIOVASCULAR: Tachycardic but regular. No murmur. Normal S1 and S2. ABDOMEN: Soft. EXTREMITIES: There is 2+ pitting edema present. CARDIAC MEDICATIONS 1. Midodrine 10 mg p.o. t.i.d. 2. Atorvastatin 20 mg p.o. nightly. 3. Vasopressin 0.05 units per minute. 4. Amiodarone 0.5 mg per minute. 5. Aspirin 81 mg p.o. daily. LABS: WBC 11.08, hemoglobin 8.9, hematocrit 28.3, platelets 250. Sodium 138, potassium 4, chloride 100, CO2 25, BUN 55, creatinine 4.02. TELEMETRY: Sinus tachycardia. IMPRESSION 1. Status post pulseless electrical activity arrest. 2. Septic shock requiring vasopressor support. 3. Suspected pulmonary embolus, unable to confirm due to inability to CT patient. 4. Acute kidney injury, currently on hemodialysis. 5. Multifocal pneumonia. 6. Acute respiratory failure on ventilator support. 7. Suspect aspiration pneumonia. 8. Paroxysmal atrial fibrillation, currently in sinus rhythm. 9. Diabetes mellitus. 10. Xnlgk-kr-clvsduc diastolic heart failure. 11. Hypertension, currently hypotensive as above. RECOMMENDATIONS: Start p.o. amiodarone. The amiodarone drip can be stopped. Anticoagulation per hematology. Note Arixtra has been discontinued. Volume management per nephrology given acute kidney injury. The patient is tolerating ultrafiltration. Wean pressors with goal MAP above 65. Ventilator management per pulmonary. We will monitor the patient's mental status as he has been off sedation since Thursday. The patient's prognosis remains guarded. Thank you for this consult. We will continue to follow. Job#: [id number] AMY
[2018-04-06] MEDS: AMIODARONE HCL 200 MG TAB PO SCH (15:58)
[2018-04-06] MEDS: ATORVASTATIN 20 MG TAB PO SCH (20:35)
[2018-04-06] MEDS: INSULIN DETEMIR 100 UNIT/ML PEN SQ SCH (20:39)
[2018-04-06] MEDS: FONDAPARINUX SODIUM 10 MG/0.8 ML SYR SQ SCH (20:49)
[2018-04-07] VITALS (109 sets, daily range): BP systolic 81–139; BP diastolic 44–86
[2018-04-07] MEDS: INSULIN LISPRO 100 UNIT/1 ML 3ML VIAL SQ SCH ×4 (00:58→18:05)
[2018-04-07] MEDS: ALBUTEROL SULF 0.083% NEB SOLN 3 ML NEB NEB SCH ×4 (02:15→18:45)
[2018-04-07 05:28] LABS: BASOPHILS # (AUTO) 0.2 (0.0-0.1); BASOPHILS % 1.3 % (0.0-1.0); EOSINOPHILS # (AUTO) 0.2 (0.0-0.4); EOSINOPHILS % 1.8 % (0.0-6.0); HEMOGLOBIN 9.8 g/dL (14.0-18.0); LYMPHOCYTES % 7.6 % (18.0-39.1); MEAN CORPUSCULAR HEMOGLOBIN 31.1 pg (28-32); MEAN CORPUSCULAR HGB CONC 31.6 g/dL (31-35); MEAN CORPUSCULAR VOLUME 98.4 fL (81-99); MONOCYTES # (AUTO) 1.2 (0.2-0.8); MONOCYTES % 9.4 % (4.4-11.3); NEUTROPHILS # (AUTO) 9.1 (2.1-6.9); NEUTROPHILS % 72.6 % (38.7-80.0); PLATELET COUNT 287 x10e3/uL (140-360); RED BLOOD COUNT 3.15 x10e6/uL (4.3-5.7); RED CELL DISTRIBUTION WIDTH 15.4 % (11.7-14.4)
[2018-04-07 05:46] LABS: ANION GAP 17.8 mmol/L (8-16); CALCIUM 9.7 mg/dL (8.4-10.2); CREATININE, SERUM 4.65 mg/dL (0.72-1.25); POTASSIUM 3.8 mmol/L (3.5-5.1)
--- NOTE | 2018-04-07 06:05 | Diagnostic Imaging Report ---
CHEST SINGLE (PORTABLE), 04/07/2018 7:00 AM Technique: CHEST SINGLE (PORTABLE) Comparison: 04/05/2018 Clinical history: Intubated Findings: See Impression Impression: Very limited exam. Right costophrenic angle is excluded. 1. Lines/Tubes: Stable right IJ sheath over the SVC, right IJ CVC, ET tube at the thoracic inlet, and visualized NG tube which is poorly visualized distally. 2. Stable enlarged cardiomediastinal silhouette. 3. Motion artifact with bilateral opacities likely a component of underlying edema and layering fluid. Signed by: Dr Piedad Purdy MD on 04/07/2018 6:02 AM
[2018-04-07] MEDS: ACETYLCYSTEINE 20% INHAL SOLN 30 ML VIAL INH SCH ×2 (07:45→18:45)
[2018-04-07 08:13] LABS: EOSINOPHILS % (MANUAL) 3 % (0-7); LYMPHOCYTES % (MANUAL) 6 % (19-48); METAMYELOCYTES % (MANUAL) 3 % (0-0); MONOCYTES % (MANUAL) 8 % (3.4-9.0); MYELOCYTES % (MANUAL) 1 % (0-0); NEUTROPHILS % (MANUAL) 78 % (40-74)
[2018-04-07 08:14] LABS: HYPOCHROMASIA SLIGHT; PLATELET ESTIMATE ADEQUATE; PLATELET MORPHOLOGY COMMENT NORMAL; RBC MORPHOLOGY COMMENT NORMAL
[2018-04-07] MEDS: NABUMETONE 750 MG PO SCH ×2 (08:25→16:04)
[2018-04-07] MEDS: GLUCOSAMINE SULFATE 500 MG PO SCH (08:25)
[2018-04-07] MEDS: CHOLECALCIFEROL 1,000 UNIT TAB PO SCH (08:26)
[2018-04-07] MEDS: MULTIVITAMINS/MINERALS TAB PO SCH (08:26)
[2018-04-07] MEDS ORDERED: NOREPINEPHRINE 8 MG/D5W 250 ML 250 ML ONE (08:47)
[2018-04-07] MEDS: AMIODARONE HCL 200 MG TAB PO SCH ×2 (09:47→16:33)
[2018-04-07] MEDS: MIDODRINE 2.5 MG TAB PO SCH ×3 (09:47→16:33)
[2018-04-07] MEDS ORDERED: VANCOMYCIN 1GM/NS 250 ML 250 ML IV SCH (13:00)
[2018-04-07] MEDS: METOCLOPRAMIDE HCL 10 MG/2ML VIAL IV SCH ×3 (13:09→21:30)
[2018-04-07] MEDS: PANTOPRAZOLE 40 MG 10ML VIAL IV SCH (13:09)
[2018-04-07] MEDS: CEFEPIME HCL 1 GM VIAL IV SCH (13:09)
--- NOTE | 2018-04-07 14:29 | Progress Note ---
DATE: April 07, 2018 CARDIOLOGY PROGRESS NOTE SUBJECTIVE: Patient remains intubated. He is unresponsive off sedation. He is on vasopressin 0.04 units per minute and had 5 liters removed with hemodialysis. His ventilatory requirements continue to improve, now down to FIO2 of 50% and PEEP of 12. OBJECTIVE VITAL SIGNS: Temperature 99.5 degrees, pulse 113, respiratory rate 26, blood pressure 114/75, oxygen saturation 92% on mechanical ventilation. GENERAL: A morbidly obese gentleman in no acute distress, intubated, not responsive. LUNGS: Clear to auscultation bilaterally on anterior lung rodriguez. No wheezes or crackles. CARDIOVASCULAR: Tachycardic. Irregularly irregular. No murmur. Normal S1 and S2. ABDOMEN: Soft. EXTREMITIES: 2+ pitting edema is present but improving. CARDIAC MEDICATIONS 1. Midodrine 10 mg p.o. t.i.d. 2. Amiodarone 200 mg p.o. b.i.d. 3. Atorvastatin 20 mg p.o. nightly. 4. Vasopressin 0.04 units per minute. 5. Fondaparinux 10 mg subcutaneous daily. LABS: WBC 12.49, hemoglobin 9.8, hematocrit 31, platelets 287. Sodium 137, potassium 3.8, chloride 99, CO2 24, BUN 75, creatinine 4.65. CHEST X-RAY: Stable enlarged cardiomediastinal silhouette. Motion artefact with bilateral opacities likely a component of underlying edema and layering fluid. TELEMETRY: Atrial fibrillation with rapid ventricular response. IMPRESSION 1. Status post pulseless electrical activity arrest. 2. Septic shock requiring vasopressor support. 3. Suspected pulmonary embolus. Unable to confirm due to inability to CT patient. 4. Acute kidney injury, currently on hemodialysis. 5. Multifocal pneumonia. 6. Suspect aspiration pneumonia. 7. Acute respiratory failure on ventilator support. 8. Paroxysmal atrial fibrillation. 9. Diabetes mellitus. 10. Enzyh-wg-kvxdknb diastolic heart failure. 11. Hypertension, currently hypotensive as above. RECOMMENDATIONS: Continue current cardiac medications. Wean pressors as tolerated. Anticoagulation per Hematology. Volume management per Nephrology given acute kidney injury. He is tolerating volume removal with improving oxygen requirements. Ventilatory management per Pulmonary. Monitor patient's mental status as he has been off sedation since Thursday. His prognosis remains guarded. Thank you for this consult. We will continue to follow. Job#: [id number] EV
[2018-04-07] MEDS: ATORVASTATIN 20 MG TAB PO SCH (21:30)
[2018-04-07] MEDS: INSULIN DETEMIR 100 UNIT/ML PEN SQ SCH (21:31)
[2018-04-08] VITALS (128 sets, daily range): BP systolic 79–140; BP diastolic 38–94
[2018-04-08] MEDS: INSULIN LISPRO 100 UNIT/1 ML 3ML VIAL SQ SCH ×4 (00:01→18:00)
[2018-04-08] MEDS: ALBUTEROL SULF 0.083% NEB SOLN 3 ML NEB NEB SCH ×4 (02:20→19:00)
[2018-04-08] MEDS: NABUMETONE 750 MG PO SCH ×2 (06:55→15:25)
[2018-04-08] MEDS: CHOLECALCIFEROL 1,000 UNIT TAB PO SCH (06:55)
[2018-04-08] MEDS: MULTIVITAMINS/MINERALS TAB PO SCH (06:55)
[2018-04-08] MEDS: GLUCOSAMINE SULFATE 500 MG PO SCH (06:55)
[2018-04-08] MEDS: ACETYLCYSTEINE 20% INHAL SOLN 30 ML VIAL INH SCH ×2 (07:23→18:30)
[2018-04-08] MEDS: METOCLOPRAMIDE HCL 10 MG/2ML VIAL IV SCH ×3 (08:15→20:37)
[2018-04-08] MEDS: AMIODARONE HCL 200 MG TAB PO SCH ×2 (08:15→16:42)
[2018-04-08] MEDS: PANTOPRAZOLE 40 MG 10ML VIAL IV SCH (08:15)
[2018-04-08] MEDS: MIDODRINE 2.5 MG TAB PO SCH ×3 (08:15→16:42)
[2018-04-08] MEDS: CEFEPIME HCL 1 GM VIAL IV SCH (08:15)
[2018-04-08] MEDS: BALSAM PERU/CASTOR OIL 60 GM OINT...G. TP SCH (10:16)
[2018-04-08] MEDS: FONDAPARINUX SODIUM 10 MG/0.8 ML SYR SQ SCH (10:23)
[2018-04-08] MEDS: ASPIRIN 81 MG CHEW TAB PO SCH (10:23)
--- NOTE | 2018-04-08 13:44 | Progress Note ---
DATE: April 08, 2018 CARDIOLOGY PROGRESS NOTE SUBJECTIVE: The patient remains intubated. He is not responsive off sedation. His pressor requirements continue to decrease. Now, only on vasopressin 0.01 units per minute and ventilatory requirements are also somewhat improved, now down to a PEEP of 10 with an FIO2 of 60%. Planned for tracheostomy on Thursday. OBJECTIVE VITALS: Temperature 98.2 degrees, pulse 106, respiratory rate 24, blood pressure 128/56, and oxygen saturation 93% on mechanical ventilation. GENERAL: Morbidly obese gentleman in no acute distress. Intubated and not responsive. LUNGS: Clear to auscultation in anterior lung rodriguez. No wheezes or crackles. CARDIOVASCULAR: Tachycardia. Irregularly irregular. No murmur. Normal S1 and S2. ABDOMEN: Soft. EXTREMITIES: Two plus pitting edema remains. CARDIAC MEDICATIONS 1. Fondaparinux 10 mg subcutaneous daily. 2. Aspirin 81 mg p.o. daily. 3. Amiodarone 200 mg p.o. b.i.d. 4. Midodrine 10 mg p.o. t.i.d. 5. Atorvastatin 20 mg p.o. at bedtime. LABS: None today. Telemetry with atrial fibrillation with rapid ventricular response. IMPRESSION 1. Status post pulseless electrical activity arrest. 2. Septic shock requiring vasopressor support. 3. Suspected pulmonary embolus: Unable to confirm due to inability to do computerized tomography. 4. Acute kidney injury: Currently, on hemodialysis. 5. Multifocal pneumonia. 6. Suspected aspiration pneumonia. 7. Acute respiratory failure: On ventilator support. 8. Paroxysmal atrial fibrillation. 9. Diabetes mellitus. 10. Qfcop-se-yoqckbk diastolic heart failure. 11. Hypertension: Currently, hypotensive as above. RECOMMENDATIONS: Start low-dose beta blockade as pressure requirements have decreased. Continue current cardiac medications otherwise. Anticoagulation per hematology. Volume management per nephrology given acute kidney injury. Ventilator management per pulmonary. Monitor the patient's mental status as he has been off sedation since Thursday. His prognosis remains guarded. Thank you for this consult. We will continue to follow. Job#: [id number] NC
[2018-04-08] MEDS ORDERED: METOPROLOL TARTRATE INJ 1 MG/ML VIAL IV ONE (18:00)
[2018-04-08] MEDS: ATORVASTATIN 20 MG TAB PO SCH (20:37)
[2018-04-08] MEDS: INSULIN DETEMIR 100 UNIT/ML PEN SQ SCH (20:41)
[2018-04-09] VITALS (93 sets, daily range): BP systolic 80–140; BP diastolic 49–92
[2018-04-09] MEDS: INSULIN LISPRO 100 UNIT/1 ML 3ML VIAL SQ SCH ×4 (00:38→18:00)
[2018-04-09] MEDS: ALBUTEROL SULF 0.083% NEB SOLN 3 ML NEB NEB SCH ×4 (02:45→18:47)
[2018-04-09 06:13] LABS: BASOPHILS # (AUTO) 0.2 (0.0-0.1); BASOPHILS % 1.5 % (0.0-1.0); EOSINOPHILS # (AUTO) 0.3 (0.0-0.4); EOSINOPHILS % 2.6 % (0.0-6.0); HEMATOCRIT 32.3 % (38.2-49.6); HEMOGLOBIN 10.2 g/dL (14.0-18.0); LYMPHOCYTES # (AUTO) 1.1 (1.0-3.2); LYMPHOCYTES % 8.5 % (18.0-39.1); MEAN CORPUSCULAR HEMOGLOBIN 30.7 pg (28-32); MEAN CORPUSCULAR HGB CONC 31.6 g/dL (31-35); MEAN CORPUSCULAR VOLUME 97.3 fL (81-99); MONOCYTES # (AUTO) 1.4 (0.2-0.8); NEUTROPHILS # (AUTO) 8.6 (2.1-6.9); NEUTROPHILS % 65.6 % (38.7-80.0); PLATELET COUNT 282 x10e3/uL (140-360); RED BLOOD COUNT 3.32 x10e6/uL (4.3-5.7); RED CELL DISTRIBUTION WIDTH 15.2 % (11.7-14.4)
[2018-04-09 06:38] LABS: CALCIUM 10.2 mg/dL (8.4-10.2); CREATININE, SERUM 4.31 mg/dL (0.72-1.25)
[2018-04-09] MEDS: ACETYLCYSTEINE 20% INHAL SOLN 30 ML VIAL INH SCH ×2 (07:22→18:47)
[2018-04-09 08:38] LABS: BAND NEUTROPHILS % (MANUAL) 2 %; EOSINOPHILS % (MANUAL) 2 % (0-7); LYMPHOCYTES % (MANUAL) 14 % (19-48); METAMYELOCYTES % (MANUAL) 2 % (0-0); MONOCYTES % (MANUAL) 9 % (3.4-9.0); MYELOCYTES % (MANUAL) 4 % (0-0); NEUTROPHILS % (MANUAL) 67 % (40-74); NUCLEATED RED BLOOD CELLS 1
[2018-04-09 08:39] LABS: HYPOCHROMASIA SLIGHT; PLATELET ESTIMATE ADEQUATE; PLATELET MORPHOLOGY COMMENT NORMAL; POIKILOCYTOSIS SLIGHT; RBC MORPHOLOGY COMMENT NORMAL
[2018-04-09] MEDS: NABUMETONE 750 MG PO SCH ×2 (09:00→17:00)
[2018-04-09] MEDS: GLUCOSAMINE SULFATE 500 MG PO SCH (09:00)
[2018-04-09] MEDS: FONDAPARINUX SODIUM 10 MG/0.8 ML SYR SQ SCH (10:00)
[2018-04-09] MEDS: PANTOPRAZOLE 40 MG 10ML VIAL IV SCH (10:00)
[2018-04-09] MEDS: METOCLOPRAMIDE HCL 10 MG/2ML VIAL IV SCH ×3 (10:00→21:25)
[2018-04-09] MEDS: MULTIVITAMINS/MINERALS TAB PO SCH (10:00)
[2018-04-09] MEDS: MIDODRINE 2.5 MG TAB PO SCH ×3 (10:00→18:45)
[2018-04-09] MEDS: CHOLECALCIFEROL 1,000 UNIT TAB PO SCH (10:00)
[2018-04-09] MEDS: AMIODARONE HCL 200 MG TAB PO SCH ×2 (10:00→18:45)
[2018-04-09] MEDS: ASPIRIN 81 MG CHEW TAB PO SCH (10:00)
[2018-04-09] MEDS: BALSAM PERU/CASTOR OIL 60 GM OINT...G. TP SCH (11:20)
[2018-04-09] MEDS: CEFEPIME HCL 1 GM VIAL IV SCH (13:14)
[2018-04-09] MEDS: EPOETIN ALFA 10000 UNIT/ML VIAL SC SCH (13:56)
--- NOTE | 2018-04-09 14:51 | Progress Note ---
DATE: April 09, 2018 CARDIOLOGY PROGRESS NOTE SUBJECTIVE: The patient remains intubated. He is not responsive off sedation. He continues to have improvement in his ventilatory requirements, now down to an FIO2 of 60% and a PEEP of 8. He remains on vasopressin 0.04 units per minute at the moment in order to tolerate dialysis with plan of 4 L volume removal. OBJECTIVE VITALS: Temperature 99.3 degrees, pulse 114, respiratory rate 24, blood pressure 112/92, oxygen saturation 94% on mechanical ventilation. GENERAL: Morbidly obese gentleman in no acute distress. Intubated and unresponsive. LUNGS: Clear to auscultation in anterior lung rodriguez. No wheezed or crackles. CARDIOVASCULAR: Tachycardic. Irregularly irregular. No murmur. Normal S1 and S2. ABDOMEN: Soft. EXTREMITIES: Two plus pitting edema that is improving. CARDIAC MEDICATIONS 1. Midodrine 10 mg p.o. t.i.d. 2. Fondaparinux 10 mg subcutaneous daily. 3. Amiodarone 200 mg p.o. b.i.d. 4. Aspirin 81 mg p.o. daily. 5. Atorvastatin 20 mg p.o. at bedtime. LABS: WBC 13.14, hemoglobin 10.2, hematocrit 32.3, and platelets 282,000. Sodium 134, potassium 4, chloride 96, CO2 22, BUN 91, creatinine 4.31. Telemetry with atrial fibrillation with rapid ventricular response. IMPRESSION 1. Status post pulseless electrical activity arrest. 2. Septic shock requiring vasopressor support. 3. Suspected pulmonary embolus: Unable to confirm due to inability to computerized tomography the patient. 4. Acute kidney injury: Currently, on hemodialysis. 5. Multifocal pneumonia. 6. Suspected aspiration pneumonia. 7. Acute respiratory failure, on ventilator support. 8. Paroxysmal atrial fibrillation. 9. Diabetes mellitus. 10. Mxdue-sw-cjlrnew diastolic heart failure. 11. Hypertension, currently hypotension as above. RECOMMENDATIONS: Continue current cardiac medications. Anticoagulation per hematology. Volume management per nephrology given acute kidney injury. They are attempting to pull fluid as the patient's blood pressure tolerates. Ventilator management per pulmonary. Given his prolonged intubation, he is planned for tracheostomy by Dr. Myles on Thursday. The patient's heart rate is borderline. We will not start scheduled beta blockade given his continued vasopressor requirement unless his heart rate worsens. Monitor mental status as the patient has been off sedation since last Thursday and he remains unresponsive. His prognosis is guarded. Thank you for this consult. We will continue to follow. Job#: [id number] RI
--- NOTE | 2018-04-09 16:20 | Progress Note ---
DATE: SUBJECTIVE: Mr. Cerrato remains in the intensive care unit on the ventilator. Plan for him to have a trach. Apparently, the patient is still noncommunicative, on hemodialysis. The patient is still on low-dose vasopressors. MEDICATION LIST: Reviewed. OBJECTIVE GENERAL: On the ventilator. VITAL SIGNS: Afebrile. HEENT: Oral intubation. CHEST: Distant breath sounds. COR: Distant heart sounds. ABDOMEN: Soft, obese. No tenderness. EXTREMITIES: No edema. IMPRESSION 1. Status post pulseless electrical activity arrest. 2. Sepsis and septic shock, on vasopressors. Sepsis resolved, remains on vasopressors low-dose. 3. Pulmonary embolism. 4. Acute renal injury, on dialysis. 5. Pneumonia, resolved, status post aspiration. Patient has been on more than 3 weeks of antibiotic, will discontinue. 6. Diabetes. 7. Phfwd-cr-oamllzx congestive heart failure. 8. All his cultures have been negative so far. 1. Anemia of chronic disease. 2. Mild leukocytosis hovering around 11,000 to 13,000. 3. We will discontinue IV antibiotic and we will order liver enzyme, amylase, lipase and we will check CBC and we will see how she is going to do clinically. Job#: [id number] VAS
[2018-04-09] MEDS: INSULIN DETEMIR 100 UNIT/ML PEN SQ SCH (21:25)
[2018-04-09] MEDS: ATORVASTATIN 20 MG TAB PO SCH (21:25)
[2018-04-10] VITALS (93 sets, daily range): BP systolic 83–131; BP diastolic 46–109
[2018-04-10] MEDS: INSULIN LISPRO 100 UNIT/1 ML 3ML VIAL SQ SCH ×4 (00:54→18:17)
[2018-04-10] MEDS: ALBUTEROL SULF 0.083% NEB SOLN 3 ML NEB NEB SCH ×4 (02:30→19:00)
[2018-04-10] MEDS: METOPROLOL TARTRATE INJ 1 MG/ML VIAL IV PRN (05:32)
[2018-04-10 05:53] LABS: BASOPHILS # (AUTO) 0.2 (0.0-0.1); BASOPHILS % 1.2 % (0.0-1.0); EOSINOPHILS # (AUTO) 0.3 (0.0-0.4); EOSINOPHILS % 1.9 % (0.0-6.0); HEMATOCRIT 31.8 % (38.2-49.6); HEMOGLOBIN 10.3 g/dL (14.0-18.0); LYMPHOCYTES # (AUTO) 1.1 (1.0-3.2); LYMPHOCYTES % 7.6 % (18.0-39.1); MEAN CORPUSCULAR HEMOGLOBIN 31.9 pg (28-32); MEAN CORPUSCULAR HGB CONC 32.4 g/dL (31-35); MEAN CORPUSCULAR VOLUME 98.5 fL (81-99); MONOCYTES # (AUTO) 1.4 (0.2-0.8); NEUTROPHILS # (AUTO) 9.5 (2.1-6.9); NEUTROPHILS % 68.2 % (38.7-80.0); PLATELET COUNT 274 x10e3/uL (140-360); RED BLOOD COUNT 3.23 x10e6/uL (4.3-5.7); RED CELL DISTRIBUTION WIDTH 15.3 % (11.7-14.4)
[2018-04-10 06:07] LABS: ANION GAP 16.8 mmol/L (8-16); CALCIUM 10.1 mg/dL (8.4-10.2); CREATININE, SERUM 3.33 mg/dL (0.72-1.25); POTASSIUM 3.8 mmol/L (3.5-5.1)
[2018-04-10] MEDS: ACETYLCYSTEINE 20% INHAL SOLN 30 ML VIAL INH SCH ×2 (06:42→19:00)
--- NOTE | 2018-04-10 08:02 | Diagnostic Imaging Report ---
EXAMINATION: CHEST SINGLE (PORTABLE) 04/10/2018 7:07 AM COMPARISON: 04/07/2018 and prior INDICATION: Pneumonia, ventilated DISCUSSION: LINES: Right IJ sheath with tip overlying the SVC, unchanged. Right internal jugular central venous catheter tip over the cavoatrial junction, unchanged. Endotracheal tube has its tip about 4 cm above the osmar. Enteric tube tip appears to course below the diaphragm, but the distal tip is not visualized. LUNGS: Low lung volumes with basilar atelectasis. PLEURA: Small pleural effusions are likely present. HEART AND MEDIASTINUM: Enlarged cardiac silhouette, unchanged. BONES AND SOFT TISSUES: No acute osseous lesion. The soft tissues are normal. IMPRESSION: Limited examination due to portable technique. Lines and tubes as above. Low lung volumes with basilar atelectasis and likely small pleural effusions. Sy Gonzalez MD Signed by: Dr. Sy Gonzalez M.D. on 04/10/2018 7:59 AM
[2018-04-10] MEDS: NABUMETONE 750 MG PO SCH ×2 (09:00→16:30)
[2018-04-10] MEDS: GLUCOSAMINE SULFATE 500 MG PO SCH (09:00)
[2018-04-10] MEDS: PANTOPRAZOLE 40 MG 10ML VIAL IV SCH (09:18)
[2018-04-10] MEDS: AMIODARONE HCL 200 MG TAB PO SCH ×2 (09:18→16:29)
[2018-04-10] MEDS: MIDODRINE 2.5 MG TAB PO SCH ×3 (09:18→16:29)
[2018-04-10] MEDS: ASPIRIN 81 MG CHEW TAB PO SCH (09:18)
[2018-04-10] MEDS: MULTIVITAMINS/MINERALS TAB PO SCH (09:18)
[2018-04-10] MEDS: BALSAM PERU/CASTOR OIL 60 GM OINT...G. TP SCH (09:18)
[2018-04-10] MEDS: METOCLOPRAMIDE HCL 10 MG/2ML VIAL IV SCH ×3 (09:18→21:19)
[2018-04-10] MEDS: CHOLECALCIFEROL 1,000 UNIT TAB PO SCH (09:18)
[2018-04-10] MEDS: FONDAPARINUX SODIUM 10 MG/0.8 ML SYR SQ SCH (09:18)
[2018-04-10] MEDS ORDERED: HEPARIN SOD (PORCINE) 5,000 UNIT/ML VIAL ONE (10:01)
[2018-04-10 11:29] LABS: BAND NEUTROPHILS % (MANUAL) 6 %; EOSINOPHILS % (MANUAL) 2 % (0-7); LYMPHOCYTES % (MANUAL) 14 % (19-48); METAMYELOCYTES % (MANUAL) 1 % (0-0); MONOCYTES % (MANUAL) 11 % (3.4-9.0); MYELOCYTES % (MANUAL) 2 % (0-0); NEUTROPHILS % (MANUAL) 64 % (40-74); PLATELET ESTIMATE ADEQUATE; PLATELET MORPHOLOGY COMMENT NORMAL; RBC MORPHOLOGY COMMENT NORMAL
--- NOTE | 2018-04-10 13:32 | Progress Note ---
DATE: April 10, 2018 CARDIOLOGY PROGRESS NOTE SUBJECTIVE: Remains intubated under current dialysis. Spontaneous eye opening. OBJECTIVE VITALS: Temperature 99.3, heart rate 113, respiratory rate 26, blood pressure 103/78, O2 sat 99%. GENERAL: Intubated and sedated. However, does open eyes when physically stimulated. CHEST: Coarse breath sounds. CARDIOVASCULAR: Regular rate and rhythm. Normal S1 and S2. ABDOMEN: Soft. Morbidly obese. EXTREMITIES: With edema of 1+. CARDIOVASCULAR MEDICATIONS 1. Midodrine 10 mg t.i.d. p.o. 2. Vasopressin 0.05. 3. Fondaparinux 10 mg subcutaneous daily. 4. Amiodarone 200 mg b.i.d. 5. Aspirin 81 mg daily. 6. Metoprolol tartrate 2.5 mg q.6 h. p.r.n. 7. Atorvastatin 20 mg at bedtime. White blood cells 13.8, hemoglobin 10.3 and platelets 274,000. INR 1.4. Creatinine 3.3, glucose 224, bicarbonate 24, potassium 3.8, sodium 135. ASSESSMENT 1. Status post pulseless electrical activity arrest. 2. Severe sepsis with septic shock, on vasopressor. 3. Pulmonary embolism. 4. Acute kidney injury, on dialysis. 5. Pneumonia, status post aspiration. 6. Diabetes mellitus. 7. Ragxe-ck-ajicwsx heart failure, diastolic. 8. History of hypertension. 9. Paroxysmal atrial fibrillation. RECOMMENDATIONS 1. Empirically being treated for pulmonary embolism. Unable to confirm due to inability to perform imaging at this point. 2. Continue current cardiovascular medications, including anticoagulation being managed by hematology. Volume management per nephrology. 3. Wean pressors as tolerated. 4. Low dose amiodarone and p.r.n. beta shruthi holding for significant RVR episodes more than 150. Currently stable. Job#: [id number] TATUM
[2018-04-10] MEDS: ATORVASTATIN 20 MG TAB PO SCH (21:19)
[2018-04-10] MEDS: INSULIN DETEMIR 100 UNIT/ML PEN SQ SCH (21:19)
[2018-04-11] VITALS (88 sets, daily range): BP systolic 74–136; BP diastolic 52–101
[2018-04-11] MEDS: ALBUTEROL SULF 0.083% NEB SOLN 3 ML NEB NEB SCH ×4 (01:00→19:30)
[2018-04-11] MEDS: INSULIN LISPRO 100 UNIT/1 ML 3ML VIAL SQ SCH ×6 (01:17→23:45)
[2018-04-11 06:03] LABS: BASOPHILS # (AUTO) 0.1 (0.0-0.1); BASOPHILS % 0.4 % (0.0-1.0); EOSINOPHILS # (AUTO) 0.3 (0.0-0.4); EOSINOPHILS % 1.7 % (0.0-6.0); HEMATOCRIT 34.7 % (38.2-49.6); HEMOGLOBIN 10.8 g/dL (14.0-18.0); LYMPHOCYTES # (AUTO) 1.4 (1.0-3.2); LYMPHOCYTES % 9.2 % (18.0-39.1); MEAN CORPUSCULAR HEMOGLOBIN 30.5 pg (28-32); MEAN CORPUSCULAR HGB CONC 31.1 g/dL (31-35); MONOCYTES # (AUTO) 1.7 (0.2-0.8); MONOCYTES % 10.9 % (4.4-11.3); NEUTROPHILS # (AUTO) 10.6 (2.1-6.9); NEUTROPHILS % 67.6 % (38.7-80.0); PLATELET COUNT 291 x10e3/uL (140-360); RED BLOOD COUNT 3.54 x10e6/uL (4.3-5.7); RED CELL DISTRIBUTION WIDTH 15.5 % (11.7-14.4)
[2018-04-11 06:30] LABS: ANION GAP 19.3 mmol/L (8-16); CALCIUM 10.4 mg/dL (8.4-10.2); CREATININE, SERUM 4.26 mg/dL (0.72-1.25); MAGNESIUM 2.3 MG/DL (1.3-2.1); PHOSPHORUS 6.3 MG/DL (2.3-4.7); POTASSIUM 4.3 mmol/L (3.5-5.1)
[2018-04-11] MEDS: ACETYLCYSTEINE 20% INHAL SOLN 30 ML VIAL INH SCH ×2 (06:35→19:30)
[2018-04-11] MEDS: GLUCOSAMINE SULFATE 500 MG PO SCH (09:00)
[2018-04-11] MEDS: NABUMETONE 750 MG PO SCH ×2 (09:00→17:00)
[2018-04-11] MEDS: PANTOPRAZOLE 40 MG 10ML VIAL IV SCH (09:28)
[2018-04-11] MEDS: METOCLOPRAMIDE HCL 10 MG/2ML VIAL IV SCH ×3 (09:28→21:06)
[2018-04-11] MEDS: BALSAM PERU/CASTOR OIL 60 GM OINT...G. TP SCH (09:28)
[2018-04-11] MEDS: MIDODRINE 2.5 MG TAB PO SCH ×3 (09:28→16:00)
[2018-04-11] MEDS: CHOLECALCIFEROL 1,000 UNIT TAB PO SCH (09:28)
[2018-04-11] MEDS: AMIODARONE HCL 200 MG TAB PO SCH ×2 (09:28→18:26)
[2018-04-11] MEDS: MULTIVITAMINS/MINERALS TAB PO SCH (09:28)
[2018-04-11 10:31] LABS: BAND NEUTROPHILS % (MANUAL) 3 %; EOSINOPHILS % (MANUAL) 1 % (0-7); LYMPHOCYTES % (MANUAL) 12 % (19-48); METAMYELOCYTES % (MANUAL) 2 % (0-0); MONOCYTES % (MANUAL) 12 % (3.4-9.0); NEUTROPHILS % (MANUAL) 69 % (40-74)
[2018-04-11 10:32] LABS: PLATELET ESTIMATE ADEQUATE; PLATELET MORPHOLOGY COMMENT NORMAL; RBC MORPHOLOGY COMMENT NORMAL
[2018-04-11 14:12] LABS: ABG HCO3 26 mmol/L (23-28); ABG PCO2 40 mmHg (41-51); ABG PH 7.42 (7.31-7.41); ABG PO2 87 mmHg (80-105)
--- NOTE | 2018-04-11 14:47 | Progress Note ---
DATE: April 11, 2018 CARDIOLOGY PROGRESS NOTE OBJECTIVE: VITAL SIGNS: Temperature 99.9, heart rate 121, respiratory rate 22, blood pressure 101/54. O2 sat 97%. GENERAL: Intubated and sedated. Opens eyes to physical stimulus. CHEST: Coarse breath sounds. CARDIOVASCULAR: Regular rate and rhythm. Normal S1 and S2. On telemetry, sinus tachycardia. ABDOMEN: Soft, morbidly obese. EXTREMITIES: With 1+ edema. CARDIOVASCULAR MEDICATIONS: 1. On vasopressin at 0.01 mg today. 2. Midodrine 10 mg t.i.d. p.o. 3. Amiodarone 200 mg b.i.d. p.o. 4. Atorvastatin 20 mg nightly. 5. Metoprolol tartrate 2.5 mg q.6 hours p.r.n. IV. STUDIES: White blood cells 15.6, hemoglobin 10.8, platelets 291. Sodium 136, potassium 4.3, chloride 98, bicarbonate 23, BUN 101, creatinine 4.2, glucose 245. Magnesium 2.3, phosphorus 6.3, calcium 10.4. ASSESSMENT: 1. Suspected pulmonary embolism. Unable to confirm. 2. Status post pulseless electrical activity cardiac arrest. 3. Severe sepsis with septic shock, on vasopressors. 4. Acute kidney injury, on dialysis. 5. Pneumonia, status post aspiration. 6. Diabetes mellitus. 7. Acute on chronic diastolic heart failure. 8. History of hypertension. 9. Paroxysmal atrial fibrillation. PLAN: 1. Being empirically treated for pulmonary embolism with Arixtra. Defer to primary service and hematology dosing. Patient might undergo for tracheostomy tomorrow. May need short-term holding in relationship to procedure. 2. Continue rest of cardiovascular medications. In sinus tachycardia currently, not with episodes of AFib with RVR at this point. Continue current cardiovascular medications as above. Job#: [id number] EV
[2018-04-11] MEDS: ATORVASTATIN 20 MG TAB PO SCH (21:06)
[2018-04-11] MEDS: INSULIN DETEMIR 100 UNIT/ML PEN SQ SCH (21:06)
[2018-04-12] VITALS (118 sets, daily range): BP systolic 61–165; BP diastolic 50–116
[2018-04-12] MEDS: ALBUTEROL SULF 0.083% NEB SOLN 3 ML NEB NEB SCH ×4 (01:15→20:10)
[2018-04-12] MEDS: BALSAM PERU/CASTOR OIL 60 GM OINT...G. TP SCH ×2 (03:45→08:57)
[2018-04-12] MEDS: INSULIN LISPRO 100 UNIT/1 ML 3ML VIAL SQ SCH ×6 (05:23→22:13)
[2018-04-12 05:55] LABS: BASOPHILS # (AUTO) 0.2 (0.0-0.1); BASOPHILS % 1.2 % (0.0-1.0); EOSINOPHILS # (AUTO) 0.3 (0.0-0.4); EOSINOPHILS % 2.2 % (0.0-6.0); HEMATOCRIT 33.5 % (38.2-49.6); HEMOGLOBIN 10.8 g/dL (14.0-18.0); LYMPHOCYTES # (AUTO) 1.3 (1.0-3.2); LYMPHOCYTES % 8.7 % (18.0-39.1); MEAN CORPUSCULAR HEMOGLOBIN 31.5 pg (28-32); MEAN CORPUSCULAR HGB CONC 32.2 g/dL (31-35); MEAN CORPUSCULAR VOLUME 97.7 fL (81-99); MONOCYTES # (AUTO) 1.6 (0.2-0.8); MONOCYTES % 10.4 % (4.4-11.3); NEUTROPHILS # (AUTO) 10.6 (2.1-6.9); PLATELET COUNT 288 x10e3/uL (140-360); RED BLOOD COUNT 3.43 x10e6/uL (4.3-5.7); RED CELL DISTRIBUTION WIDTH 15.4 % (11.7-14.4)
[2018-04-12 06:13] LABS: INR 1.37; PROTHROMBIN TIME 15.9 seconds (11.9-14.5)
[2018-04-12 06:14] LABS: PARTIAL THROMBOPLASTIN TIME 36.8 seconds (23.8-35.5)
[2018-04-12] MEDS ORDERED: LIDOCAINE 1% W/EPINEPHRINE 20 ML VIAL ONE (06:30)
[2018-04-12] MEDS: METOPROLOL TARTRATE INJ 1 MG/ML VIAL IV PRN ×2 (07:00→13:30)
[2018-04-12 07:29] LABS: ANION GAP 21.5 mmol/L (8-16); CALCIUM 10.1 mg/dL (8.4-10.2); CREATININE, SERUM 4.72 mg/dL (0.72-1.25); POTASSIUM 4.5 mmol/L (3.5-5.1)
[2018-04-12 07:35] LABS: BAND NEUTROPHILS % (MANUAL) 2 %; LYMPHOCYTES % (MANUAL) 9 % (19-48); METAMYELOCYTES % (MANUAL) 1 % (0-0); MONOCYTES % (MANUAL) 9 % (3.4-9.0); MYELOCYTES % (MANUAL) 1 % (0-0); NEUTROPHILS % (MANUAL) 77 % (40-74); PLATELET ESTIMATE ADEQUATE; PLATELET MORPHOLOGY COMMENT NORMAL; RBC MORPHOLOGY COMMENT NORMAL
[2018-04-12] MEDS: ACETYLCYSTEINE 20% INHAL SOLN 30 ML VIAL INH SCH ×2 (08:10→20:21)
[2018-04-12] MEDS ORDERED: SODIUM CHLORIDE 0.9% 500ML 500 ML ONE (08:15)
--- NOTE | 2018-04-12 08:33 | Operative Report ---
DATE OF PROCEDURE: April 12, 2018 PREOPERATIVE DIAGNOSIS: Respiratory failure. POSTOPERATIVE DIAGNOSIS: Respiratory failure. TITLE OF PROCEDURE: Tracheostomy. ANESTHESIA: General. ESTIMATED BLOOD LOSS: Less than 30 mL. COMPLICATIONS: None. OPERATIVE FINDINGS: Normal neck anatomy. OPERATIVE INDICATIONS: This 67-year-old man presents with a history of respiratory failure which necessitated prolonged intubation and ventilator support. He was medically unstable, requiring high levels of PEEP and vasopressor support. After he was medically stabilized, it was elected to perform the tracheostomy. The risks, benefits and alternatives to surgical intervention were discussed in detail with the patient's family, and they gave their informed consent to have this procedure performed. NARRATIVE REPORT: After 1st obtaining adequate general anesthesia through the previously placed endotracheal tube, the area of incision was infiltrated with 1% lidocaine with epinephrine 1:100,000. Total of 9 mL was used. The patient was then prepped and draped in the usual fashion. A 3-cm incision was then made 2 cm above the sternal notch with a #15 blade and then carried through the subcutaneous tissues using the Bovie form designer. The strap muscles were identified and divided in the midline, then reflected laterally with the Gelpi retractor. The thyroid isthmus was transected using the Bovie form designer. Hemostasis was obtained using 2-0 silk suture ligation of the thyroid isthmus stump and Bovie coagulation. The trachea was identified, and a cricoid hook was inserted. Incision was then made between the 2nd and 3rd tracheal rings with a #15 blade, and an inferiorly based trapezoidal flap was created using curved To scissors. The endotracheal tube was partially withdrawn. The #8 Shiley XLT proximal tracheostomy tube was then easily inserted through the tracheostomy site. CO2 was confirmed in the exhaled gases. The retractors were removed. The tracheostomy tube was sutured in place with 2-0 nylon, and trach ties were applied. The patient was in satisfactory condition at the termination of the procedure. Job#: [id number]
[2018-04-12] MEDS ORDERED: NOREPINEPHRINE 8 MG/D5W 250 ML 250 ML ONE (08:47)
[2018-04-12] MEDS: NOREPINEPHRINE INJ 4MG/4ML 8 MG in DEXTROSE 5% 250ML 250 ML IV PRN (08:56)
[2018-04-12] MEDS: MIDAZOLAM HCL 2 MG/2 ML VIAL IV PRN (08:56)
[2018-04-12] MEDS: NABUMETONE 750 MG PO SCH ×2 (08:57→16:06)
[2018-04-12] MEDS: GLUCOSAMINE SULFATE 500 MG PO SCH (08:57)
[2018-04-12] MEDS: METOCLOPRAMIDE HCL 10 MG/2ML VIAL IV SCH ×3 (08:57→22:11)
[2018-04-12] MEDS: AMIODARONE HCL 200 MG TAB PO SCH ×2 (08:57→16:06)
[2018-04-12] MEDS: CHOLECALCIFEROL 1,000 UNIT TAB PO SCH (08:57)
[2018-04-12] MEDS: PANTOPRAZOLE 40 MG 10ML VIAL IV SCH (08:57)
[2018-04-12] MEDS: MULTIVITAMINS/MINERALS TAB PO SCH (08:57)
[2018-04-12] MEDS: MIDODRINE 2.5 MG TAB PO SCH ×3 (08:57→16:06)
[2018-04-12] MEDS ORDERED: HYDROMORPHONE 1MG/1ML INJ IV PRN (09:15)
[2018-04-12] MEDS: HYDROMORPHONE 2MG/ML INJ IV PRN ×3 (10:47→23:33)
--- NOTE | 2018-04-12 11:26 | Progress Note ---
DATE: April 12, 2018 CARDIOLOGY PROGRESS NOTE SUBJECTIVE: The patient is status post tracheostomy this morning. He is currently on vasopressin 0.07 units per minute and Levophed 5 mcg per minute during dialysis. He continues to have significant ventilatory requirements with an FiO2 of 60% and a PEEP of 8. The patient is awake now. Appears to be attempting to respond to questions. OBJECTIVE VITALS: Temperature 100 degrees, pulse 112, respiratory rate 30, blood pressure 114/98, oxygen saturation 98% on mechanical ventilation. GENERAL: Morbidly obese man in no acute distress. Awake and attempting to respond to questions. Status post tracheostomy. LUNGS: Coarse breath sounds. No wheezes or crackles. CARDIOVASCULAR: Normal rate, regular rhythm. Normal S1 and S2. No murmur. ABDOMEN: Soft. EXTREMITIES: There is 1+ pitting edema of bilateral lower extremities. CARDIAC MEDICATIONS 1. Amiodarone 200 mg p.o. b.i.d. 2. Midodrine 10 mg p.o. t.i.d. 3. Levophed 5 mg per minute. 4. Atorvastatin 20 mg p.o. nightly. 5. Vasopressin 0.07 units per minute. LABS: WBC 15.34, hemoglobin 10.8, hematocrit 33.5, and platelets 288,000. Sodium 137, potassium 4.5, chloride 98, CO2 22, BUN 120, creatinine 4.72. TELEMETRY: Atrial fibrillation with rapid ventricular response. IMPRESSION 1. Status post pulseless electrical activity arrest. 2. Septic shock requiring vasopressor support. 3. Suspected pulmonary embolus, unable to confirm due to inability to CT the patient. 4. Acute kidney injury, currently on hemodialysis. 5. Multifocal pneumonia. 6. Suspected aspiration pneumonia. 7. Acute respiratory failure on ventilator support. 8. Paroxysmal atrial fibrillation with rapid ventricular response. 9. Diabetes mellitus. 10. Fgpww-fd-hmngarw diastolic heart failure. 11. Hypertension, currently hypotensive as above. RECOMMENDATIONS: The patient is on Arixtra per hematology. Continue current cardiac medications. Ability to use WW-vpkbq-qninsodl agents is limited by the patient's hypotension requiring vasopressor support. Continue amiodarone. As the patient's pressor requirements improve, will attempt to challenge with beta blockade at that time. Continue current cardiac medications otherwise. Volume management per nephrology given acute kidney injury with requirement for dialysis. Continue to monitor mental status. He is gradually improving. His prognosis is guarded. Thank you for this consult. We will continue to follow. Job#: [id number] AMY
[2018-04-12] MEDS: EPOETIN ALFA 10000 UNIT/ML VIAL SC SCH (12:39)
[2018-04-12] MEDS: VASOPRESSIN 100 UNIT in DEXTROSE 5% 100ML 100 ML IV PRN (14:44)
[2018-04-12] MEDS ORDERED: FENTANYL CITRATE/PF 100MCG/2 ML INJ ONE (14:49)
[2018-04-12] MEDS ORDERED: MIDAZOLAM HCL 2 MG/2 ML VIAL ONE (14:49)
[2018-04-12] MEDS ORDERED: SEVOFLURANE INHAL SOLN 250 ML PEN BTL ONE (19:47)
[2018-04-12] MEDS ORDERED: ROCURONIUM BROMIDE 10 MG/ML 5ML VIAL ONE (19:47)
[2018-04-12] MEDS ORDERED: PHENYLEPHRINE HCL 1% 10 MG/ML VIAL ONE (19:47)
[2018-04-12] MEDS ORDERED: INSULIN DETEMIR 100 UNIT/ML PEN SQ SCH (21:00)
[2018-04-12 21:48] LABS: BASOPHILS # (AUTO) 0.2 (0.0-0.1); BASOPHILS % 0.8 % (0.0-1.0); EOSINOPHILS # (AUTO) 0.2 (0.0-0.4); EOSINOPHILS % 0.7 % (0.0-6.0); HEMATOCRIT 36.2 % (38.2-49.6); HEMOGLOBIN 11.5 g/dL (14.0-18.0); LYMPHOCYTES # (AUTO) 2.3 (1.0-3.2); MEAN CORPUSCULAR HEMOGLOBIN 31.4 pg (28-32); MEAN CORPUSCULAR HGB CONC 31.8 g/dL (31-35); MEAN CORPUSCULAR VOLUME 98.9 fL (81-99); MONOCYTES # (AUTO) 2.6 (0.2-0.8); NEUTROPHILS # (AUTO) 16.3 (2.1-6.9); NEUTROPHILS % 70.3 % (38.7-80.0); PLATELET COUNT 269 x10e3/uL (140-360); RED BLOOD COUNT 3.66 x10e6/uL (4.3-5.7); RED CELL DISTRIBUTION WIDTH 15.4 % (11.7-14.4)
[2018-04-12] MEDS: ATORVASTATIN 20 MG TAB PO SCH (22:11)
[2018-04-12 22:17] LABS: ABG HCO3 22 mmol/L (23-28); ABG PCO2 46 mmHg (41-51); ABG PH 7.29 (7.31-7.41); ABG PO2 60 mmHg (80-105)
[2018-04-12 22:26] LABS: INR 1.39
[2018-04-12 22:27] LABS: PARTIAL THROMBOPLASTIN TIME 32.8 seconds (23.8-35.5)
--- NOTE | 2018-04-12 22:51 | Diagnostic Imaging Report ---
EXAMINATION: CHEST SINGLE (PORTABLE) INDICATION: New tracheostomy COMPARISON: April 10, 2018 FINDINGS: TUBES and LINES: Interval exchange of endotracheal tube for tracheostomy with tip at the mid trachea in suboptimal position. Mild advancement is recommended x 2 cm. NG tube is stable. Right IJ central line catheters including a single-lumen and double lumen are stable LUNGS: Lungs are not well inflated. There are bibasilar atelectasis. Right lower lobe atelectasis/consolidation may be related to aspiration There is mild prominence of the central pulmonary vasculature, consistent with pulmonary venous congestion. PLEURA: Small bilateral pleural effusions are suspected. HEART AND MEDIASTINUM: Cardiac size is moderately enlarged, most likely related to AP portable technique. BONES AND SOFT TISSUES: No acute osseous lesion. Soft tissues are unremarkable. UPPER ABDOMEN: No free air under the diaphragm. IMPRESSION: 1. New tracheostomy tube is in suboptimal position, mild advancement is recommended as above. 2. Other supporting lines and tubes are in good position. 3. Bibasilar atelectasis and right lower lobe consolidation. Signed by: Dr. Trace Panchal M.D. on 04/12/2018 10:47 PM
[2018-04-13] VITALS (98 sets, daily range): BP systolic 82–127; BP diastolic 44–88
[2018-04-13] MEDS: INSULIN LISPRO 100 UNIT/1 ML 3ML VIAL SQ SCH ×7 (00:14→20:51)
[2018-04-13] MEDS: ALBUTEROL SULF 0.083% NEB SOLN 3 ML NEB NEB SCH ×4 (01:00→20:00)
[2018-04-13] MEDS: MIDAZOLAM HCL 2 MG/2 ML VIAL IV PRN ×2 (03:20→07:48)
[2018-04-13] MEDS: METOPROLOL TARTRATE INJ 1 MG/ML VIAL IV PRN ×2 (03:20→07:56)
[2018-04-13] MEDS: HYDROMORPHONE 2MG/ML INJ IV PRN ×4 (03:28→19:58)
[2018-04-13 06:05] LABS: BASOPHILS # (AUTO) 0.1 (0.0-0.1); BASOPHILS % 0.4 % (0.0-1.0); EOSINOPHILS % 0.1 % (0.0-6.0); HEMATOCRIT 35.1 % (38.2-49.6); LYMPHOCYTES # (AUTO) 1.1 (1.0-3.2); LYMPHOCYTES % 4.6 % (18.0-39.1); MEAN CORPUSCULAR HEMOGLOBIN 31.2 pg (28-32); MEAN CORPUSCULAR HGB CONC 31.3 g/dL (31-35); MEAN CORPUSCULAR VOLUME 99.4 fL (81-99); MONOCYTES # (AUTO) 2.3 (0.2-0.8); MONOCYTES % 9.1 % (4.4-11.3); NEUTROPHILS # (AUTO) 20.1 (2.1-6.9); NEUTROPHILS % 81.5 % (38.7-80.0); PLATELET COUNT 289 x10e3/uL (140-360); RED BLOOD COUNT 3.53 x10e6/uL (4.3-5.7); RED CELL DISTRIBUTION WIDTH 15.3 % (11.7-14.4)
[2018-04-13 06:21] LABS: INR 1.42; PROTHROMBIN TIME 16.3 seconds (11.9-14.5)
[2018-04-13 06:29] LABS: ANION GAP 21.1 mmol/L (8-16); CALCIUM 9.8 mg/dL (8.4-10.2); CREATININE, SERUM 4.42 mg/dL (0.72-1.25); MAGNESIUM 2.8 MG/DL (1.3-2.1); PHOSPHORUS 7.4 MG/DL (2.3-4.7); POTASSIUM 5.1 mmol/L (3.5-5.1)
--- NOTE | 2018-04-13 06:41 | Diagnostic Imaging Report ---
EXAMINATION: CHEST SINGLE (PORTABLE) INDICATION: No tracheostomy placement. COMPARISON: 04/12/2018 FINDINGS: TUBES and LINES: Endotracheal tube is now visualized with distal tip 4.8 cm above the osmar. NG tube, right IJ central line catheters including a single-lumen and double lumen are again noted is stable position. LUNGS: Lungs are not well inflated. There are bibasilar atelectasis. There is mild prominence of the central pulmonary vasculature, consistent with pulmonary venous congestion. PLEURA: Small bilateral pleural effusions are suspected. HEART AND MEDIASTINUM: Cardiac size is moderately enlarged. There are atherosclerotic calcifications within the aorta. BONES AND SOFT TISSUES: No acute osseous lesion. Soft tissues are unremarkable. UPPER ABDOMEN: No free air under the diaphragm. IMPRESSION: 1. Tubes and lines are in good position. 2. Interval increase in bibasilar atelectasis and suspected pleural effusions. 3. Cardiomegaly with mild pulmonary edema. Signed by: Dr. Trace Panchal M.D. on 04/13/2018 6:37 AM
[2018-04-13 07:42] LABS: ANISOCYTOSIS SLIGHT; BAND NEUTROPHILS % (MANUAL) 1 %; LYMPHOCYTES % (MANUAL) 3 % (19-48); MONOCYTES % (MANUAL) 9 % (3.4-9.0); NEUTROPHILS % (MANUAL) 87 % (40-74)
[2018-04-13 07:43] LABS: HYPOCHROMASIA SLIGHT; PLATELET ESTIMATE ADEQUATE; PLATELET MORPHOLOGY COMMENT NORMAL; RBC MORPHOLOGY COMMENT NORMAL
[2018-04-13] MEDS: ACETYLCYSTEINE 20% INHAL SOLN 30 ML VIAL INH SCH ×2 (07:45→19:00)
[2018-04-13] MEDS ORDERED: VANCOMYCIN 1GM/NS 250 ML 250 ML IV SCH ×3 (08:00→16:00)
[2018-04-13] MEDS: MIDODRINE 2.5 MG TAB PO SCH ×3 (08:20→18:03)
[2018-04-13] MEDS: AMIODARONE HCL 200 MG TAB PO SCH ×2 (08:20→15:42)
[2018-04-13] MEDS: PANTOPRAZOLE 40 MG 10ML VIAL IV SCH (08:20)
[2018-04-13] MEDS: METOCLOPRAMIDE HCL 10 MG/2ML VIAL IV SCH ×3 (08:20→20:09)
[2018-04-13] MEDS: GLUCOSAMINE SULFATE 500 MG PO SCH (09:00)
[2018-04-13] MEDS: NABUMETONE 750 MG PO SCH ×2 (09:00→15:25)
[2018-04-13] MEDS ORDERED: ASPIRIN 81 MG CHEW TAB PO SCH (09:00)
[2018-04-13] MEDS ORDERED: FONDAPARINUX SODIUM 10 MG/0.8 ML SYR SQ SCH (09:00)
[2018-04-13] MEDS: CHOLECALCIFEROL 1,000 UNIT TAB PO SCH (09:00)
[2018-04-13] MEDS: MULTIVITAMINS/MINERALS TAB PO SCH (09:00)
[2018-04-13] MEDS: BALSAM PERU/CASTOR OIL 60 GM OINT...G. TP SCH (09:23)
[2018-04-13] MEDS: CEFEPIME HCL 1 GM VIAL IV SCH (10:30)
--- NOTE | 2018-04-13 11:01 | Progress Note ---
DATE: April 13, 2018 CARDIOLOGY PROGRESS NOTE SUBJECTIVE: The patient had bleeding from the tracheostomy site overnight with hemoptysis. NG tube was placed to low continuous suction with bright red blood noted in the suction cannister. At this time, the patient had decrease in oxygen saturation to the 80s requiring increase in FIO2. The patient is not currently bleeding on evaluation. He is on an FIO2 of 90% with a PEEP of 8 requiring Levophed 7 mcg per minute and vasopressin 0.07 units per minute for vasopressor support. He is awake, but is not interacting at this time. OBJECTIVE VITALS: Temperature 101.2 degrees, pulse 123, respiratory rate 28, blood pressure 108/54, oxygen saturation 97% on mechanical ventilation. GENERAL: Morbidly obese man in no acute distress. Awake and not responsive. Status post tracheostomy. Dried blood is noted around the tracheostomy site. LUNGS: Coarse breath sounds. No wheezes or crackles. CARDIOVASCULAR: Tachycardic but regular. Normal S1 and S2. No murmur. ABDOMEN: Soft. EXTREMITIES: One plus pitting edema of bilateral lower extremities. CARDIAC MEDICATIONS 1. Amiodarone 200 mg p.o. b.i.d. 2. Midodrine 10 mg p.o. t.i.d. 3. Atorvastatin 20 mg p.o. at bedtime. 4. Vasopressin 0.07 units per minute. 5. Levophed 7 mcg per minute. 6. Aspirin 81 mg p.o. daily. 7. Mxqvmprgemdp27 mg subcutaneous daily. LABS: WBC 24.7, hemoglobin 11, hematocrit 35.1, and platelets 289,000. Sodium 134, potassium 5.1, chloride 95, CO2 23, BUN 89, creatinine 4.42. Chest x-ray with interval increase in bibasilar atelectasis and suspected pleural effusion, cardiomegaly with small pulmonary edema. Telemetry is sinus tachycardia. IMPRESSION 1. Status post pulseless electrical activity arrest. 2. Septic shock requiring vasopressor support. 3. Suspected pulmonary embolus: Unable to confirm due to inability to computerized tomography the patient. 4. Hemoptysis. 5. Acute kidney injury, currently on hemodialysis. 6. Multifocal pneumonia. 7. Suspected aspiration pneumonia. 8. Acute respiratory failure, on ventilatory support. 9. Paroxysmal atrial fibrillation with rapid ventricular response: Currently, sinus tachycardia. 10. Diabetes mellitus. 11. Dwhfl-es-rnjwtsq diastolic heart failure. 12. Hypertension: Currently, hypotensive as above. RECOMMENDATIONS: The patient is now febrile. We will repeat blood cultures and urine culture. IV antibiotics per infectious disease. Arixtra is currently on hold. Management per hematology. Check BNP. Volume management per nephrology given acute kidney injury requiring hemodialysis. Ventilator management per pulmonary. Monitor the patient's mental status as he remains unresponsive off sedation. Continue current cardiac medications otherwise. The patient's prognosis is guarded. Thank you for this consult. We will continue to follow. Job#: [id number] TATUM
[2018-04-13] MEDS ORDERED: INSULIN REGULAR, HUMAN 3ML VL 100 UNIT in SODIUM CHLORIDE 0.45% 100 ML 100 ML IV SCH ×2 (14:05)
[2018-04-13] MEDS ORDERED: DEXTROSE 50% SYRINGE 50 ML IV PRN (14:15)
[2018-04-13 16:09] LABS: BILIRUBIN,URINE 2+ (NEGATIVE); CLARITY,URINE TURBID (CLEAR); COLOR,URINE YELLOW (YELLOW); KETONES,URINE NEGATIVE (NEGATIVE); LEUKOCYTE ESTERASE ,URINE 1+ (NEGATIVE); NITRITE,URINE NEGATIVE (NEGATIVE); PROTEIN,URINE DIPSTICK 2+ (NEGATIVE); URINE UROBILINOGEN 0.2 mg/dL (0.2 - 1)
[2018-04-13 16:21] LABS: CALCIUM 10.1 mg/dL (8.4-10.2); CREATININE, SERUM 5.25 mg/dL (0.72-1.25)
[2018-04-13 16:24] LABS: HEMATOCRIT 35.3 % (38.2-49.6); HEMOGLOBIN 11.1 g/dL (14.0-18.0)
[2018-04-13 16:25] LABS: BACTERIA,URINE MANY /HPF; MUCUS,URINE FEW (RARE)
[2018-04-13] MEDS ORDERED: SODIUM BICARBONATE 8.4% INJ 50 ML SYR IV NR (16:39)
[2018-04-13] MEDS: NOREPINEPHRINE INJ 4MG/4ML 8 MG in DEXTROSE 5% 250ML 250 ML IV PRN (18:03)
[2018-04-13] MEDS: VASOPRESSIN 100 UNIT in DEXTROSE 5% 100ML 100 ML IV PRN (18:03)
[2018-04-13] MEDS: ATORVASTATIN 20 MG TAB PO SCH (20:09)
[2018-04-13 20:25] LABS: MAGNESIUM 2.3 MG/DL (1.3-2.1); PHOSPHORUS 9.9 MG/DL (2.3-4.7)
[2018-04-13] MEDS ORDERED: INSULIN DETEMIR 100 UNIT/ML PEN SQ SCH (21:00)
[2018-04-13] MEDS ORDERED: SOD POLYSTYRENE SULFONATE SUSP 15 GM/60 ML BTL NG NR (21:30)
[2018-04-14] VITALS (84 sets, daily range): BP systolic 79–135; BP diastolic 54–115
[2018-04-14] MEDS: INSULIN LISPRO 100 UNIT/1 ML 3ML VIAL SQ SCH ×4 (00:11→12:00)
[2018-04-14] MEDS ORDERED: SOD POLYSTYRENE SULFONATE SUSP 15 GM/60 ML BTL NG ONE (00:30)
[2018-04-14 01:15] LABS: ANION GAP 23.8 mmol/L (8-16); CALCIUM 9.9 mg/dL (8.4-10.2); CREATININE, SERUM 5.54 mg/dL (0.72-1.25); POTASSIUM 4.8 mmol/L (3.5-5.1)
[2018-04-14] MEDS: HYDROMORPHONE 2MG/ML INJ IV PRN ×4 (04:05→16:49)
[2018-04-14 04:36] LABS: BASOPHILS # (AUTO) 0.1 (0.0-0.1); BASOPHILS % 0.5 % (0.0-1.0); EOSINOPHILS # (AUTO) 0.1 (0.0-0.4); EOSINOPHILS % 0.3 % (0.0-6.0); HEMATOCRIT 34.3 % (38.2-49.6); HEMOGLOBIN 10.8 g/dL (14.0-18.0); LYMPHOCYTES # (AUTO) 1.4 (1.0-3.2); LYMPHOCYTES % 6.9 % (18.0-39.1); MEAN CORPUSCULAR HEMOGLOBIN 30.8 pg (28-32); MEAN CORPUSCULAR HGB CONC 31.5 g/dL (31-35); MEAN CORPUSCULAR VOLUME 97.7 fL (81-99); MONOCYTES % 9.8 % (4.4-11.3); NEUTROPHILS # (AUTO) 16.3 (2.1-6.9); NEUTROPHILS % 79.5 % (38.7-80.0); PLATELET COUNT 285 x10e3/uL (140-360); RED BLOOD COUNT 3.51 x10e6/uL (4.3-5.7); RED CELL DISTRIBUTION WIDTH 15.2 % (11.7-14.4)
[2018-04-14 04:57] LABS: ALBUMIN 2.7 g/dL (3.5-5.0); ALBUMIN/GLOBULIN RATIO 0.4 (0.8-2.0); ANION GAP 23.9 mmol/L (8-16); CALCIUM 9.9 mg/dL (8.4-10.2); CREATININE, SERUM 5.63 mg/dL (0.72-1.25); POTASSIUM 4.9 mmol/L (3.5-5.1)
[2018-04-14 05:47] LABS: LYMPHOCYTES % (MANUAL) 8 % (19-48); MONOCYTES % (MANUAL) 5 % (3.4-9.0); MYELOCYTES % (MANUAL) 1 % (0-0); NEUTROPHILS % (MANUAL) 86 % (40-74)
[2018-04-14 05:48] LABS: PLATELET ESTIMATE ADEQUATE; PLATELET MORPHOLOGY COMMENT NORMAL; RBC MORPHOLOGY COMMENT NORMAL
--- NOTE | 2018-04-14 06:03 | Diagnostic Imaging Report ---
EXAMINATION: CHEST SINGLE (PORTABLE) INDICATION: Ventilated patient. COMPARISON: 04/13/2018 FINDINGS: TUBES and LINES: Tracheostomy tube is again visualized 7.9 cm above the osmar. Repositioning/advancement is recommended. NG tube, right IJ central line catheters including a single-lumen and double lumen are again noted is stable position. LUNGS: Lungs are not well inflated. There are bibasilar atelectasis. There is mild prominence of the central pulmonary vasculature, consistent with pulmonary venous congestion and mild interstitial edema. PLEURA: Small bilateral pleural effusions are suspected. HEART AND MEDIASTINUM: Cardiac size is moderately enlarged. There are atherosclerotic calcifications within the aorta. BONES AND SOFT TISSUES: No acute osseous lesion. Soft tissues are unremarkable. UPPER ABDOMEN: No free air under the diaphragm. IMPRESSION: 1. Tracheostomy tube appears to be high in the intrathoracic trachea 2. Interval increase in bibasilar atelectasis, and vascular congestion. 3. Cardiomegaly with persistent pulmonary edema. Signed by: Dr. Trace Panchal M.D. on 04/14/2018 6:00 AM
[2018-04-14] MEDS: NOREPINEPHRINE INJ 4MG/4ML 8 MG in DEXTROSE 5% 250ML 250 ML IV PRN (06:43)
[2018-04-14] MEDS: ALBUTEROL SULF 0.083% NEB SOLN 3 ML NEB NEB SCH ×4 (07:00→19:00)
[2018-04-14] MEDS: ACETYLCYSTEINE 20% INHAL SOLN 30 ML VIAL INH SCH ×2 (07:00→19:00)
[2018-04-14] MEDS: NABUMETONE 750 MG PO SCH ×2 (09:00→17:00)
[2018-04-14] MEDS: GLUCOSAMINE SULFATE 500 MG PO SCH (09:00)
[2018-04-14] MEDS: MIDODRINE 2.5 MG TAB PO SCH ×3 (09:32→18:25)
[2018-04-14] MEDS: CEFEPIME HCL 1 GM VIAL IV SCH (09:51)
[2018-04-14] MEDS: METOCLOPRAMIDE HCL 10 MG/2ML VIAL IV SCH ×3 (09:51→20:16)
[2018-04-14] MEDS: PANTOPRAZOLE 40 MG 10ML VIAL IV SCH (09:51)
[2018-04-14] MEDS: METOPROLOL TARTRATE INJ 1 MG/ML VIAL IV PRN ×2 (09:53→20:05)
[2018-04-14] MEDS: AMIODARONE HCL 200 MG TAB PO SCH ×2 (12:39→18:25)
[2018-04-14] MEDS ORDERED: VANCOMYCIN 1GM/NS 250 ML 250 ML IV SCH (13:00)
[2018-04-14] MEDS ORDERED: HEPARIN SOD (PORCINE) 1000 UNIT/ML SDV ONE (13:11)
[2018-04-14] MEDS ORDERED: SODIUM CHLORIDE 0.9% 500ML 500 ML ONE (13:32)
[2018-04-14] MEDS ORDERED: INSULIN REGULAR, HUMAN 3ML VL 100 UNIT in SODIUM CHLORIDE 0.45% 100 ML 100 ML IV SCH ×2 (14:00)
[2018-04-14] MEDS ORDERED: DEXTROSE 50% SYRINGE 50 ML IV PRN (14:00)
[2018-04-14] MEDS ORDERED: VANCOMYCIN 750MG/NS 150ML IVPB 150 ML IV SCH (14:00)
[2018-04-14] MEDS: CHOLECALCIFEROL 1,000 UNIT TAB PO SCH (14:34)
[2018-04-14] MEDS: MULTIVITAMINS/MINERALS TAB PO SCH (14:34)
[2018-04-14] MEDS: EPOETIN ALFA 10000 UNIT/ML VIAL SC SCH (14:34)
[2018-04-14] MEDS: BALSAM PERU/CASTOR OIL 60 GM OINT...G. TP SCH (16:44)
[2018-04-14] MEDS ORDERED: DIGOXIN INJ 0.25 MG/ML 2 ML AMP IV ONE (20:15)
[2018-04-14] MEDS: ATORVASTATIN 20 MG TAB PO SCH (20:16)
[2018-04-14] MEDS ORDERED: INSULIN DETEMIR 100 UNIT/ML PEN SQ SCH (21:00)
--- NOTE | 2018-04-14 21:27 | Progress Note ---
DATE: April 14, 2018 CARDIOLOGY PROGRESS NOTE SUBJECTIVE: Patient remains on mechanical ventilation via tracheostomy. His ventilator requirements are improving, now on FIO2 of 50% and PEEP of 5. He continues to require vasopressor support with Levophed 5 mcg per minute and vasopressin 0.07 units per minute. However, he is slightly more awake and alert today compared to prior, still not completely interacting appropriately. OBJECTIVE VITAL SIGNS: Temperature 99.9 degrees, pulse 121, respiratory rate 28, blood pressure 103/75, oxygen saturation 96% on mechanical ventilation. GENERAL: A morbidly obese gentleman in no acute distress. More awake today. However, not completely appropriately responding. Status post tracheostomy. LUNGS: Coarse breath sounds. No wheezes or crackles. CARDIOVASCULAR: Tachycardic. Irregularly irregular. Normal S1 and S2. No murmur. ABDOMEN: Soft. EXTREMITIES: 1+ pitting edema bilateral lower extremities. CARDIAC MEDICATIONS 1. Amiodarone 200 mg p.o. b.i.d. 2. Midodrine 10 mg p.o. t.i.d. 3. Atorvastatin 20 mg p.o. nightly. 4. Levophed 7 mcg per minute. 5. Vasopressin 0.07 units per minute. LABS: WBC 20.46, hemoglobin 10.8, hematocrit 34.3, platelets 285. Sodium 136, potassium 4.9, chloride 95, CO2 22, BUN 121, creatinine 5.63 TELEMETRY: AFib with RVR. IMPRESSION 1. Status post pulseless electrical activity arrest. 2. Septic shock requiring vasopressor support. 3. Suspected pulmonary embolism. Unable to confirm due to inability to CT patient. 4. Hemoptysis, resolved. 5. Acute kidney injury, currently on hemodialysis. 6. Multifocal pneumonia. 7. Suspected aspiration pneumonia. 8. Acute respiratory failure on ventilatory support. 9. Paroxysmal atrial fibrillation with rapid ventricular response. 10. Diabetes mellitus. 11. Cfztr-dh-uhjnnnm diastolic heart failure. 12. Hypertension, currently hypotensive as above. RECOMMENDATIONS: Repeat cultures without growth thus far. IV antibiotics per Infectious Disease. Defer anticoagulation to Hematology. Volume management per Nephrology given acute kidney injury requiring hemodialysis. Monitor patient's mental status. It is slowly improving. Add digoxin given AFib with RVR. We are unable to add beta blockade due to his pressor requirements. His prognosis is guarded. Thank you for this consult. We will continue to follow. Job#: [id number] EV
[2018-04-15] VITALS (54 sets, daily range): BP systolic 80–128; BP diastolic 54–85
[2018-04-15] MEDS: HYDROMORPHONE 2MG/ML INJ IV PRN ×2 (01:00→05:28)
[2018-04-15] MEDS: ALBUTEROL SULF 0.083% NEB SOLN 3 ML NEB NEB SCH ×3 (01:00→13:00)
[2018-04-15 06:22] LABS: ANION GAP 20.9 mmol/L (8-16); CALCIUM 10.1 mg/dL (8.4-10.2); CREATININE, SERUM 4.62 mg/dL (0.72-1.25); POTASSIUM 3.9 mmol/L (3.5-5.1)
[2018-04-15] MEDS: ACETYLCYSTEINE 20% INHAL SOLN 30 ML VIAL INH SCH (07:00)
[2018-04-15] MEDS: GLUCOSAMINE SULFATE 500 MG PO SCH (09:00)
[2018-04-15] MEDS: NABUMETONE 750 MG PO SCH (09:00)
[2018-04-15] MEDS: MIDODRINE 2.5 MG TAB PO SCH ×3 (09:51→16:12)
[2018-04-15] MEDS: PANTOPRAZOLE 40 MG 10ML VIAL IV SCH (09:52)
[2018-04-15] MEDS: CEFEPIME HCL 1 GM VIAL IV SCH (09:52)
[2018-04-15] MEDS: CHOLECALCIFEROL 1,000 UNIT TAB PO SCH (09:52)
[2018-04-15] MEDS: AMIODARONE HCL 200 MG TAB PO SCH ×2 (09:52→16:12)
[2018-04-15] MEDS: MULTIVITAMINS/MINERALS TAB PO SCH (09:52)
[2018-04-15] MEDS: METOCLOPRAMIDE HCL 10 MG/2ML VIAL IV SCH ×2 (09:52→16:11)
[2018-04-15] MEDS: BALSAM PERU/CASTOR OIL 60 GM OINT...G. TP SCH (09:52)
[2018-04-15] MEDS ORDERED: ALBUMIN 5% 250ML IV ONE (14:00)
[2018-04-15] MEDS ORDERED: ALBUMIN 25% 25GM 100 ML IV SCH (14:00)
--- NOTE | 2018-04-15 14:18 | Progress Note ---
DATE: April 15, 2018 CARDIOLOGY PROGRESS NOTE SUBJECTIVE: Patient remains quite somnolent. He will open his eyes to verbal stimuli and visually tracks; however, does not really respond to questions. He continues to require vasopressor support, now down to vasopressin 0.07 units per minute alone. He remains on mechanical ventilation via tracheostomy with 50% FIO2 and a PEEP of 5. OBJECTIVE VITAL SIGNS: Temperature 98.7 degrees, pulse 118, respiratory rate 32, blood pressure 90/60, oxygen saturation 95% on mechanical ventilation. GENERAL: A morbidly obese man in no acute distress, status post tracheostomy. More awake today and visually tracks but does not really respond to questions. LUNGS: Coarse breath sounds. No wheezes or crackles. CARDIOVASCULAR: Tachycardic but regular. Normal S1 and S2. No murmur. ABDOMEN: Soft. EXTREMITIES: 1+ pitting edema bilateral lower extremities. CARDIAC MEDICATIONS 1. Midodrine 10 mg p.o. t.i.d. 2. Amiodarone 200 mg p.o. b.i.d. 3. Atorvastatin 20 mg p.o. nightly. LABS: Sodium 139, potassium 3.9, chloride 98, CO2 24, BUN 77, creatinine 4.62. TELEMETRY: Sinus tachycardia. IMPRESSION 1. Status post pulseless electrical activity arrest. 2. Septic shock requiring vasopressor support. 3. Suspected pulmonary embolism. Unable to confirm due to inability to CT patient. 4. Acute kidney injury, currently initiated on hemodialysis. 5. Multifocal pneumonia. 6. Suspected aspiration pneumonia. 7. Acute respiratory failure on ventilatory support. 8. Paroxysmal atrial fibrillation with rapid ventricular response, currently sinus tachycardia. 9. Diabetes mellitus. 10. Dbuoc-gb-sxtnebb diastolic heart failure. 11. Hypertension, currently hypotensive as above. 12. Hemoptysis, resolved. RECOMMENDATIONS: IV antibiotics per Infectious Disease. Anticoagulation per Hematology as patient was unable to achieve a therapeutic PTT on significant amounts of heparin. Volume management per Nephrology given acute kidney injury requiring hemodialysis. Patient remains tachycardic but is now in sinus rhythm. Unfortunately, our ability to start patient on AV rogerio blocking agents is limited by his continued pressor requirements and marginal blood pressure. Evaluate heart rate response to albumin infusion. Monitor mental status for improvement. His prognosis remains guarded. Thank you for this consult. We will continue to follow. Job#: [id number] EV
--- NOTE | 2018-04-15 14:48 | Discharge Summary ---
TRANSFER SUMMARY PRIMARY CARE PHYSICIAN: Dr. Ben Hoskins. CONSULTANTS 1. Dr. Joey Menezes. 1. Dr. Sunny Ya. 2. Dr. Rey Coleman. 3. Dr. Vu Villanueva. 4. Dr. Aramis Myles. 5. Dr. Cecilio Cat. FINAL DIAGNOSES 1. Status post cardiopulmonary arrest, resuscitated. 1. Mechanical ventilator support, failed weaning extubation, status post tracheostomy. The tracheotomy was done on April 12, 2018. 2. Sepsis with shock. 3. Status post acute respiratory distress syndrome. 4. Aspiration pneumonia with respiratory failure. 5. Morbidly obese with body mass index greater than 60. 6. Acute kidney injury on dialysis now. 7. Baseline diabetes, hypertension. SUMMARY: Patient is a 67-year-old male, came into the hospital with chest pain and shortness of breath. While he was in the hospital, he went into cardiopulmonary arrest, required CPR and subsequently placed on ventilator support. Patient was first thought that he may have had a pulmonary embolism, but that was subsequently, upon more clinical status, pretty much unlikely. He did have aspiration pneumonia and subsequently with multilobar pneumonia and went into ARDS, why he was on ventilator support. Of note, the patient is morbidly obese, very difficult to ventilate at BMI greater than 60. He required 100% oxygen and a significant amount of PEEP up into the 20s in the beginning. Patient was septic in shock. His kidney went into failure and required dialysis. Because of his septic shock, he was requiring multiple-pressor support, first 3, then subsequently titrated down to 2 and then subsequently now 1 with vasopressin. In the meantime, the patient continued with his dialysis. He did receive multiple antibiotics under the care of Dr. Joey Menezes. Patient with difficult ventilation but subsequently improved once his infection got better and along with his dialysis. His FIO2 titrating down to 60% subsequently with PEEP down below 10 and underwent a tracheostomy done by Dr. Aramis Myles on April 12, 2018. Postop the patient had some minor complication with bleeding in the nose and endotracheal area but not major. The patient remained stable with pressor support and continued with his dialysis. He remained sedated, and when he was off sedation he was arousable. The patient is improving significantly. He still remains critical but is adequately better where he will go to long-term acute care. [facility] acute care [facility] came and evaluated the patient, and overall the patient is stable and has been accepted. Currently the patient continues with vancomycin and cefepime. He will continue with ventilator support on a tracheostomy. He does have a nasal tube for feeding. The patient is stable. He is arousable when sedation is off. He is hemodynamically doing okay with 1 pressor, vasopressin, and is titrating downward. The patient is stable now. He will go to the [place] ICU for continuing with his management. His medication list has been done. The patient will transfer today. Dr. Henning is here, and he will see the patient prior to transfer. All consultants have been cleared, and myself and Dr. Henning are here now and we will continue to monitor this patient very closely in the ICU at [place] upon transfer. Please review the consultation note, progress note, as well as his status in the ICU here care. Job#: [id number] CHOCO
[2018-04-15] MEDS ORDERED: INSULIN DETEMIR 100 UNIT/ML PEN SQ SCH (21:00)
== END 2018-04-15 21:00 | DRG 4 ==
LOC: ER 13:39 → ERHOLD 16:13 → ICU 16:48 → MED/SURG 03-22 18:37 → ICU 03-23 04:40
PROVIDERS: ADMIT Internal Medicine; ATTEND Internal Medicine
PROC: 5A1955Z Respiratory Ventilation, Greater than 96 Consecutive Hours (ICD-10-PCS; 2018-03-23)
PROC: 0BH17EZ Insertion of Endotracheal Airway into Trachea, Via Natural or Artificial Opening (ICD-10-PCS; 2018-03-23)
PROC: 5A12012 Performance of Cardiac Output, Single, Manual (ICD-10-PCS; 2018-03-23)
PROC: 02HV33Z Insertion of Infusion Device into Superior Vena Cava, Percutaneous Approach (ICD-10-PCS; 2018-03-23)
PROC: 3E043XZ Introduction of Vasopressor into Central Vein, Percutaneous Approach (ICD-10-PCS; 2018-03-23)
PROC: 5A1D70Z Performance of Urinary Filtration, Intermittent, Less than 6 Hours Per Day (ICD-10-PCS; 2018-03-30)
PROC: 02HV33Z Insertion of Infusion Device into Superior Vena Cava, Percutaneous Approach (ICD-10-PCS; 2018-03-30)
PROC: 02HV33Z Insertion of Infusion Device into Superior Vena Cava, Percutaneous Approach (ICD-10-PCS; 2018-03-30)
PROC: 03HY32Z Insertion of Monitoring Device into Upper Artery, Percutaneous Approach (ICD-10-PCS; 2018-03-30)
PROC: 0B110F4 Bypass Trachea to Cutaneous with Tracheostomy Device, Open Approach (ICD-10-PCS; principal; 2018-04-12 07:00)
DX: E11.649 Type 2 diabetes mellitus with hypoglycemia without coma (principal); I46.9 Cardiac arrest, cause unspecified; A41.9 Sepsis, unspecified organism; R65.21 Severe sepsis with septic shock; J96.00 Acute respiratory failure, unspecified whether with hypoxia or hypercapnia; I50.33 Acute on chronic diastolic (congestive) heart failure; J69.0 Pneumonitis due to inhalation of food and vomit; Z68.44 Body mass index [BMI] 60.0-69.9, adult; L03.116 Cellulitis of left lower limb; L03.115 Cellulitis of right lower limb; I13.0 Hypertensive heart and chronic kidney disease with heart failure and stage 1 through stage 4 chronic kidney disease, or unspecified chronic kidney disease; Z99.11 Dependence on respirator [ventilator] status; D62 Acute posthemorrhagic anemia; N17.0 Acute kidney failure with tubular necrosis; G93.1 Anoxic brain damage, not elsewhere classified; E66.01 Morbid (severe) obesity due to excess calories; E11.65 Type 2 diabetes mellitus with hyperglycemia; Z79.84 Long term (current) use of oral hypoglycemic drugs; I87.2 Venous insufficiency (chronic) (peripheral); I89.0 Lymphedema, not elsewhere classified; S30.0XXA Contusion of lower back and pelvis, initial encounter; X58.XXXA Exposure to other specified factors, initial encounter; L89.102 Pressure ulcer of unspecified part of back, stage 2; B37.2 Candidiasis of skin and nail; Z78.1 Physical restraint status; N18.3 Chronic kidney disease, stage 3 (moderate); E11.22 Type 2 diabetes mellitus with diabetic chronic kidney disease; J44.9 Chronic obstructive pulmonary disease, unspecified; G47.33 Obstructive sleep apnea (adult) (pediatric); E88.09 Other disorders of plasma-protein metabolism, not elsewhere classified; R13.10 Dysphagia, unspecified; I48.0 Paroxysmal atrial fibrillation; Z79.82 Long term (current) use of aspirin
CPT/HCPCS: 36415; 36556; 36569; 36600; 71045; 74018; 74470; 76770; 76937; 80048; 80051; 80053; 80061; 80202; 81001; 81015; 82140; 82550; 82553; 82570; 82805; 82948; 83036; 83605; 83735; 83880; 84100; 84156; 84165; 84300; 84439; 84443; 84484; 85014; 85018; 85025; 85379; 85610; 85730; 86021; 86160; 86704; 86706; 86850; 86900; 87040; 87070; 87086; 87205; 87340; 90962; 93005; 93306; 93970; 94002; 94003; 94640; 94660; 94667; 94668; 96360; 96361; 96365; 96366; 96372; 99285; C1751; J0171; J0330; J0692; J1160; J1170; J1644; J1940; J2150; J2248; J2250; J2270; J2370; J2543; J2765; J3370; J7030; J7040; J7050; J7070; J7799; P9047; Q4081